=== PATIENT | male | born 1970 | race Caucasian/White ===

== ENCOUNTER 2023-06-03 06:41 | Outpatient (OUT) | payer OTHER, SELFPAY ==
[2023-06-03 07:11] LABS: Basophils Absolute Auto 0.1 10^3/uL (0.0-0.1); Basophils Percent Auto 0.7 % (0.2-2.0); Eosinophils Absolute Auto 0.1 10^3/uL (0.0-0.7); Eosinophils Percent Auto 1.5 % (0.9-7.0); Hematocrit 42.1 % (42.0-54.0); Immature Granulocytes Abs Auto 0.02 10^3/uL (0.00-0.03); Immature Granulocytes Pct Auto 0.3 % (0.0-0.5); Lymphocytes Absolute Auto 1.8 10^3/uL (1.2-3.8); Lymphocytes Percent Auto 26.9 % (20.5-60.0); Mean Corpuscular HGB Conc 35.6 g/dL (29.9-35.2); Mean Platelet Volume 9.1 fL (9.5-13.5); Monocytes Absolute Auto 0.3 10^3/uL (0.3-0.8); Monocytes Percent Auto 4.3 % (1.7-12.0); Neutrophils Absolute Auto 4.5 10^3/uL (1.4-6.5); Neutrophils Percent Auto 66.3 % (43.0-75.0); Platelet Count 225 10^3/uL (150-450); Red Blood Count 4.84 10^6/uL (4.70-6.10); Red Cell Distribution Width 12.4 % (11.0-15.0); White Blood Count 6.8 10^3/uL (4.0-11.0)
[2023-06-03 07:51] LABS: Alanine Aminotransferase 33 U/L (16-63); Albumin Globulin Ratio 0.9; Albumin Level 3.6 g/dL (3.4-5.0); Alkaline Phosphatase 105 U/L (46-116); Anion Gap 9.5; Aspartate Amino Transferase 13 U/L (15-37); BUN Creatinine Ratio 12.5; Bilirubin Total 0.4 mg/dL (0.2-1.0); Calcium 8.5 mg/dL (8.5-10.1); Carbon Dioxide 30.1 mmol/L (21.0-32.0); Chloride 102 mmol/L (98-107); Chol HDL Ratio 4.9; Cholesterol 153 mg/dL (<=200); Estimated GFR (African America >60 (>=60); Estimated GFR (Non-African Ame >60 (>=60); Globulin 3.8 g/dL; Glucose 118 mg/dL (74-106); HDL Cholesterol 31 mg/dL (40-60); Potassium 3.6 mmol/L (3.5-5.1); Sodium 138 mmol/L (136-145); Total Protein 7.4 g/dL (6.4-8.2); Triglycerides 532 mg/dL (<=150); VLDL CHOLESTEROL 106.4 mg/dL
[2023-06-03 07:56] LABS: LDL Cholesterol Direct 49 mg/dL; Prostate Specific Antigen Scrn 0.64 ng/mL (<=4.00)
== END 2023-06-03 06:42 | disposition home or self-care (01) ==
LOC: LAB 06:41
PROVIDERS: PCP Internal Medicine; Visit Provider Internal Medicine
DX: Z00.00 Encounter for general adult medical examination without abnormal findings (principal); Z12.5 Encounter for screening for malignant neoplasm of prostate
CPT/HCPCS: 36415; 80053; 80061; 83721; 85025; G0103

== ENCOUNTER 2023-10-04 06:43 | Outpatient (OUT) | payer OTHER, SELFPAY ==
[2023-10-04 07:07] LABS: Basophils Absolute Auto 0.1 10^3/uL (0.0-0.1); Basophils Percent Auto 0.8 % (0.2-2.0); Eosinophils Absolute Auto 0.1 10^3/uL (0.0-0.7); Eosinophils Percent Auto 1.3 % (0.9-7.0); Hematocrit 45.3 % (42.0-54.0); Hemoglobin 15.9 g/dL (14.0-18.0); Immature Granulocytes Abs Auto 0.03 10^3/uL (0.00-0.03); Immature Granulocytes Pct Auto 0.4 % (0.0-0.5); Lymphocytes Absolute Auto 2.1 10^3/uL (1.2-3.8); Lymphocytes Percent Auto 27.2 % (20.5-60.0); Mean Corpuscular HGB Conc 35.1 g/dL (29.9-35.2); Mean Corpuscular Hemoglobin 30.2 pg (25.9-34.0); Mean Platelet Volume 9.1 fL (9.5-13.5); Monocytes Absolute Auto 0.3 10^3/uL (0.3-0.8); Monocytes Percent Auto 4.2 % (1.7-12.0); Neutrophils Absolute Auto 5.1 10^3/uL (1.4-6.5); Neutrophils Percent Auto 66.1 % (43.0-75.0); Platelet Count 221 10^3/uL (150-450); Red Blood Count 5.27 10^6/uL (4.70-6.10); Red Cell Distribution Width 12.1 % (11.0-15.0); White Blood Count 7.7 10^3/uL (4.0-11.0)
[2023-10-04 07:49] LABS: Chol HDL Ratio 3.8; Cholesterol 180 mg/dL (<=200); Glucose 120 mg/dL (74-106); HDL Cholesterol 47 mg/dL (40-60); Thyroid Stimulating Hormone 1.961 uIU/mL (0.358-3.740); Triglycerides 349 mg/dL (<=150); VLDL CHOLESTEROL 69.8 mg/dL
[2023-10-05 04:07] LABS: DHEA-Sulfate 84.3 ug/dL (71.6-375.4); Estradiol 29.1 pg/mL (7.6-42.6); FSH 4.7 mIU/mL (1.5-12.4); Luteinizing Hormone(LH) 4.6 mIU/mL (1.7-8.6); Prolactin 18.3 ng/mL (3.6-25.2)
[2023-10-07 21:06] LABS: Free Testosterone(Direct) 3.6 pg/mL (7.2-24.0); Testosterone 118 ng/dL (264-916)
== END 2023-10-04 06:44 | disposition home or self-care (01) ==
LOC: LAB 06:43
PROVIDERS: PCP Internal Medicine
DX: E29.1 Testicular hypofunction (principal); E29.0 Testicular hyperfunction; R53.83 Other fatigue; E55.9 Vitamin D deficiency, unspecified; Z13.220 Encounter for screening for lipoid disorders
CPT/HCPCS: 36415; 80061; 82306; 82627; 82670; 82947; 83001; 83002; 84146; 84153; 84402; 84403; 84443; 85025

== ENCOUNTER 2024-06-02 06:53 | Outpatient (OUT) | payer OTHER, SELFPAY ==
--- OUTSIDE RECORDS SUMMARY | 2024-06-02 06:56 | XMS_ITS | CCD ---
Author Organization [facility] Care Team Providers Care Dry Wall Installations Mechanic Name Role Phone Lenny Devonte Zafar Unavailable Unavailable Unavailable Deidre, Dr. Mikey Weinberg Attending Kenisha vailable Devonte Galvez yeni Primary Care Unavailabl e Traboulvandana, Dr. Beyer Referring Unavaila ble Traboulssi, Dr. Beyer Attending Unavaila ble Devonte Galvez [facility] Care Unavailabl e Traboulsophiei, Dr. Beyer Referring Unavaila ble Traboulssi, Dr. Beyer Attending Unavaila ble Timothy, Dr. Jax Terry Attending Unava ilable Timothy, Dr. Jax Terry Attending Unava ilable Latanya Fulton Consulting Unavailable Semaskiene, Jane Attending Unavailable SemaskieneJane Admitting Unavailable Devonte Galvez Primary Care Unavailable Jaswinder Bo Referring Unavailable Consuelo Aguirre Consulting Unavailable JiangMikey chung Consulting Unavailable McGuinJax valdez Consulting Unavail able TraboulJaswinder ross Consulting Unavailable Harrison Campoverde Consulting Unavailab Lashawn Cook Consulting Unavailable Luiza Marsh Consulting Unavailable Hattie Mart Consulting Unavailab daya Narayanan, Tyrone Consulting Unavailable Devonte Galvez Unavailable LENNY, DR ROMO Attending Unavailable LENNY, DR ROMO Consulting Unavailable BALL, DR ROMO Primary Care Unavailable BALL, DR ROMO Admitting Unavailable REQUEST, DR MOMIN LISTED Consulting Unavaila ble BALL, DR ROMO Primary Care Unavailable REQUEST, DR MOMIN LISTED Admitting Unavaila ble REQUEST, DR MOMIN LISTED Attending Unavaila ble REQUEST, NONE LISTED Primary Care Unavaila ble MISC, DR ARTHUR Consulting Unavailable MISC, DR ARTHUR Admitting Unavailable MISC, DR ARTHUR Attending Unavailable REQUEST, NONE LISTED Primary Care Unavaila ble MISC, DR DOCTOR Consulting Unavailable [facility], DR DOCTOR Admitting Unavailable [facility], DOCTOR Attending Unavailable MIS, DOCTOR Attending Unavailable MISC, DOCTOR Primary Care Unavailable [facility], DOCTOR Admitting Unavailable JASWINDER BO Attending Unavailable DEVONTE GALVEZ Primary Care UnavailDevonte Liu DO Primary Care Provider Medications Current Medications Medication Drug Class(es) Dates Sig (Normalized) Sig (Original) atorvastatin 10 mg oral tablet (11 sources) HMG-CoA Reductase Inhibitor Start: 12-02-2023 End: 05-29-2024 take 10 mg by mouth once daily Atorvastatin Active 10 MG PO Daily 90 90 May 29, 2024 3:59pm hydrocortisone 25 mg/ml topical cream (1 source) Corticosteroid Start: 09-22-2020 Proctosol HC 2.5 % 1 application Externally Twice a day for 10 day(s) Sep, Active Mens Multivitamin - (5 sources) Mens Multivitami n - as directed Orally Active Yyahyoku-Jlg-Ndmlj-V it K-Lycop (Men's Daily Formula) 400-20-300 mcg tablet (2 sources) Start: 12-02-2023 take 1 tablet by mouth once Pyjhgpol-Dbd-Sahb c-Vit K-Lycop (Men's Daily Formula) 400-20-300 mcg tablet Active TAB PO December 02, 2023 1:00am Start: 12-02-2023 take 1 tablet by emil once Usdqfkzk-Znb-Zzybf-Vit K-Lycop (Men's Daily Formula) 400-20-300 mcg tablet Active TAB PO December 02, 2023 12:00am Vitamin D 50 MCG (1999) (4 sources) take 1 capsule by mo ut once daily Vitamin D 50 MCG (1999) 1 capsule Orally Once a day Active Completed/Discontinued Medications Medication Drug Class(es) Dates Sig (Normalized) Sig (Original) amLODIPine 10 mg oral tablet (9 sources) Dihydropyridine Calcium Channel Dariana Start: 12-02-2023 End: 12-06-2023 take 10 mg by mouth once daily Amlodipine Discontinued 10 MG PO Daily December 02, 2023 1:00am December 06, 2023 2:20pm Start: 08-13-2021 End: 02-18-2022 take 10 mg by mouth once daily Amlodipine Discontinued 10 MG PO Daily August 13, 2021 12:00am February 18, 2022 4:33pm cholecalciferol 0.05 mg oral capsule (3 sources) Vitamin D Start: 12-02-2023 End: 05-29-2024 take 50 ug by mouth once daily Cholecalciferol (Vitamin D3) Discontinued 50 MCG PO Daily December 02, 2023 1:00am May 29, 2024 4:04pm 24 hr dilTIAZem hydrochloride 240 mg extended release oral capsule (17 sources) Calcium Channel Dariana Start: 03-25-2022 End: 10-20-2024 take 360 mg by mouth once daily Diltiazem Hcl Discontinued 360 MG PO Daily December 06, 2023 2:19pm May 29, 2024 4:06pm Start: 02-18-2022 End: 12-06-2023 take 240 mg by mouth once daily Diltiazem Hcl Discontinued 240 MG PO Daily December 03, 2023 4:28pm December 06, 2023 2:35pm hydroCHLOROthiazide 25 mg oral tablet (18 sources) Thiazide Diuretic Start: 08-13-2021 End: 10-20-2024 take 25 mg by mouth once daily Hydrochlorothiazide Discontinued 25 MG PO Daily December 03, 2023 4:29pm January 27, 2024 6:10pm 24 hr metoprolol succinate 50 mg extended release oral tablet (2 sources) beta-Adrenergic Dariana Start: 08-13-2021 End: 02-15-2022 Metoprolol Succinate Discontinued 50 MG PO As Directed August 13, 2021 12:00am February 15, 2022 5:50pm rivaroxaban 20 mg oral tablet (16 sources) Factor Xa Inhibitor Start: 02-18-2022 End: 10-20-2024 take 1 tablet by mouth once daily Rivaroxaban (Xarelto) 20 mg tablet Discontinued 20 MG PO Daily December 03, 2023 4:29pm May 29, 2024 4:06pm valsartan 320 mg oral tablet (16 sources) Angiotensin 2 Receptor Dariana Start: 08-13-2021 End: 10-20-2024 take 320 mg by mouth once daily Valsartan Discontinued 320 MG PO Daily December 03, 2023 4:30pm May 29, 2024 4:06pm Problems Active Problems Problem Classification Problem Date Documented Date Episodic/Chronic Acute bronchitis (5 sources) Acute bronchitis; Translations: [Acute bronchitis due to other specified organisms] Episodic Anal and rectal conditions (9 sources) Perirectal abscess; Translations: [Rectal abscess] Episodic Aortic; peripheral; and visceral artery aneurysms (20 sources) Aortic root dilatation; Translations: [Thoracic aortic ectasia] Onset: 10-14-2023 Chronic Cardiac dysrhythmias (20 sources) Persistent atrial fibrillation; Translations: [Atrial fibrillation] Onset: 02-16-2022 Chronic Conduction disorders (2 sources) Right bundle branch block; Translations: [Unspecified right bundle-branch block] Onset: 10-21-2023 10-21-2023 Chronic Disorders of lipid metabolism (20 sources) Hypertriglyceridemia; Translations: [Pure hyperglyceridemia] Onset: 09-19-2022 Chronic Essential hypertension (20 sources) Benign essential hypertension; Translations: [Benign essential hypertension] Onset: 02-15-2022 Chronic Hemorrhoids (9 sources) Residual hemorrhoidal skin tags; Translations: [Residual hemorrhoidal skin tags] Episodic Inflammation; infection of eye (except that caused by tuberculosis or sexually transmitteddisease) (4 sources) Acute atopic conjunctivitis; Translations: [Acute atopic conjunctivitis, bilateral] Episodic Other aftercare (5 sources) Drug therapy finding; Translations: [Long-term (current) use of anticoagulants] Episodic Other aftercare (5 sources) Long-term current use of anticoagulant; Translations: [bed bug exterminator (current) use of anticoagulants] Episodic Other aftercare (1 source) bed bug exterminator (current) use of anticoagulants Episodic Other and ill-defined heart disease (5 sources) Left ventricular hypertrophy; Translations: [Cardiomegaly] Chronic Other and ill-defined heart disease (4 sources) Cardiomegaly; Translations: [Cardiomegaly] Chronic Other hematologic conditions (4 sources) Secondary polycythemia; Translations: [SECONDARY POLYCYTHEMIA] Onset: 12-24-2022 Episodic Other inflammatory condition of skin (5 sources) Seborrheic dermatitis of scalp; Translations: [Seborrheic dermatitis, unspecified] Episodic Other inflammatory condition of skin (4 sources) Seborrheic dermatitis; Translations: [Seborrheic dermatitis, unspecified] Episodic Other nutritional; endocrine; and metabolic disorders (12 sources) Body mass index 40+ - severely obese; Translations: [Morbid obesity] Onset: 10-21-2023 12-02-2023 Chronic Other nutritional; endocrine; and metabolic disorders (5 sources) Lipoprotein deficiency disorder; 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 Other nutritional; endocrine; and metabolic disorders (9 sources) Morbid obesity; Translations: [Morbid (severe) obesity due to excess calories] Onset: 05-19-2022 Chronic Other nutritional; endocrine; and metabolic disorders (2 sources) Morbid (severe) obesity due to excess calories Chronic Other nutritional; endocrine; and metabolic disorders (4 sources) Lipoprotein deficiency; Translations: [LIPOPROTEIN DEFICIENCY] Onset: 09-14-2022 Chronic Other nutritional; endocrine; and metabolic disorders (4 sources) Obesity; Translations: [Obesity, unspecified] Chronic Other nutritional; endocrine; and metabolic disorders (3 sources) Body mass index (BMI) 40.0-44.9, adult; Translations: [Body mass index (BMI) 40.0-44.9, adult ([facility])] Onset: 10-21-2023 Chronic Other nutritional; endocrine; and metabolic disorders (2 sources) Obesity caused by energy imbalance; Translations: [Morbid (severe) obesity due to excess calories] Onset: 05-19-2022 12-02-2023 Chronic Other screening for suspected conditions (not mental disorders or infectious disease) (2 sources) Encounter for screening for malignant neoplasm of prostate; Translations: [Screening for malignant neoplasms of prostate] Episodic Other upper respiratory disease (4 sources) Allergic rhinitis; Translations: [Allergic rhinitis, unspecified] Chronic Other upper respiratory infections (4 sources) Acute maxillary sinusitis; Translations: [Acute maxillary sinusitis, unspecified] Episodic Residual codes; unclassified (18 sources) Obstructive sleep apnea syndrome; Translations: [Obstructive sleep apnea (adult)(pediatric)] Onset: 10-14-2023 12-02-2023 Chronic Residual codes; unclassified (1 source) Sleep apnea, unspecified; Translations: [G47.30 - Sleep apnea, unspecified] Onset: 02-15-2022 Chronic Residual codes; unclassified (6 sources) Obstructive sleep apnea (adult) (pediatric); Translations: [Obstructive sleep apnea (adult)(pediatric)] Onset: 10-14-2023 Chronic Residual codes; unclassified (2 sources) Sleep apnea; Translations: [Sleep apnea, unspecified] 09-29-2023 Chronic Sprains and strains (8 sources) Neck sprain; Translations: [Strain of muscle, fascia and tendon at neck level, initial encounter] Onset: 11-11-2016 Episodic Unclassified (1 source) I48.91 - Unspecified atrial fibrillation; Translations: [I48.91 - Unspecified atrial fibrillation] Onset: 02-15-2022 Unclassified (2 sources) Other persistent atrial fibrillation; Translations: [Other persistent atrial fibrillation (CMS/HCC)] Onset: 10-14-2023 Viral infection (4 sources) Disease caused by 2019-nCoV; Translations: [COVID-19] Past or Other Problems Problem Classification Problem Date Documented Da te Episodic/Chronic Cardiac dysrhythmias (4 sources) Palpitations; Translations: [Palpitations] Onset: 05-02-2019 Episodic Immunizations and screening for infectious disease (5 sources) Patient encounter status; Translations: [Other specified vaccination] Resolved: 03-04-2023 Episodic Unclassified (5 sources) Never smoked tobacco; Translations: [Never a smoker] Results Test Name Value Interpretation Reference Range Facility ECG 12 Leadon 10-21-2023 Normal sinus rhythm with right bundle branch block [facility] Work Phone: CBC AUTO DIFFon 12-24-2022 BASO # 0.1 103/ul Normal 0.0-0.1 [facility] Comment on above: Performed By: #### C BC #### [facility] [address] [address] [address] Amish Chowdhury Basophils/100 WBC (Bld) 0.7 % Normal 0.2-2.0 [facility] Comment on above: Performed By: #### C BC #### [facility] [address] [address] [address] Amish Chowdhury EO # 0.1 103/ul Normal 0.0-0.7 [facility] Comment on above: Performed By: #### C BC #### [facility] [address] [address] [address] Amish Chowdhury Eosinophils/100 WBC (Bld) 1.2 % Normal 0.9-7.0 [facility] Comment on above: Performed By: #### C BC #### [facility] [address] [place] [address] Dr. Amish Chowdhury Erythrocyte distribution width (RBC) [Ratio] 12.8 % Normal 11.0-15.0 [facility] Comment on above: Performed By: #### C BC #### [facility] [address] [place] [address] Dr. Amish Chowdhury Hematocrit (Bld) [Volume fraction] 47.6 % Normal 42.0-54.0 [facility] Comment on above: Performed By: #### C BC #### [facility] [address] [place] [address] Dr. Amish Chowdhury Hemoglobin (Bld) [Mass/Vol] 16.8 g/dL Normal 14.0-18.0 [facility] Comment on above: Performed By: #### C BC #### [facility] [address] [place] [address] Dr. Amish Chowdhury IG # 0.02 10e3/ul Normal 0.00-0.03 [facility] Comment on above: Performed By: #### C BC #### [facility] [address] [place] [address] Dr. Amish Chowdhury IG % 0.3 % Normal 0.0-0.5 [facility] Comment on above: Performed By: #### C BC #### [facility] [address] [place] [address] Dr. Amish Chowdhury LYMPH # 1.9 103/ul Normal 1.2-3.8 [facility] Comment on above: Performed By: #### C BC #### [facility] [address] [place] [address] Dr. Amish Chowdhury Lymphocytes/100 WBC (Bld) 28.3 % Normal 20.5-60.0 [facility] Comment on above: Performed By: #### C BC #### [facility] [address] [place] [address] Dr. Amish Chowdhury MANUAL DIFF REQ NO Normal [facility] Comment on above: Performed By: #### C BC #### [facility] [address] [place] [address] Dr. Amish Chowdhury MCH (RBC) [Entitic mass] 29.9 pg Normal 25.9-34.0 [facility] Comment on above: Performed By: #### C BC #### [facility] [address] [place] [address] Dr. Amish Chowdhury MCHC (RBC) [Mass/Vol] 35.3 g/dL Critically high 29.9-35.2 [facility] Comment on above: Performed By: #### C BC #### [facility] [address] [place] [address] Dr. Amish Chowdhury MCV (RBC) [Entitic vol] 84.8 fL Normal 80.0-94.0 [facility] Comment on above: Performed By: #### C BC #### [facility] [address] [place] [address] Dr. Amish Chowdhury MONO # 0.2 103/ul Critically low 0.3-0.8 [facility] Comment on above: Performed By: #### C BC #### [facility] [address] [place] [address] Dr. Amish Chowdhury Monocytes/100 WBC (Bld) 3.6 % Normal 1.7-12.0 [facility] Comment on above: Performed By: #### C BC #### [facility] [address] [place] [address] Dr. Amish Chowdhury NEUT # 4.4 103/ul Normal 1.4-6.5 [facility] Comment on above: Performed By: #### C BC #### [facility] [address] [place] [address] Dr. Amish Chowdhury Neutrophils/100 WBC (Bld) 65.9 % Normal 43.0-75.0 [facility] Comment on above: Performed By: #### C BC #### [facility] [address] [place] [address] Dr. Amish Chowdhury Platelet mean volume (Bld) [Entitic vol] 8.9 fL Critically low 9.5-13.5 [facility] Comment on above: Performed By: #### C BC #### [facility] [address] [place] [address] Dr. Amish Chowdhury PLT 210 103/ul Normal 150-450 [facility] Comment on above: Performed By: #### C BC #### [facility] [address] [place] [address] Dr. Amish Chowdhury RBC 5.61 106/ul Normal 4.70-6.10 [facility] Comment on above: Performed By: #### C BC #### [facility] [address] [place] [address] Dr. Amish Chowdhury WBC 6.7 103/ul Normal 4.0-11.0 [facility] Comment on above: Performed By: #### C BC #### [facility] [address] [place] [address] Dr. Amish Chowdhury CBC AUTO DIFFon 10-08-2022 BASO # 0.0 103/ul Normal 0.0-0.1 [facility] Comment on above: Performed By: #### C BC #### [facility] [address] [place] [address] Dr. Amish Chowdhury Basophils/100 WBC (Bld) 0.3 % Normal 0.2-2.0 [facility] Comment on above: Performed By: #### C BC #### [facility] [address] [place] [address] Dr. Amish Chowdhury EO # 0.1 103/ul Normal 0.0-0.7 [facility] Comment on above: Performed By: #### C BC #### [facility] [address] [place] [address] Dr. Amish Chowdhury Eosinophils/100 WBC (Bld) 0.8 % Critically low 0.9-7.0 [facility] Comment on above: Performed By: #### C BC #### [facility] [address] [place] [address] Dr. Amish Chowdhury Erythrocyte distribution width (RBC) [Ratio] 13.1 % Normal 11.0-15.0 [facility] Comment on above: Performed By: #### C BC #### [facility] [address] [place] [address] Dr. Amish Chowdhury Hematocrit (Bld) [Volume fraction] 50.4 % Normal 42.0-54.0 [facility] Comment on above: Performed By: #### C BC #### [facility] [address] [place] [address] Dr. Amish Chowdhury Hemoglobin (Bld) [Mass/Vol] 17.4 g/dL Normal 14.0-18.0 [facility] Comment on above: Performed By: #### C BC #### [facility] [address] [place] [address] Dr. Amish Chowdhury IG # 0.03 10e3/ul Normal 0.00-0.03 [facility] Comment on above: Performed By: #### C BC #### [facility] [address] [place] [address] Dr. Amish Chowdhury IG % 0.3 % Normal 0.0-0.5 [facility] Comment on above: Performed By: #### C BC #### [facility] [address] [place] [address] Dr. Amish Chowdhury LYMPH # 2.5 103/ul Normal 1.2-3.8 [facility] Comment on above: Performed By: #### C BC #### [facility] [address] [place] [address] Dr. Amish Chowdhury Lymphocytes/100 WBC (Bld) 26.6 % Normal 20.5-60.0 [facility] Comment on above: Performed By: #### C BC #### [facility] [address] [place] [address] Dr. Amish Chowdhury MANUAL DIFF REQ NO Normal [facility] Comment on above: Performed By: #### C BC #### [facility] [address] [place] [address] Dr. Amish Chowdhury MCH (RBC) [Entitic mass] 29.8 pg Normal 25.9-34.0 [facility] Comment on above: Performed By: #### C BC #### [facility] [address] [place] [address] Dr. Amish Chowdhury MCHC (RBC) [Mass/Vol] 34.5 g/dL Normal 29.9-35.2 [facility] Comment on above: Performed By: #### C BC #### [facility] [address] [place] [address] Dr. Amish Chowdhury MCV (RBC) [Entitic vol] 86.3 fL Normal 80.0-94.0 [facility] Comment on above: Performed By: #### C BC #### [facility] [address] [place] [address] Dr. Amish Chowdhury MONO # 0.3 103/ul Normal 0.3-0.8 [facility] Comment on above: Performed By: #### C BC #### [facility] [address] [place] [address] Dr. Amish Chowdhury Monocytes/100 WBC (Bld) 3.6 % Normal 1.7-12.0 [facility] Comment on above: Performed By: #### C BC #### [facility] [address] [place] [address] Dr. Amish Chowdhury NEUT # 6.5 103/ul Normal 1.4-6.5 [facility] Comment on above: Performed By: #### C BC #### [facility] [address] [place] [address] Dr. Amish Chowdhury Neutrophils/100 WBC (Bld) 68.4 % Normal 43.0-75.0 [facility] Comment on above: Performed By: #### C BC #### [facility] [address] [place] [address] Dr. Amish Chowdhury Platelet mean volume (Bld) [Entitic vol] 9.5 fL Normal 9.5-13.5 [facility] Comment on above: Performed By: #### C BC #### [facility] [address] [place] [address] Dr. Amish Chowdhury PLT 226 103/ul Normal 150-450 [facility] Comment on above: Performed By: #### C BC #### [facility] [address] [place] [address] Dr. Amish Chowdhury RBC 5.84 106/ul Normal 4.70-6.10 [facility] Comment on above: Performed By: #### C BC #### [facility] [address] [place], [place] [address] Dr. Amish Chowdhury WBC 9.6 103/ul Normal 4.0-11.0 [facility] Comment on above: Performed By: #### C BC #### [facility] [address] [place], [place] [address] Dr. Amish Chowdhury DIRECT LDLon 09-14-2022 Cholesterol in LDL [Mass/Vol] 67 mg/dL Normal [facility] Comment on above: Performed By: #### A LT, DLDL #### [facility] [address] [place], [place] [address] Dr. Amish Chowdhury DLDL NORMAL SEE BELOW Normal [facility] Comment on above: Result Comment: <100 mg/dl OPTIMAL 100 - 129 mg/dl NEAR OR ABOVE OPTIMAL 130 - 159 mg/dl BORDERLINE HIGH 160 - 189 mg/dl HIGH >190 mg/dl VERY HIGH Performed By: #### A LT, DLDL #### [facility] [address] [place], [place] [address] Dr. Amish Chowdhury Office Visit (Cardiology)on 09-14-2022 Follow-up visit Diagnoses/Problems Assessed Persistent atrial fibrillation (427.31) (I48.19) Anticoagulated (V58.61) (Z79.01) Essential hypertension, benign (401.1) (I10) Never a smoker Obstructive sleep apnea syndrome (327.23) (G47.33) Dilated aortic root (447.71) (I77.810) Morbid obesity with BMI of 45.0-49.9, adult (278.01,V85.42) (E66.01,Z68.42) Orders Morbid obesity with BMI of 45.0-49.9, adult Healthy Weight Tips; Status:Complete - Retrospective Authorization; Done: 14Sep2022 Some eating tips that can help you lose weight.; Status:Complete - Retrospective Authorization; Done: 14Sep2022 SocHx: Never a smoker Tobacco Use Screening; Status:Complete; Done: 14Sep2022 Patient Instructions Please bring all medicines, vitamins, and herbal supplements with you when you come to the office. Prescriptions will not be filled unless you are compliant with your follow up appointments or have a follow up appointment scheduled as per instruction of your physician. Refills should be requested at the time of your visit. Follow up in 6 months with EKG Chief Complaint BJ ADAME is being seen for a 6 month follow-up of. History of Present Illness Patient is here for follow-up continue management for history of atrial fibrillation status post recent ELVA guided cardioversion, hypertension, long-term anticoagulation sleep apnea and obesity. Since last time I saw him he denies any cardiac complaint of chest pain, palpitation, lightheadedness, dizziness or syncope. He remains fairly active. He described functional class I. He had no chest pain or shortness of breath. He report compliance with his medication and CPAP. He report laboratory data done recently and we will try to retrieve those results. He had no recurrence of his atrial fibrillation based on his home heart rate monitoring device Assessment 1. Persistent atrial fibrillation status post ELVA guided cardioversion remain in normal sinus rhythm. Patient does have home heart rate monitoring device. He made the criteria for anticoagulation. Remained in normal sinus rhythm 2. Hypertension controlled on home reading 3. Long-term anticoagulation tolerating that well without any side effect 4. Sleep apnea compliant with his CPAP 5. Morbid obesity 6. Mildly dilated aortic root at 3.8 sonometer Plan 1. I recommend the patient to continue present medical therapy 2. I counseled him regarding losing weight, exercise and dietary modification. I advised him to consider bariatric surgery 3. I encouraged him to be compliant with his CPAP machine 4. The natural history of atrial fibrillation discussed with patient at length the possible recurrence and need for ablation and or antiarrhythmic discussed with the patient 5. Follow-up in 6 months or earlier if the need arise 6. We discussed ischemic evaluation but the patient elected to defer in view of excellent exercise tolerance and functional class I Surgical History Problems History of Cardioversion History of Cholecystectomy History of Complete colonoscopy Managed By: Teresita XIAO, Shady Devries (Unknown) Current Meds Medication NameInstruction dilTIAZem HCl ER Coated Beads 360 MG Oral Capsule Extended Release 24 HourTAKE 1 CAPSULE Daily hydroCHLOROthiazide 25 MG Oral TabletTAKE 1 TABLET DAILY. Valsartan 320 MG Oral TabletTAKE 1 TABLET ONCE DAILY. Xarelto 20 MG Oral TabletTAKE 1 TABLET BY MOUTH ONCE DAILY WITH SUPPER Patient did not bring medication list or bottles. Updated verbally with patient Allergies Medication No Known Drug Allergies Recorded By: Megan Blair; 03/25/2022 1:07:58 PM Social History Problems Never a smoker No alcohol use No illicit drug use Occasional caffeine consumption Review of Systems Constitutional: not feeling tired. Cardiovascular: no intermittent leg claudication and as noted in HPI. Respiratory: no cough and no shortness of breath. Gastrointestinal: no change in bowel habits and no blood in stools. Integumentary: no skin rashes. Neurological: no seizures and no frequent falls. All other systems have been reviewed and are negative for complaint. Vitals Vital Signs Recorded: 14Sep2022 09:22AMRecorded: 14Sep2022 09:05AM Pcugzskp415, RUE, Ukknctm324, LUE, Sitting Xcqkxuwlm94, RUE, Ijdvkqt50, LUE, Sitting Heart Rate72, L Radial Height6 ft 4 in Liwuda505 lb BMI Auxwwveclc69.04 kg/m2 BSA Calculated2.88 Tobacco Useb) No Falls Screening (Age 18+)c) Not medically indicated Physical Exam Constitutional: alert and in no acute distress. Neck: neck is supple, symmetric, trachea midline, no masses and no thyromegaly . Pulmonary: no increased work of breathing or signs of respiratory distress and lungs clear to auscultation. Cardiovascular: carotid pulses 2+ bilaterally with no bruit , JVP was normal, no thrills , regular rhythm, normal S1 and S2, no murmurs , pedal pulses 2+ bilaterally and no edema . Abdomen: abdomen non-tender, no masses and no hepatomega (more content not included)... Normal Touchworks SGPTon 09-14-2022 ALT [Catalytic activity/Vol] 27 U/L Normal 16-63 [facility] Comment on above: Performed By: #### A LT, DLDL #### [facility] [address] [place], [place] [address] Dr. Amish Chowdhury Tobacco Screening.on 022 Fall risk assessment c) Not medically indicated -[facility] 250 DO Work Phone: Tobacco use status CP b) No -[facility] 250 DO Work Phone: CBC AUTO DIFFon 06-24-2022 BASO # 0.0 103/ul Normal 0.0-0.1 [facility] Comment on above: Performed By: #### D ATCBC #### [facility] [address] [place] [address] Dr. Amish Chowdhury Basophils/100 WBC (Bld) 0.3 % Normal 0.2-2.0 [facility] Comment on above: Performed By: #### D ATCBC #### [facility] [address] [place] [address] Dr. Amish Chowdhury EO # 0.1 103/ul Normal 0.0-0.7 [facility] Comment on above: Performed By: #### D ATCBC #### [facility] [address] [place] [address] Dr. Amish Chowdhury Eosinophils/100 WBC (Bld) 0.7 % Critically low 0.9-7.0 [facility] Comment on above: Performed By: #### D ATCBC #### [facility] [address] [place] [address] Dr. Amish Chowdhury Erythrocyte distribution width (RBC) [Ratio] 13.9 % Normal 11.0-15.0 [facility] Comment on above: Performed By: #### D ATCBC #### [facility] [address] [place] [address] Dr. Amish Chowdhury Hematocrit (Bld) [Volume fraction] 54.4 % Critically high 42.0-54.0 [facility] Comment on above: Performed By: #### D ATCBC #### [facility] [address] [place] [address] Dr. Amish Chowdhury Hemoglobin (Bld) [Mass/Vol] 17.9 g/dL Normal 14.0-18.0 [facility] Comment on above: Performed By: #### D ATCBC #### [facility] [address] [place] [address] Dr. Amish Chowdhury IG # 0.03 10e3/ul Normal 0.00-0.03 [facility] Comment on above: Performed By: #### D ATCBC #### [facility] [address] [place] [address] Dr. Amish Chowdhury IG % 0.3 % Normal 0.0-0.5 [facility] Comment on above: Performed By: #### D ATCBC #### [facility] [address] [place] [address] Dr. Amish Chowdhury LYMPH # 1.5 103/ul Normal 1.2-3.8 [facility] Comment on above: Performed By: #### D ATCBC #### [facility] [address] [place] [address] Dr. Amish Chowdhury Lymphocytes/100 WBC (Bld) 16.5 % Critically low 20.5-60.0 [facility] Comment on above: Performed By: #### D ATCBC #### [facility] [address] [place] [address] Dr. Amish Chowdhury MCH (RBC) [Entitic mass] 29.1 pg Normal 25.9-34.0 [facility] Comment on above: Performed By: #### D ATCBC #### [facility] [address] [place] [address] Dr. Amish Chowdhury MCHC (RBC) [Mass/Vol] 32.9 g/dL Normal 29.9-35.2 [facility] Comment on above: Performed By: #### D ATCBC #### [facility] [address] [place] [address] Dr. Amish Chowdhury MCV (RBC) [Entitic vol] 88.5 fL Normal 80.0-94.0 [facility] Comment on above: Performed By: #### D ATCBC #### [facility] [address] [place] [address] Dr. Amish Chowdhury MONO # 0.4 103/ul Normal 0.3-0.8 [facility] Comment on above: Performed By: #### D ATCBC #### [facility] [address] [place] [address] Dr. Amish Chowdhury Monocytes/100 WBC (Bld) 4.5 % Normal 1.7-12.0 [facility] Comment on above: Performed By: #### D ATCBC #### [facility] [address] [place] [address] Dr. Amish Chowdhury NEUT # 7.0 103/ul Critically high 1.4-6.5 [facility] Comment on above: Performed By: #### D ATCBC #### [facility] [address] [place] [address] [address] Amish Chowdhury Neutrophils/100 WBC (Bld) 77.7 % Critically high 43.0-75.0 [facility] Comment on above: Performed By: #### D ATCBC #### [facility] [address] [place] [address] [address] Amish Chowdhury Platelet mean volume (Bld) [Entitic vol] 9.4 fL Critically low 9.5-13.5 [facility] Comment on above: Performed By: #### D ATCBC #### [facility] [address] [place] [address] Dr. Amish Chowdhury PLT 238 103/ul Normal 150-450 [facility] Comment on above: Performed By: #### D ATCBC #### [facility] [address] [place] [address] Dr. Amish Chowdhury RBC 6.15 106/ul Critically high 4.70-6.10 [facility] Comment on above: Performed By: #### D ATCBC #### [facility] [address] [place] [address] [address] Amish Chowdhury WBC 9.0 103/ul Normal 4.0-11.0 [facility] Comment on above: Performed By: #### D ATCBC #### [facility] [address] [place] [address] [address] Amish Chowdhury GAIL- BMP WITH LIPIDon 2021 Anion gap [Moles/Vol] 10.4 mmol/L Normal [facility] Comment on above: Performed By: #### D ATPSA, DATBMP #### [facility] [address] [place] [address] [address] Amish Chowdhury Calcium [Mass/Vol] 9.0 mg/dL Normal 8.5-10.1 [facility] Comment on above: Performed By: #### D ATPSA, DATBMP #### [facility] [address] [place] [address] [address] Amish Chowdhury Chloride [Moles/Vol] 101 mmol/L Normal 98-107 [facility] Comment on above: Performed By: #### D ATPSA, DATBMP #### [facility] [address] [place] [address] [address] Amish Chowdhury Cholesterol [Mass/Vol] 178 mg/dL Normal <=200 [facility] Comment on above: Performed By: #### D ATPSA, DATBMP #### [facility] [address] [place] [address] [address] Amish Chowdhury Cholesterol in HDL [Mass/Vol] 41 mg/dL Normal 40-60 [facility] Comment on above: Performed By: #### D ATPSA, DATBMP #### [facility] [address] [place] [address] [address] Amish Chowdhury Cholesterol in LDL [Mass/Vol] 90.0 mg/dL Normal [facility] Comment on above: Performed By: #### D ATPSA, DATBMP #### [facility] [address] [place] [address] [address] Amish Chowdhury CO2 [Moles/Vol] 29.4 mmol/L Normal 21.0-32.0 [facility] Comment on above: Performed By: #### D ATPSA, DATBMP #### [facility] [address] [place] [address] [address] Amish Chowdhury Creatinine [Mass/Vol] 1.21 mg/dL Normal 0.70-1.30 [facility] Comment on above: Performed By: #### D ATPSA, DATBMP #### [facility] [address] [place] [address] [address] Amish Chowdhury EGFR-AF MEXICAN >60 Normal >=60 [facility] Comment on above: Performed By: #### D ATPSA, DATBMP #### [facility] [address] [place] [address] [address] Amish Chowdhury EGFR-NON AF MEXICAN >60 Normal >=60 [facility] Comment on above: Performed By: #### D ATPSA, DATBMP #### [facility] [address] [place] [address] [address] Amish Chowdhury Glucose [Mass/Vol] 107 mg/dL Critically high 74-106 [facility] Comment on above: Performed By: #### D ATPSA, DATBMP #### [facility] [address] [place] [address] [address] Amish Chowdhury HDL NORMAL > or = 60 mg/dl - LO W CARDIOVASCULAR RISK <40 mg/dl - HIGH CARDIOVASCULAR RISK Normal [facility] Comment on above: Performed By: #### D ATPSA, DATBMP #### [facility] [address] [place] [address] [address] Amish Chowdhury LDL CALC NORMAL SEE BELOW Normal [facility] Comment on above: Result Comment: <100 mg/dl OPTIMAL 100 - 129 mg/dl NEAR OR ABOVE OPTIMAL 130 - 159 mg/dl BORDERLINE HIGH 160 - 189 mg/dl HIGH >190 mg/dl VERY HIGH Performed By: #### D ATPSA, DATBMP #### [facility] [address] [place] [address] [address] Amish Chowdhury Potassium [Moles/Vol] 3.8 mmol/L Normal 3.5-5.1 [facility] Comment on above: Performed By: #### D ATPSA, DATBMP #### [facility] [address] [place] [address] [address] Amish Chowdhury Sodium [Moles/Vol] 137 mmol/L Normal 136-145 [facility] Comment on above: Performed By: #### D ATPSA, DATBMP #### [facility] [address] [place] [address] [address] Amish Chowdhury Triglyceride [Mass/Vol] 235 mg/dL Critically high <=150 [facility] Comment on above: Performed By: #### D ATPSA, DATBMP #### [facility] [address] [place] [address] [address] Amish Chowdhury Urea nitrogen [Mass/Vol] 11.0 mg/dL Normal 7.0-18.0 [facility] Comment on above: Performed By: #### D ATPSA, DATBMP #### [facility] [address] [place] [address] [address] Amish Chowdhury Urea nitrogen/Creatinine [Mass ratio] 9.1 mg/mg Normal [facility] Comment on above: Performed By: #### D ATPSA, DATBMP #### [facility] [address] [place] [address] [address] Amish Chowdhury VLDL CALC 47.0 mg/dL Normal [facility] Comment on above: Performed By: #### D ATPSA, DATBMP #### [facility] [address] [place] [address] [address] Amish Chowdhury GLYCOHEMOGLOBIN A1Con 2021 ADA RECOMMENDATION SEE BELOW Normal [facility] Comment on above: Result Comment: ADA RECOMMENDED LIMIT 4.0 - 6.0 ADA THERAPEUTIC TARGET < 7.0 ACTION SUGGESTED > 7.0 Performed By: #### D ATA1C #### [facility] [address] [place] [address] [address] Amish Chowdhury Glucose [Mass/Vol] 111 mg/dL Normal [facility] Comment on above: Performed By: #### D ATA1C #### [facility] [address] [place] [address] [address] Amish Chowdhury HbA1c (Bld) [Mass fraction] 5.5 % Normal 4.5-6.2 [facility] Comment on above: Performed By: #### D ATA1C #### [facility] [address] [place] [address] [address] Amish Chowdhury Office Visit (Cardiology)on 03-25-2022 Follow-up visit Diagnoses/Problems Assessed Persistent atrial fibrillation (427.31) (I48.19) Anticoagulated (V58.61) (Z79.01) Essential hypertension, benign (401.1) (I10) Morbid obesity with BMI of 40.0-44.9, adult (278.01,V85.41) (E66.01,Z68.41) Never a smoker Obstructive sleep apnea syndrome (327.23) (G47.33) Orders Essential hypertension, benign Start: dilTIAZem HCl ER Coated Beads 360 MG Oral Capsule Extended Release 24 Hour; TAKE 1 CAPSULE Daily Morbid obesity with BMI of 40.0-44.9, adult Healthy Weight Tips; Status:Complete - Retrospective Authorization; Done: 25Mar2022 Some eating tips that can help you lose weight.; Status:Complete - Retrospective Authorization; Done: 25Mar2022 Persistent atrial fibrillation IO EKG Electrocardiogram- 12 Lead; Status:Complete; Done: 25Mar2022 SocHx: Never a smoker Tobacco Use Screening; Status:Complete; Done: 25Mar2022 Tobacco Use Screening; Status:Complete; Done: 25Mar2022 Unlinked Stop: dilTIAZem HCl ER Coated Beads 240 MG Oral Capsule Extended Release 24 Hour Patient Instructions By signing my name below, I, Lamar Kearney LPN. ,Scribe, attest that this documentation has been prepared under the direction and in the presence of Dr. Jaswinder Bo MD. Please bring all medicines, vitamins, and herbal supplements with you when you come to the office. Prescriptions will not be filled unless you are compliant with your follow up appointments or have a follow up appointment scheduled as per instruction of your physician. Refills should be requested at the time of your visit Follow up in 6 months Chief Complaint [facility] POST ELVA/DCC. BJ ADAME is being seen for follow-up of a hospitalization for. History of Present Illness Patient is here for follow-up continue management he was recently in the hospital for persistent atrial fibrillation which was very difficult to controlled. Ultimately he underwent ELVA guided cardioversion which was successful. Since his discharge patient reported that he is feeling well. He denies complaint chest pain, palpitation, lightheadedness, dizziness or syncope. He described functional class I. He remained in normal sinus rhythm. He does have a home heart rate monitoring device that he use and his heart rate has been controlled. He report his blood pressure has been running slightly on the higher range. He does have a history of sleep apnea which has been treated and he is on CPAP. Assessment 1. Persistent atrial fibrillation status post ELVA guided cardioversion remain in normal sinus rhythm. Patient does have home heart rate monitoring device. He made the criteria for anticoagulation 2. Hypertension controlled but according to to him running slightly on the higher range 3. Long-term anticoagulation tolerating that well without any side effect 4. Sleep apnea compliant with his CPAP 5. Morbid obesity Plan 1. I recommend the patient to increase his diltiazem to 360 to optimize blood pressure control 2. I counseled him regarding losing weight, exercise and dietary modification and I told him his goal should be less than 350 by the time I see him next time 3. I encouraged him to be compliant with his CPAP machine 4. The natural history of atrial fibrillation discussed with patient at length the possible recurrence and need for ablation and or antiarrhythmic discussed with the patient 5. Follow-up in 6 months or earlier if the need arise Current Meds Medication NameInstruction dilTIAZem HCl ER Coated Beads 240 MG Oral Capsule Extended Release 24 HourTAKE 1 CAPSULE BY MOUTH ONCE DAILY hydroCHLOROthiazide 25 MG Oral TabletTAKE 1 TABLET DAILY. Valsartan 320 MG Oral TabletTAKE 1 TABLET ONCE DAILY. Xarelto 20 MG Oral TabletTAKE 1 TABLET BY MOUTH ONCE DAILY WITH SUPPER Allergies Medication No Known Drug Allergies Recorded By: Megan Blair; 03/25/2022 1:07:58 PM Social History Problems Denied: History of Caffeine use Never a smoker No alcohol use No illicit drug use Review of Systems Constitutional: not feeling tired. Cardiovascular: no intermittent leg claudication and as noted in HPI. Respiratory: no cough and no shortness of breath. Gastrointestinal: no change in bowel habits and no blood in stools. Integumentary: no skin rashes. Neurological: no seizures and no frequent falls. All other systems have been reviewed and are negative for complaint. Vitals Vital Signs Recorded: 25Mar2022 01:48PMRecorded: 25Mar2022 01:15PM [id number], LUE, Sitting Ssolbpifh1593, LUE, Sitting Heart Rate79, Apical Height6 ft 4 in Uglckf197 lb BMI Cgcekckcyl87.31 kg/m2 BSA Calculated2.86 Tobacco Useb) No PHQ-2 #1. Over the last 2 weeks have you felt down, depressed or hopeless? (If yes, answer PHQ-9 below)No PHQ-2 #2. Over the last 2 weeks have you felt little interest or pleasure in doing things? (If yes, answer PHQ-9 below)No EKG done in office today. Physical Exam Constitutional: alert and in no (more content not included)... Normal [employer] Tobacco Screening.on 022 Adult depression screening assessment No [facility] 250 DO Work Phone: Tobacco use status [facility] b) No [facility] 250 DO Work Phone: Basic Metabolic Panelon 05-0 Calcium [Mass/Vol] 8.9 mg/dL Normal 8.2-10.2 [facility] Comment on above: Performed By: #### H S TROP, PT, PTT, CBC, CMP, MG, CK, CKMB #### [address] Chloride [Moles/Vol] 101 mmol/L Normal 95-114 [facility] [place] Comment on above: Performed By: #### H S TROP, PT, PTT, CBC, CMP, MG, CK, CKMB #### [address] CO2 [Moles/Vol] 29.1 mmol/L Normal 22.0-30.0 [facility] Comment on above: Performed By: #### H S TROP, PT, PTT, CBC, CMP, MG, CK, CKMB #### [address] Creatinine [Mass/Vol] 1.25 mg/dL Normal 0.64-1.27 [facility] Comment on above: Performed By: #### H S TROP, PT, PTT, CBC, CMP, MG, CK, CKMB #### [address] Creatinine Clr Calc Pharmacy 115.57 [facility] Comment on above: Result Comment: PERF ORMED BY: [place] [address] PATHOLOGIST [employer]PERATIONS PLANNER TATYANA LUCIO M.D. Performed By: #### H S TROP, PT, PTT, CBC, CMP, MG, CK, CKMB #### [address] Estimated GFR ( [place] > 60 Normal [facility] Comment on above: Result Comment: GFR estimated reference range: According to KDOQI guidelines, <60 ml/min/1.73m2 is sufficient to diagnose a patient with chronic kidney disease. Performed By: #### H S TROP, PT, PTT, CBC, CMP, MG, CK, CKMB #### [facility] [address] Estimated GFR (Non- Am > 60 Normal [facility] Comment on above: Performed By: #### H S TROP, PT, PTT, CBC, CMP, MG, CK, CKMB #### [facility] [address] Glucose [Mass/Vol] 104 mg/dL High 70-100 [facility] Comment on above: Result Comment: [facility] Glucose Reference Range is dependent on time and content of last meal. Glucose of more than 200 mg/dL in a nonstressed, ambulatory subject supports the diagnosis of Diabetes Mellitus. ADA recommended reference range Performed By: #### H S TROP, PT, PTT, CBC, CMP, MG, CK, CKMB #### [address] Potassium [Moles/Vol] 4.0 mmol/L Normal 3.5-5.1 [facility] Comment on above: Performed By: #### H S TROP, PT, PTT, CBC, CMP, MG, CK, CKMB #### [facility] [address] Sodium [Moles/Vol] 139 mmol/L Normal 136-146 [facility] Comment on above: Performed By: #### H S TROP, PT, PTT, CBC, CMP, MG, CK, CKMB #### [address] Urea nitrogen [Mass/Vol] 13 mg/dL Normal 9-23 [facility] Comment on above: Performed By: #### H S TROP, PT, PTT, CBC, CMP, MG, CK, CKMB #### [address] ECG 12 lead ECGon 02-18-2022 ECG 12 lead ECG [facility] [place] [address] [place] [address] Electrocardiograph Report Signed Patient: Bj Adame MR#: [id number] 4 : 1970 Acct:[id number] Age/Sex: 51 / M ADM Date: 02/15/22 Loc: 4P Room: [address] [place] [address] Type: DIS IN Attending Dr: Jane Sosa MD Ordering Provider: Consuelo Aguirre DO Date of Service: 02/18/2202/06/700 ECG/ECG 12 lead ECG: Pre-cardioversion rhythm assessment Copies to: Test Reason : Blood Pressure : / mmHG Vent. Rate : 077 BPM Atrial Rate : 312 BPM P-R Int : 000 ms QRS Dur : 108 ms QT Int : 352 ms P-R-T Axes : 260 031 016 degrees QTc Int : 398 ms Atrial flutter with variable AV block Abnormal ECG When compared with ECG of 18-FEB-2022 07:27, (Unconfirmed) No significant change was found Confirmed by DEIDRE XIAO FACC, MIKEY ([id number]) on 02/18/2022 8:45:00 AM Referred By: Jaswinder Bo Electronically Signed By:MIKEY JIANG MD FACC Transcribed By: MUS Signed By Mikey Jiang MD, FACC 02/18/22 0845 Normal [facility] ECG post procedureon 022 ECG post procedure [facility] [place] [address] Electrocardiograph Report Signed Patient: Bj Adame MR#: [id number] 4 : 1970 Acct:[id number] Age/Sex: 51 / M ADM Date: 02/15/22 Loc: 4 Room: [address] [place] [address] Type: DIS IN Attending Dr: Jane Sosa MD Ordering Provider: Consuelo Aguirre DO Date of Service: 02/18/22/ ECG/ECG post procedure: post cardioversion Copies to: Test Reason : Blood Pressure : 151/084 mmHG Vent. Rate : 071 BPM Atrial Rate : 071 BPM P-R Int : 200 ms QRS Dur : 110 ms QT Int : 354 ms P-R-T Axes : 056 040 037 degrees QTc Int : 384 ms Normal sinus rhythm Incomplete right bundle branch block Borderline ECG When compared with ECG of 18-FEB-2022 07:27, Sinus rhythm has replaced Atrial flutter Confirmed by DEIDRE XIAO [facility], MIKEY ([id number]) on 02/19/2022 9:26:28 AM Referred By: Jaswinder Bo Electronically Signed By:MIKEY JIANG MD [facility] Transcribed By: MUS Signed By Mikey Jiang MD, [facility] 02/19/22 0926 [facility] echo transesophageal ELVA on 02-18-2022 [facility] echo transesophageal ELVA [facility] [place] [address] Echocardiogram Signed Patient: Bj Adame MR#: [id number] 4 : 1970 Acct:[id number] Age/Sex: 51 / M ADM Date: 02/15/22 Loc: Room: [address] [place] [address] Type: DIS IN Attending Dr: Jane Sosa MD Ordering Provider: Jane Sosa MD Date of Service: 02/18/22/ [facility] echo transesophageal ELVA: PRECARDIOVERSION Copies to: MD Jane Caicedo MD HR: 116 Reason For Study: PRECARDIOVERSION History: HTN, ZORAN, Obesity Interpretation Summary The left ventricular size, thickness and function are normal Ejection Fraction = 55-60%. The left atrium appears mildly dilated. There is mild mitral regurgitation. There is trace tricuspid regurgitation. The aortic root is 4.8 cm Mild aortic root dilatation. No evidence of intracardiac thrombus. cardioversion can be performed safely Procdure: A two-dimensional transesophageal echocardiogram with color flow and Doppler was performed. A two-dimensional transesophageal echocardiogram with color flow and Doppler was performed. Informed consent for Transesophageal Echocardiogram was obtained prior to the procedure. The patient was brought to the procedure room in a fasting state. An intravenous line was placed. A topical anesthetic agent was used for oropharangeal anesthesia. A bite block was inserted. A total of 100 mg of Propafol was given. A total of 2 mg of Versed was given. A multifrequency, multiplane transesopheageal echocardiographic endoscope was inserted and manipulated in the standard fashion to achieve multiplane views. The probe was passed without difficulty. The usual views were obtained; basal, mid-esophageal, transgastric and aortic views. The patient's vital signs including blood pressure, heart rate, pulse oximetry and cardiac rhythm were monitored throughout the procedure and remained stable. Resting heart rate is 112 bpm. Resting blood pressure is 145/78 mmHg. A multifrequency, multiplane transesopheageal echocardiographic endoscope was inserted and manipulated in the standard fashion to achieve multiplane views. The transesophageal probe was passed without difficulty. The usual views were obtained; basal, mid-esophageal, transgastric and aortic views. The patient's vital signs, including blood pressure, heart rate, pulse oximetry and cardiac rhythm were monitored throughout the procedure and remained stable. Contrast injection with agitated saline was performed. The patient tolerates the procedure well. No complication. Patient was given total of 7.5 mg of metoprolol to control his atrial flutter with rapid ventricular rate. Left Ventricle: The left ventricular size, thickness and function are normal. Ejection Fraction = 55-60%. Left Atrium: The left atrium appears mildly dilated. Left atrial appendage velocities are normal. No thrombus or spontaneous echo contrast seen. Atrial septum appears to be intact and there is no evidence of flow across the atrial septum either by colorflow Doppler or by agitated saline. Right Atrium: The right atrium appears normal in size. Right Ventricle: The right ventricular size, thickness and function are normal. Aortic Valve: The aortic valve is normal in structure and function. Mitral Valve: The mitral valve is normal. There is mild mitral regurgitation. Tricuspid Valve: The tricuspid valve is normal. There is trace tricuspid regurgitation. Pulmonic Valve: The pulmonic valve is not well seen, but is grossly normal. Arteries: The aortic root is 4.8 cm. Mild aortic root dilatation. Venous: The inferior vena cava is normal in size, with a normal collapsibility index. Effusions: No pericardial effusion seen. There is no pleural effusion. No evidence of intracardiac thrombus. cardioversion can be performed safely. MMode/2D Measurements Calculations Ao root diam: 4.6 cm Ao root area: 16.9 cm2 Transcribed By: TAHMINA Performed At: 02/18/22 1423 Signed By: Jaswinder Bo MD 02/18/22 1510 [facility] Basic Metabolic Panelon 050 Calcium [Mass/Vol] 8.7 mg/dL Normal 8.2-10.2 [facility] Comment on above: Performed By: #### H S TROP, PT, PTT, CBC, CMP, MG, CK, CKMB #### [facility] [address] [place] [address] Chloride [Moles/Vol] 103 mmol/L Normal 95-114 [facility] Comment on above: Performed By: #### H S TROP, PT, PTT, CBC, CMP, MG, CK, CKMB #### [facility] [address] [place] [address] CO2 [Moles/Vol] 27.7 mmol/L Normal 22.0-30.0 [facility] Comment on above: Performed By: #### H S TROP, PT, PTT, CBC, CMP, MG, CK, CKMB #### [facility] [address] [place] [address] Creatinine [Mass/Vol] 1.30 mg/dL High 0.64-1.27 [facility] Comment on above: Performed By: #### H S TROP, PT, PTT, CBC, CMP, MG, CK, CKMB #### [facility] [address] [place] [address] [place] Creatinine Clr Calc Pharmacy 112.03 [facility] Comment on above: Performed By: #### H S TROP, PT, PTT, CBC, CMP, MG, CK, CKMB #### [facility] [address] [place] [address] Estimated GFR ( Polina > 60 [facility] Comment on above: Result Comment: GFR estimated reference range: According to KDOQI guidelines, <60 ml/min/1.73m2 is sufficient to diagnose a patient with chronic kidney disease. Performed By: #### H S TROP, PT, PTT, CBC, CMP, MG, CK, CKMB #### [facility] [address] Estimated GFR (Non- Am 58 Normal [facility] Comment on above: Performed By: #### H S TROP, PT, PTT, CBC, CMP, MG, CK, CKMB #### [facility] [address] Glucose [Mass/Vol] 109 mg/dL High 70-100 [facility] Comment on above: Result Comment: [facility] Glucose Reference Range is dependent on time and content of last meal. Glucose of more than 200 mg/dL in a nonstressed, ambulatory subject supports the diagnosis of Diabetes Mellitus. ADA recommended reference range Performed By: #### H S TROP, PT, PTT, CBC, CMP, MG, CK, CKMB #### [address] Potassium [Moles/Vol] 4.3 mmol/L Normal 3.5-5.1 [facility] Comment on above: Performed By: #### H S TROP, PT, PTT, CBC, CMP, MG, CK, CKMB #### [address] Sodium [Moles/Vol] 138 mmol/L Normal 136-146 [facility] Comment on above: Performed By: #### H S TROP, PT, PTT, CBC, CMP, MG, CK, CKMB #### [address] Urea nitrogen [Mass/Vol] 13 mg/dL Normal 9-23 [facility] Comment on above: Performed By: #### H S TROP, PT, PTT, CBC, CMP, MG, CK, CKMB #### [address] Complete Blood Count Auto Di ffon 02-16-2022 Basophils (Bld) [#/Vol] 0.1 10*3/uL Normal 0.0-0.2 [facility] Comment on above: Result Comment: PERF ORMED BY: [place] [address] PATHOLOGIST OPERATIONS PLANNER TATYANA LUCIO M.D. Performed By: #### C BC #### [address] Basophils/100 WBC (Bld) 1.1 % Normal . [facility] Comment on above: Performed By: #### C BC #### [address] Eosinophils (Bld) [#/Vol] 0.1 10*3/uL Normal 0.0-0.45 [facility] Comment on above: Performed By: #### C BC #### [address] Eosinophils/100 WBC (Bld) 1.2 % Normal . [facility] Comment on above: Performed By: #### C BC #### [address] Erythrocyte distribution width (RBC) [Ratio] 14.0 % Normal 12.0-14.8 [facility] Comment on above: Performed By: #### C BC #### [address] Hematocrit (Bld) [Volume fraction] 47.7 % Normal 38.8-50.0 [facility] Comment on above: Performed By: #### C BC #### [address] Hemoglobin (Bld) [Mass/Vol] 16.5 g/dL Normal 13.0-17.0 [facility] Comment on above: Performed By: #### C BC #### [address] Lymphocytes (Bld) [#/Vol] 2.0 10*3/uL Normal 1.00-4.8 [facility] Comment on above: Performed By: #### C BC #### [address] Lymphocytes/100 WBC (Bld) 24.5 % Normal . [facility] Comment on above: Performed By: #### C BC #### [facility] [address] MCH (RBC) [Entitic mass] 29.7 pg Normal 27.5-35.2 [facility] Comment on above: Performed By: #### C BC #### [facility] [address] MCV (RBC) [Entitic vol] 86.1 fL Normal 83.5-101 [facility] Comment on above: Performed By: #### C BC #### [facility] [address] Mean Corpuscular HGB Conc 34.5 g/dL Normal 32.5-35.6 [facility] Comment on above: Performed By: #### C BC #### [address] Monocytes (Bld) [#/Vol] 0.5 10*3/uL Normal 0.0-0.8 [facility] Comment on above: Performed By: #### C BC #### [address] Monocytes/100 WBC (Bld) 5.5 % Normal . [facility] Comment on above: Performed By: #### C BC #### [address] Neutrophils (Bld) [#/Vol] 5.6 10*3/uL Normal 1.8-7.7 [facility] Comment on above: Performed By: #### C BC #### [facility] [address] Neutrophils/100 WBC (Bld) 67.7 % Normal . [facility] Comment on above: Performed By: #### C BC #### [address] Nucleated RBC/100 WBC (Bld) [Ratio] 0.0 % Normal 0-0.5 [facility] Comment on above: Performed By: #### C BC #### [facility] [address] Platelet mean volume (Bld) [Entitic vol] 7.3 fL Normal 6.6-10.1 [facility] Comment on above: Performed By: #### C BC #### [facility] [address] Platelets (Bld) [#/Vol] 225 10*3/uL Normal 150-450 [facility] Comment on above: Performed By: #### C BC #### [facility] [address] RBC (Bld) [#/Vol] 5.54 10*6/uL Normal 3.90-5.60 [facility] Comment on above: Performed By: #### C BC #### [facility] [address] WBC (Bld) [#/Vol] 8.2 10*3/uL Normal 4.5-11.0 [facility] Comment on above: Performed By: #### C BC #### [facility] [address] ECG 12 lead ECGon 02-16-2022 ECG 12 lead ECG [facility] [place] [address] [place] [address] Electrocardiograph Report Signed Patient: Bj Adame MR#: [id number] 4 : 1970 Acct:[id number] Age/Sex: 51 / M ADM Date: 02/15/22 Loc: Room: [address] [place] [address] Type: DIS IN Attending Dr: Jane Sosa MD Ordering Provider: Jane Sosa MD Date of Service: 02/16/2212/09/499 ECG/ECG 12 lead ECG: Arrhythmia/Palpitation s Copies to: Test Reason : Blood Pressure : / mmHG Vent. Rate : 080 BPM Atrial Rate : 312 BPM P-R Int : 000 ms QRS Dur : 110 ms QT Int : 356 ms P-R-T Axes : -85 052 067 degrees QTc Int : 410 ms Atrial flutter with variable AV block Abnormal ECG When compared with ECG of 15-FEB-2022 19:32, (Unconfirmed) No significant change was found Confirmed by [facility]ID[facility] ([id number][facility] on 02/16/2022 10:31:33 AM Referred By: Electronically Signed By:MIKEY JIANG MD [facility] Transcribed By: MUS Signed By Mikey Jiang MD, [facility] 02/16/22 1031 [facility] echo transthoracicon [facility] echo transthoracic [facility] [place] [address] [place] [address] Echocardiogram Signed Patient: Bj Adame MR#: [id number] 4 : 1970 Acct:[id number] Age/Sex: 51 / M ADM Date: 02/15/22 Loc: Room: [address] [place] [address] Type: DIS IN Attending Dr: Jane Sosa MD Ordering Provider: Jane Sosa MD Date of Service: 02/15/2211/08/1999 [facility] echo transthoracic: Arrhythmia/Palpitation s Copies to: Mikey Jiang MD, [facility] Jane Sosa MD BSA: 2.9 m2 BP: 143/86 mmHg HR: 79 Reason For Study: Arrhythmia/Palpitation s History: HTN, ZORAN, Obesity Interpretation Summary The left ventricular size, thickness and function are normal Ejection Fraction = 55-60%. The left atrium appears mildly dilated. The aortic root is 4.9 cm Moderate aortic root dilatation. The patient was in atrial fibrillation through out the study. Procedure/Quality: A two-dimensional transthoracic echocardiogram with color flow, Doppler and injection of contrast agent Definity was performed. The study was technically suboptimal in quality due to poor acoustic windows . Left Ventricle: The left ventricular size, thickness and function are normal. Ejection Fraction = 55-60%. Left Atrium: The left atrium appears mildly dilated. The atrial septum appears normal. Right Atrium: The right atrium appears normal in size. Right Ventricle: The right ventricular size, thickness and function are normal. Aortic Valve: The aortic valve is not well visualized. Mitral Valve: The mitral valve is not well visualized. Tricuspid Valve: The tricuspid valve is normal. Pulmonic Valve: The pulmonic valve is not well visualized. Arteries: Moderate aortic root dilatation. The aortic root is 4.9 cm. Pericardium/Pleura: No pericardial effusion seen. There is no pleural effusion. IVC/Hepatic Viens: Mildly dilated inferior vena cava. Miscellaneous: No thrombus, vegetation or mass is seen. The patient was in atrial fibrillation through out the study. Measurements with Normals IVSd: 1.1 cm (0.7-1.1 cm)LVIDd: 5.0 cm (3.7-5.4 cm) LVPWd: 1.1 cm (0.7-1.1 cm)LVIDs: 3.3 cm (2.3-3.6 cm) LA dimension: 4.0 cm (2.3-4.0 cm)Ao root diam: 4.6 cm(2.0-3.6 cm) asc Aorta Diam: 4.9 cm(2.1-3.4cm) Doppler with Normals LV V1 max: 103.7 cm/sec(0.7-1.7m/s)MV E max clive: 84.8 cm/sec(0.8-1.3m/s) MMode/2D Measurements Calculations TAPSE: 2.3 cm FS: 35.0 % Ao root area: LVOT diam: 2.9 cm RV S Clive: EDV(Teich): 16.7 cm2 LVOT area: 6.5 cm2 14.9 cm/sec 120.1 ml ESV(Teich): 43.2 ml EF(Teich): 64.1 % __ LVLd ap4: 9.8 cm SV(MOD-sp4): LAV(MOD-sp4): LA A2 area: 19.0 cm2 EDV(MOD-sp4): 129.0 ml 44.6 ml 251.0 ml LAV(MOD-sp2): LA A4 area: 17.9 cm2 LVLs ap4: 9.6 cm 53.4 ml LA length (vol): ESV(MOD-sp4): 5.6 cm 122.0 ml LA vol: 52.0 ml EF(MOD-sp4): 51.4 % LA vol index: 18.1 ml/m2 Doppler Measurements Calculations MV dec time: MV max PG: MV dec slope: Ao V2 max: 0.11 sec 27.0 mmHg 109.9 cm/sec 777.2 cm/sec2 Ao max P.8 mmHg Ao mean P.8 mmHg Ao V2 mean: 81.3 cm/sec Ao V2 VTI: 16.3 cm DONIS(I,D): 6.4 cm2 DONIS(V,D): 6.1 cm2 __ LV V1 max PG: MR max clive: RAP systole: 4.3 mmHg 259.3 cm/sec 15.0 mmHg LV V1 mean PG: MR max P.9 mmHg 26.9 mmHg LV V1 mean: 80.6 cm/sec LV V1 VTI: 16.2 cm Transcribed By: SCV Performed At: 02/16/22 1014 Signed By: Mikey Jiang MD, [facility] 02/16/22 1506 Normal [facility] Lipid Panelon 02-16-2022 Cholesterol [Mass/Vol] 167 mg/dL Normal 140-200 [facility] Comment on above: Result Comment: Chol less than 200 mg/dl low risk Chol 201-239 mg/dl borderline risk Chol 240 mg/dl and greater high risk Performed By: #### H S TROP, PT, PTT, CBC, CMP, MG, CK, CKMB #### [facility] [address] [place] [address] [place] Cholesterol in HDL [Mass/Vol] 28 mg/dL Low 29-71 [facility] Comment on above: Result Comment: HDL CHOL ATP-III CLASSIFICATION Cardiovascular Risk HDL > or equal to 60 mg/dL LOW HDL < 40 mg/dL HIGH Performed By: #### H S TROP, PT, PTT, CBC, CMP, MG, CK, CKMB #### [facility] [address] [place] [address] [place] Cholesterol.total/Ch olesterol in HDL [Mass ratio] 6.0 {ratio} Normal <5.0 [facility] Comment on above: Result Comment: PERF ORMED BY: [place] [address] PATHOLOGIST OPERATIONS PLANNER TATYANA LUCIO M.D. Performed By: #### H S TROP, PT, PTT, CBC, CMP, MG, CK, CKMB #### [facility] [address] LDL Cholesterol,Calculat ed 93 mg/dL Normal 0-100 [facility] Comment on above: Result Comment: LDL ATP III CLASSIFICATION LDL less than 100 mg/dL Optimal LDL 100-129 mg/dL Near or above optimal LDL 130-159 mg/dL Borderline high LDL 160-189 mg/dL High LDL greater than 189 mg/dL Very high Performed By: #### H S TROP, PT, PTT, CBC, CMP, MG, CK, CKMB #### [facility] [address] [place] [address] Triglyceride w/Reflex 228 mg/dL High 35-149 [facility] Comment on above: Result Comment: TRIG ATP III CLASSIFICATION TRIG less than 150 mg/dL Normal TRIG 150-199 mg/dL Borderline high TRIG 200-500 mg/dL High TRIG greater than 500 mg/dL Very high Standard traceable to the Center for Disease Conrtrol and Prevention (CDC) test method. Performed By: #### H S TROP, PT, PTT, CBC, CMP, MG, CK, CKMB #### [facility] [address] [place] [address] VLDL CHOLESTEROL 45 mg/dL Normal [facility] Comment on above: Performed By: #### H S TROP, PT, PTT, CBC, CMP, MG, CK, CKMB #### [facility] [address] B-Type Natriuretic Peptideon 02-15-2022 Natriuretic peptide B (Bld) [Mass/Vol] 64.0 pg/mL Normal 5-100 [facility] Comment on above: Order Comment: Comme nt add Result Comment: PERF ORMED BY: [place] [id number] PATHOLOGIST OPERATIONS PLANNER TATYANA LUCIO M.D. Performed By: #### B PULLEY MAN #### [address] COVID-19 Antigenon 2 COVID-19 Antigen Healthcare Worker?: N Reference Range: Negative Negative results, from patients with symptom onset beyond five days, should be treated as presumptive and confirmation with a molecular assay, if necessary, for patient management, may be performed. Negative results do not rule out COVID-19 and should not be used as the sole basis for treatment or patient management decisions, including infection control decisions. Negative results should be considered in the context of a patient's recent exposures, history and the presence of clinical signs and symptoms consistent with COVID-19. The Xiao SARS Antigen KIMBERLYN does not differentiate between SARS-CoV and SARS-CoV-2. This test was developed and its performance characteristic determined by [employer] and validated at [facility]. This test has not been FDA cleared or approved. This test has been authorized by FDA under an Emergency Use Authorization (EUA). This test has been validated in accordance with the FDA's Guidance Document (Policy for Diagnostics Testing in Laboratories Certified to Perform High Complexity Testing under CLIA prior to Emergency Use Authorization for Coronavirus Disease-2019 during the Public Health Emergency) issued on January 18, 2020. This test is only authorized for the duration of time the declaration that circumstances exist justifying the authorization of the emergency use of in vitro diagnostic tests for detection of SARS-CoV-2 virus and/or diagnosis of COVID-19 infection under section 564(b)(1) of the Act, 21 U.S.C. 360bbb-3(b)(1), unless the authorization is terminated or revoked sooner. SARS-CoV+SARS-CoV-2 (COVID-19) Ag [Presence] in Respiratory specimen by Rapid immunoassay Negative for SARS Antigen by KIMBERLYN PERFORMED BY: [place] [id number] PATHOLOGIST OPERATIONS PLANNER TATYANA LUCIO M.D. [facility] Comment on above: Performed By: #### H S TROP, PT, PTT, CBC, CMP, MG, CK, CKMB #### [facility] [address] [place] [id number] [facility] COVID-19 FRon 02-15-2022 SARS-CoV-2 (COVID-19) RNA CLARY+probe Ql (Unsp spec) Negative Normal Negative [facility] Comment on above: Order Comment: Healt hcare Worker?: N Result Comment: Testing for SARS-CoV-2 by RT-PCR This test was developed and its performance characteristics determined by [employer] and validated at the [facility]. This test has not been FDA cleared or approved. This test has been authorized by FDA under an Emergency Use Authorization (EUA). This test has been validated in accordance with the FDA's Guidance Document (Policy for Diagnostics Testing in Laboratories Certified to Perform High Complexity Testing under CLIA prior to Emergency Use Authorization for Coronavirus Disease-2019 during the Public Health Emergency) issued on January 18, 2020. This test is only authorized for the duration of time the declaration that circumstances exist justifying the authorization of the emergency use of in vitro diagnostic tests for detection of SARS-CoV-2 virus and/or diagnosis of COVID-19 infection under section 564(b)(1) of the Act, 21 U.S.C. 360bbb-3(b)(1), unless the authorization is terminated or revoked sooner. PERFORMED BY: [place] [address] PATHOLOGIST OPERATIONS PLANNER TATYANA LUCIO M.D. Performed By: #### H S TROP, PT, PTT, CBC, CMP, MG, CK, CKMB #### [place] [id number] [facility] Complete Blood Count Auto Di ffon 02-15-2022 Basophils (Bld) [#/Vol] 0.1 10*3/uL Normal 0.0-0.2 [facility] Comment on above: Result Comment: PERF ORMED BY: [place] [address] PATHOLOGIST OPERATIONS PLANNER TATYANA LUCIO M.D. Performed By: #### H S TROP, PT, PTT, CBC, CMP, MG, CK, CKMB #### [address] Basophils/100 WBC (Bld) 0.8 % Normal . [facility] Comment on above: Performed By: #### H S TROP, PT, PTT, CBC, CMP, MG, CK, CKMB #### [address] Eosinophils (Bld) [#/Vol] 0.1 10*3/uL Normal 0.0-0.45 [facility] Comment on above: Performed By: #### H S TROP, PT, PTT, CBC, CMP, MG, CK, CKMB #### [address] Eosinophils/100 WBC (Bld) 0.7 % Normal . [facility] Comment on above: Performed By: #### H S TROP, PT, PTT, CBC, CMP, MG, CK, CKMB #### [address] Erythrocyte distribution width (RBC) [Ratio] 13.7 % Normal 12.0-14.8 [facility] Comment on above: Performed By: #### H S TROP, PT, PTT, CBC, CMP, MG, CK, CKMB #### [address] Hematocrit (Bld) [Volume fraction] 51.8 % High 38.8-50.0 [facility] Comment on above: Performed By: #### H S TROP, PT, PTT, CBC, CMP, MG, CK, CKMB #### [address] Hemoglobin (Bld) [Mass/Vol] 17.9 g/dL High 13.0-17.0 [facility] Comment on above: Performed By: #### H S TROP, PT, PTT, CBC, CMP, MG, CK, CKMB #### [address] Lymphocytes (Bld) [#/Vol] 3.2 10*3/uL Normal 1.00-4.8 [facility] Comment on above: Performed By: #### H S TROP, PT, PTT, CBC, CMP, MG, CK, CKMB #### [address] Lymphocytes/100 WBC (Bld) 34.3 % Normal . [facility] Comment on above: Performed By: #### H S TROP, PT, PTT, CBC, CMP, MG, CK, CKMB #### [address] MCH (RBC) [Entitic mass] 29.9 pg Normal 27.5-35.2 [facility] Comment on above: Performed By: #### H S TROP, PT, PTT, CBC, CMP, MG, CK, CKMB #### [address] MCV (RBC) [Entitic vol] 86.7 fL Normal 83.5-101 [facility] Comment on above: Performed By: #### H S TROP, PT, PTT, CBC, CMP, MG, CK, CKMB #### [address] Mean Corpuscular HGB Conc 34.5 g/dL Normal 32.5-35.6 [facility] Comment on above: Performed By: #### H S TROP, PT, PTT, CBC, CMP, MG, CK, CKMB #### [address] Monocytes (Bld) [#/Vol] 0.4 10*3/uL Normal 0.0-0.8 [facility] Comment on above: Performed By: #### H S TROP, PT, PTT, CBC, CMP, MG, CK, CKMB #### [address] Monocytes/100 WBC (Bld) 4.7 % Normal . [facility] Comment on above: Performed By: #### H S TROP, PT, PTT, CBC, CMP, MG, CK, CKMB #### [place] [id number] [place] Neutrophils (Bld) [#/Vol] 5.6 10*3/uL Normal 1.8-7.7 [facility] Comment on above: Performed By: #### H S TROP, PT, PTT, CBC, CMP, MG, CK, CKMB #### [facility] [address] Neutrophils/100 WBC (Bld) 59.5 % Normal . [facility] Comment on above: Performed By: #### H S TROP, PT, PTT, CBC, CMP, MG, CK, CKMB #### [facility] [address] Nucleated RBC/100 WBC (Bld) [Ratio] 0.5 % Normal 0-0.5 [facility] Comment on above: Performed By: #### H S TROP, PT, PTT, CBC, CMP, MG, CK, CKMB #### [address] Platelet mean volume (Bld) [Entitic vol] 7.6 fL Normal 6.6-10.1 [facility] Comment on above: Performed By: #### H S TROP, PT, PTT, CBC, CMP, MG, CK, CKMB #### [address] Platelets (Bld) [#/Vol] 278 10*3/uL Normal 150-450 [facility] Comment on above: Performed By: #### H S TROP, PT, PTT, CBC, CMP, MG, CK, CKMB #### [address] RBC (Bld) [#/Vol] 5.97 10*6/uL High 3.90-5.60 [facility] Comment on above: Performed By: #### H S TROP, PT, PTT, CBC, CMP, MG, CK, CKMB #### [address] WBC (Bld) [#/Vol] 9.4 10*3/uL Normal 4.5-11.0 [facility] Comment on above: Performed By: #### H S TROP, PT, PTT, CBC, CMP, MG, CK, CKMB #### [facility] [address] [place] [address] Comprehensive Metabolic Pane erin 02-15-2022 Albumin [Mass/Vol] 3.7 g/dL Normal 3.2-5.5 [facility] Comment on above: Performed By: #### H S TROP, PT, PTT, CBC, CMP, MG, CK, CKMB #### [address] Albumin/Globulin [Mass ratio] 1.1 {ratio} Normal [facility] Comment on above: Performed By: #### H S TROP, PT, PTT, CBC, CMP, MG, CK, CKMB #### [address] ALP [Catalytic activity/Vol] 65 U/L Normal 32-92 [facility] Comment on above: Performed By: #### H S TROP, PT, PTT, CBC, CMP, MG, CK, CKMB #### [address] ALT [Catalytic activity/Vol] 22 U/L Normal 10-60 [facility] Comment on above: Performed By: #### H S TROP, PT, PTT, CBC, CMP, MG, CK, CKMB #### [address] AST [Catalytic activity/Vol] 20 U/L Normal 10-42 [facility] Comment on above: Performed By: #### H S TROP, PT, PTT, CBC, CMP, MG, CK, CKMB #### [address] Bilirubin [Mass/Vol] 0.6 mg/dL Normal 0.3-1.2 [facility] [place] Comment on above: Performed By: #### H S TROP, PT, PTT, CBC, CMP, MG, CK, CKMB #### [address] Calcium [Mass/Vol] 9.1 mg/dL Normal 8.2-10.2 [facility] Comment on above: Performed By: #### H S TROP, PT, PTT, CBC, CMP, MG, CK, CKMB #### [address] Chloride [Moles/Vol] 100 mmol/L Normal 95-114 [facility] [place] Comment on above: Performed By: #### H S TROP, PT, PTT, CBC, CMP, MG, CK, CKMB #### [address] CO2 [Moles/Vol] 27.4 mmol/L Normal 22.0-30.0 [facility] Comment on above: Performed By: #### H S TROP, PT, PTT, CBC, CMP, MG, CK, CKMB #### [address] Creatinine [Mass/Vol] 1.31 mg/dL High 0.64-1.27 [facility] Comment on above: Performed By: #### H S TROP, PT, PTT, CBC, CMP, MG, CK, CKMB #### [place] [address] [place] Creatinine Clr Calc Pharmacy 107.84 [facility] Comment on above: Performed By: #### H S TROP, PT, PTT, CBC, CMP, MG, CK, CKMB #### [address] Estimated GFR ( Polina > 60 [facility] Comment on above: Result Comment: GFR estimated reference range: According to KDOQI guidelines, <60 ml/min/1.73m2 is sufficient to diagnose a patient with chronic kidney disease. Performed By: #### H S TROP, PT, PTT, CBC, CMP, MG, CK, CKMB #### [address] Estimated GFR (Non- Am 57 [facility] Comment on above: Performed By: #### H S TROP, PT, PTT, CBC, CMP, MG, CK, CKMB #### [facility] [address] Globulin (S) [Mass/Vol] 3.3 g/dL Normal [facility] Comment on above: Performed By: #### H S TROP, PT, PTT, CBC, CMP, MG, CK, CKMB #### [facility] [address] Glucose [Mass/Vol] 97 mg/dL Normal 70-100 [facility] Comment on above: Result Comment: [facility] Glucose Reference Range is dependent on time and content of last meal. Glucose of more than 200 mg/dL in a nonstressed, ambulatory subject supports the diagnosis of Diabetes Mellitus. ADA recommended reference range Performed By: #### H S TROP, PT, PTT, CBC, CMP, MG, CK, CKMB #### [address] Potassium [Moles/Vol] 3.7 mmol/L Normal 3.5-5.1 [facility] Comment on above: Performed By: #### H S TROP, PT, PTT, CBC, CMP, MG, CK, CKMB #### [address] Protein [Mass/Vol] 7.0 g/dL Normal 6.1-7.9 [facility] Comment on above: Performed By: #### H S TROP, PT, PTT, CBC, CMP, MG, CK, CKMB #### [address] Sodium [Moles/Vol] 138 mmol/L Normal 136-146 [facility] Comment on above: Performed By: #### H S TROP, PT, PTT, CBC, CMP, MG, CK, CKMB #### [address] Urea nitrogen [Mass/Vol] 15 mg/dL Normal 9-23 [facility] Comment on above: Performed By: #### H S TROP, PT, PTT, CBC, CMP, MG, CK, CKMB #### [address] Creatine Kinaseon 02-15-2022 CK [Catalytic activity/Vol] 98 U/L Normal 22-269 [facility] Comment on above: Performed By: #### H S TROP, PT, PTT, CBC, CMP, MG, CK, CKMB #### [facility] [address] Creatinine Kinase MBon 02-15 CK.MB [Mass/Vol] 2.9 ng/mL Normal 0.6-6.3 [facility] Comment on above: Performed By: #### H S TROP, PT, PTT, CBC, CMP, MG, CK, CKMB #### [facility] [address] CKMB Relative Index 2.9 % High 0.00-2.50 [facility] Comment on above: Performed By: #### H S TROP, PT, PTT, CBC, CMP, MG, CK, CKMB #### [facility] [address] ECG 12 lead ECGon 02-15-2022 ECG 12 lead ECG [facility] [place] [address] [place] [address] Electrocardiograph Report Signed Patient: Bj Adame MR#: [id number] [birth year] : 1970 Acct:[id number] Age/Sex: 51 / M ADM Date: 02/15/22 Loc: Room: [address] [place] [address] Type: DIS IN Attending Dr: Jane Sosa MD Ordering Provider: Iraj Reilly MD Date of Service: 02/15/2211/08/1956 ECG/ECG 12 lead ECG: Arrhythmia/Palpitation s Copies to: Test Reason : Blood Pressure : 114/068 mmHG Vent. Rate : 083 BPM Atrial Rate : 326 BPM P-R Int : 000 ms QRS Dur : 110 ms QT Int : 348 ms P-R-T Axes : -89 012 050 degrees QTc Int : 408 ms Atrial flutter with variable AV block Abnormal ECG When compared with ECG of 15-FEB-2022 17:37, Vent. rate has decreased BY 59 BPM Confirmed by DEIDRE XIAO FACMIKEY ([id number]) on 02/17/2022 9:03:02 AM Referred By: Electronically Signed By:MIKEY JIANG MD [facility] Transcribed By: MUS Signed By Mikey Jiang MD, [facility] 02/17/22 0903 [facility] ECG 12 lead ECG [facility] [place] [address] [place] [address] Electrocardiograph Report Signed Patient: Bj Adame MR#: [id number] 4 : 1970 Acct:[id number] Age/Sex: 51 / M ADM Date: 02/15/22 Loc: Room: [address] [place] [address] Type: DIS IN Attending Dr: Jane Sosa MD Ordering Provider: Iraj Reilly MD Date of Service: 02/15/2211/08/1738 ECG/ECG 12 lead ECG: Arrhythmia/Palpitation s Copies to: Test Reason : Blood Pressure : 144/084 mmHG Vent. Rate : 142 BPM Atrial Rate : 156 BPM P-R Int : 192 ms QRS Dur : 106 ms QT Int : 254 ms P-R-T Axes : 263 011 041 degrees QTc Int : 390 ms Unusual P axis, possible ectopic atrial tachycardia with fusion complexes Inferior infarct , age undetermined Abnormal ECG No previous ECGs available Confirmed by IRAJ REILLY MD ([id number]) on 02/15/2022 7:06:51 PM Referred By: Electronically Signed By:IRAJ REILLY MD Transcribed By: MUS Signed By Iraj Reilly MD 02/15/22 190 [facility] Magnesiumon 02-15-2022 Magnesium [Mass/Vol] 1.9 mg/dL Normal 1.6-2.6 [facility] [place] Comment on above: Result Comment: PERF ORMED BY: [place] [address] PATHOLOGIST OPERATIONS PLANNER TATYANA LUCIO M.D. Performed By: #### H S TROP, PT, PTT, CBC, CMP, MG, CK, CKMB #### [place] [address] [place] Partial Thromboplastin Timeo n 02-15-2022 aPTT Coag (Bld) [Time] 32.6 s Normal 25.1-36.5 [facility] Comment on above: Result Comment: PERF ORMED BY: [place] [address] PATHOLOGIST OPERATIONS PLANNER TATYANA LUCIO M.D. Performed By: #### H S TROP, PT, PTT, CBC, CMP, MG, CK, CKMB #### [address] Prothrombin Time INRon 02-15 INR Coag (PPP) [Relative time] 1.1 {INR} Normal [facility] Comment on above: Result Comment: INR Therapeutic Range A) Pre- and Peroperative OAT started two weeks before surgery. NOT HIP SURGERY: 1.5 - 2.5 HIP SURGERY: 2 - 3 B) Primary and secondary prevention of venous THROMBOSIS: 2 - 3 C) Active venous thrombosis, pulmonary embolism and prevention of recurrent venous thrombosis: 2 - 3 D) Prevention of arterial thromboembolism including patients with mechanical heart valves: 3 - 4.5 Performed By: #### H S TROP, PT, PTT, CBC, CMP, MG, CK, CKMB #### [address] PT Coag (PPP) [Time] 12.2 s Normal 9.0-12.9 [facility] [place] Comment on above: Performed By: #### H S TROP, PT, PTT, CBC, CMP, MG, CK, CKMB #### [address] Xiao Ag Negativeon 02-16-20 Xiao Ag Negative Negative Normal Negative [facility] Comment on above: Result Comment: This is a duplicate Xiao SARS Antigen (KIMBERLYN) result to be used for statistical tracking purpose only. PERFORMED BY: [place] [address] PATHOLOGIST OPERATIONS PLANNER TATYANA LUCIO M.D. Performed By: #### H S TROP, PT, PTT, CBC, CMP, MG, CK, CKMB #### [address] Thyroid Stimulating Hormoneo n 02-15-2022 TSH Qn 1.94 m[IU]/L Normal 0.45-5.33 [facility] Comment on above: Result Comment: PERF ORMED BY: [place] [address] PATHOLOGIST OPERATIONS PLANNER TATYANA LUCIO M.D. Performed By: #### H S TROP, PT, PTT, CBC, CMP, MG, CK, CKMB #### [address] Troponin I High Sensitivityo n 02-15-2022 Troponin I High Sensitivity 13 pg/mL Normal 0-20 [facility] Comment on above: Result Comment: PERF ORMED BY: [place] [address] PATHOLOGIST OPERATIONS PLANNER TATYANA LUCIO M.D. Performed By: #### H S TROP, PT, PTT, CBC, CMP, MG, CK, CKMB #### [address] Troponin I High Sensitivity 10 pg/mL Normal 0-20 [facility] Comment on above: Result Comment: PERF ORMED BY: [place] [address] PATHOLOGIST OPERATIONS PLANNER TATYANA LUCIO M.D. Performed By: #### H S TROP, PT, PTT, CBC, CMP, MG, CK, CKMB #### [address] XR chest 1V portableon 02-15 XR chest 1V portable [facility] [place] [address] XRay Report Signed Patient: Bj Adame MR#: [id number] 4 : 1970 Acct:[id number] Age/Sex: 51 / M ADM Date: 02/15/22 Loc: ER Room: Type: PRE ER Attending Dr: Ordering Provider: Iraj Reilly MD Date of Service: 02/15/22 XR/XR chest 1V portable: Arrhythmia/Palpitation s Copies to: Iraj Reilly MD Plain film chestsingle view HISTORY:Fatigue. Heart racing. COMPARISON:None FINDINGS: The cardiac, mediastinal and hilar silhouettes are within normal limits. No acute lung process, pleural effusion or pneumothorax identified. Bony structures are intact. XR/XR chest 1V portable IMPRESSION: No acute process. Impression dictated by: Yong Bangura M.D.02/15/2022 6:24 PM Dictation Location: [place] [address] Transcribed By: [facility] 02/15/221823 Dictated By: Yong Bangura DO 02/15/221817 Signed By: 02/15/221823 Normal [facility] Vital Signs Date Time Vital Sign Value Performing Clinician Facility 05-29-2024 15:43-0400 Body height 193.04 cm [facility] 05-29-2024 15:43-0400 Body mass index (BMI) [Ratio] 45.1 kg/m2 [facility] 05-29-2024 15:43-0400 Body weight 167.94 kg [facility] 05-29-2024 15:43-0400 Diastolic blood pressure 93 mm[Hg] [facility] 05-29-2024 15:43-0400 Heart rate 80 /min [facility] 05-29-2024 15:43-0400 Respiratory rate 12 /min [facility] 05-29-2024 15:43-0400 Systolic blood pressure 146 mm[Hg] [facility] 12-03-2023 14:35-0500 Body height 193.04 cm [facility] 12-03-2023 14:35-0500 Body mass index (BMI) [Ratio] 45.5 kg/m2 [facility] 12-03-2023 14:35-0500 Body weight 169.7 kg [facility] 12-03-2023 14:35-0500 Diastolic blood pressure 92 mm[Hg] [facility] 12-03-2023 14:35-0500 Heart rate 115 /min [facility] 12-03-2023 14:35-0500 Respiratory rate 12 /min [facility] 12-03-2023 14:35-0500 Systolic blood pressure 132 mm[Hg] [facility] 10-21-2023 13:59-0500 Diastolic blood pressure 81 mm[Hg] Jaswinder Bo MD Work Phone: [facility] 10-21-2023 13:59-0500 Systolic blood pressure 132 mm[Hg] Jaswinder Bo MD Work Phone: [facility] 10-21-2023 13:29-0500 Body height 193 cm Jaswinder Bo MD Work Phone: [facility] 10-21-2023 13:29-0500 Body mass index (BMI) [Ratio] 44.92 kg/m2 Jaswinder Bo MD Work Phone: [facility] 10-21-2023 13:29-0500 Body weight 167.38 kg Jaswinder Bo MD Work Phone: [facility] 10-21-2023 13:29-0500 Heart rate 86 /min Jaswinder Bo MD Work Phone: [facility] 05-28-2023 14:30-0400 Body height 193.04 cm Devonte Ball Other [employer] Other 05-28-2023 14:30-0400 Body mass index (BMI) [Ratio] 43.45 kg/m2 Devonte Ball Other [employer] Other 05-28-2023 14:30-0400 Body weight 161.94 kg Devonte Ball Other [employer] Other 05-28-2023 14:30-0400 Diastolic blood pressure 87 mm[Hg] Devonte Ball Other [employer] Other 05-28-2023 14:30-0400 Respiratory rate 12 /min Devonte Ball Other [employer] Other 05-28-2023 14:30-0400 Systolic blood pressure 131 mm[Hg] Devonte Ball Other [employer] Other 11-26-2022 11:00-0500 Body height 193.04 cm Devonte Ball Other [employer] Other 11-26-2022 11:00-0500 Body mass index (BMI) [Ratio] 44.64 kg/m2 Devonte Ball Other [employer] Other 11-26-2022 11:00-0500 Body weight 166.38 kg Devonte Ball Other [employer] Other 11-26-2022 11:00-0500 Diastolic blood pressure 82 mm[Hg] Devonte Ball Other [employer] Other 11-26-2022 11:00-0500 Respiratory rate 12 /min Devonte Ball Other [employer] Other 11-26-2022 11:00-0500 Systolic blood pressure 126 mm[Hg] Devonte Ball Other [employer] Other 09-14-2022 09:22-0500 Diastolic blood pressure 89 mm[Hg] Devonte E Ball Work Phone: [employer] 250 DO Work Phone: 09-14-2022 09:22-0500 Systolic blood pressure 139 mm[Hg] Devonte E Ball Work Phone: [employer] [employer] 250 DO Work Phone: 09-14-2022 09:05-0500 Body height 193.04 cm Devonte E Ball [facility]: [facility] [employer] 250 DO Work Phone: 09-14-2022 09:05-0500 Body mass index (BMI) [Ratio] 45.04 kg/m2 Devonte E Ball Work Phone: [facility] 250 DO Work Phone: 09-14-2022 09:05-0500 Body surface area Derived from formula 2.88 m2 Devonte E Ball Work Phone: [facility] 250 DO Work Phone: 09-14-2022 09:05-0500 Body weight 167.83 kg Devonte E Ball Work Phone: [facility] 250 DO Work Phone: 09-14-2022 09:05-0500 Diastolic blood pressure 94 mm[Hg] Devonte E Ball Work Phone: [facility] 250 DO Work Phone: 09-14-2022 09:05-0500 Heart rate 72 /min Devonte E Ball Work Phone: [facility] 250 DO Work Phone: 09-14-2022 09:05-0500 Systolic blood pressure 162 mm[Hg] Devonte E Ball Work Phone: [facility] 250 DO Work Phone: 03-25-2022 13:48-0400 Diastolic blood pressure 88 mm[Hg] Devonte E Ball Work Phone: [facility] 250 DO Work Phone: 03-25-2022 13:48-0400 Systolic blood pressure 138 mm[Hg] Devonte E Ball Work Phone: [facility] 250 DO Work Phone: 03-25-2022 13:15-0400 Body height 193.04 cm Devonte E Ball Work Phone: [facility] 250 DO Work Phone: 03-25-2022 13:15-0400 Body mass index (BMI) [Ratio] 44.31 kg/m2 Devonte Zafar Ball Work Phone: [facility] 250 DO Work Phone: 03-25-2022 13:15-0400 Body surface area Derived from formula 2.86 m2 Devonte Zafar Ball Work Phone: [facility] 250 DO Work Phone: 03-25-2022 13:15-0400 Body weight 165.11 kg Devonte Zafar Ball Work Phone: [facility] 250 DO Work Phone: 03-25-2022 13:15-0400 Diastolic blood pressure 88 mm[Hg] Devonte Zafar Ball Work Phone: [facility] 250 DO Work Phone: 03-25-2022 13:15-0400 Heart rate 79 /min Devonte Zafar Ball Work Phone: [facility] 250 DO Work Phone: 03-25-2022 13:15-0400 Systolic blood pressure 142 mm[Hg] Devonte Galvez Work Phone: [facility] 250 DO Work Phone: Encounters Encounter Date Encounter Type Care Provider Facility Start: 05-29-2024 End: 05-29-2024 ambulatory [facility] Work Phone: Start: 05-29-2024 End: 05-29-2024 Encounter for general adult medical examination without abnormal findings [facility] Start: 05-29-2024 End: 05-29-2024 Patient encounter procedure [facility] Work Phone: Start: 12-03-2023 End: 12-03-2023 Patient encounter procedure [facility] Work Phone: Start: 12-03-2023 End: 12-03-2023 ambulatory [facility] Work Phone: Start: 12-03-2023 Telephone encounter Devonte Galvez [facility] Start: 10-21-2023 End: 10-21-[address] [facility] Start: 10-21-2023 End: 10-21-2023 Office outpatient visit 25 minutes Jaswinder Bo MD Work Phone: [facility] Comment on above: Persistent atrial fi brillation (CMS/HCC) (Primary Dx); Dilated aortic root (CMS/HCC); Essential hypertension, benign; Obstructive sleep apnea syndrome; BMI 40.0-44.9, adult (CMS/HCC); RBBB Start: 06-13-2023 End: 06-13-2023 ambulatory Devonte Galvez Other [employer] Other Start: 06-13-2023 Telephone encounter Devonte Galvez [facility] Start: 06-04-2023 End: 06-04-2023 ambulatory Devonte Galvez Other [employer] Other Start: 06-04-2023 Telephone encounter Devonte Galvez [facility] Start: 05-28-2023 End: 05-28-2023 ambulatory Devonte Galvez Other [employer] Other Start: 05-28-2023 Encounter for genera l adult medical examination without abnormal findings Devonte Galvez [facility] Start: 05-28-2023 Periodic preventive med est patient 40-64yrs Devonte Galvez [facility] Start: 04-05-2023 Rx Change Devonte bill Work Phone: [facility] 600 DO Work Phone: Start: 03-19-[address] DOCTOR SHEA Facility :H1 Start: 12-24-2022 End: 12-24-2022 ambulatory NONE LISTED REQUEST Facility:[facility]1 Start: 12-14-2022 Rx Renewal Devonte bill Work Phone: [facility] 250 DO Work Phone: Start: 11-26-2022 End: 11-26-2022 ambulatory Devonte Galvez Other [employer] Other Start: 11-26-2022 Office outpatient vi sit 25 minutes Devonte L[facility] Start: 10-08-2022 End: 10-08-2022 ambulatory NONE LISTED REQUEST Facility:[facility]1 Start: 09-14-2022 End: 09-15-[address] DEVONTE GALVEZ Facility:[facility]1 Start: 09-14-2022 Office outpatient vi sit 25 minutes Devonte E Ball Work Phone: [facility] 250 DO Work Phone: Start: 09-14-2022 ambulatory Devonte aGlvez Fa cility: Start: 06-26-2022 Adult health examination Devonte Galvez Other [facility] [employer] Other Start: 06-24-2022 End: 06-25-2022 ambulatory NONE LISTED REQUEST Facility:[facility]1 Start: 03-25-2022 Office outpatient vi sit 25 minutes Devonte E Lenny Work Phone: [facility] 250 DO Work Phone: Start: 03-25-2022 ambulatory Devonte Galvez Fa cility: Start: 02-18-[address] Mikey Jiang Facility:[id number] Start: 02-17-[address] Jax Aguirre Facility:[id number] Start: 02-16-[address] Jax Aguirre Facility:[id number] Start: 02-15-2022 End: 02-18-2022 [facility] and management [facility] Start: 02-15-[address] Mikey Jiang Faci lity:[id number] Procedures Date Procedure Procedure Detail Performing Clinician Start: 10-21-2023 ECG 12-LEAD JASWINDER CHAVEZ Start: 10-21-2023 Ecg routine ecg w/le ast 12 lds w/i&r Jaswinder Bo MD Work Phone: Start: 06-24-[address] NOLAND [place] [employer] Comment on above: Performed By: #### D ATPSA, DATBMP #### [facility] [address] [place] [address] [address] Amish Chowdhury Start: 05-19-2022 End: 09-04-2022 Depression screening Devonte Galvez Other Start: 10-18-2020 Total colonoscopy Urban Galvez Work Phone: Cardioversion Devonte bill Work Phone: Cholecystectomy Devonte power Work Phone: Plan of Treatment Date Care Activity Detail Author Start: 07-06-2029 DTaP/Tdap/Td Vaccine s (2 - Td or Tdap) DTaP/Tdap/Td Vaccines (2 - Td or Tdap) [facility] Start: 05-24-2024 End: 05-24-2024 Patient encounter procedure 05/24/2024 1:50 PM EDT Office Visit [facility] [address] [address] Jaswinder Bo MD 7[address] [facility] 2, [address] [address] [facility] Start: 10-21-2023 FUV, Provider: Jaswinder Bo, Status: Pen, Time: 1:20 PM FUV, Provider: Jaswinder Bo, Status: Pen, Time: 1:[address] [facility] 600 DO Work Phone: Start: 06-18-2023 Influenza vaccination Influenz a Vaccine (#1) [facility] Start: 03-04-2023 FUV, Provider: Jaswinder Bo, Status: Pen, Time: 3:00 PM FUV, Provider: Jaswinder Bo, Status: Pen, Time: 3:00 PM [facility] 250 DO Work Phone: Start: 09-22-2022 FUV, Provider: Jaswinder Bo, Status: Pen, Time: 3:20 PM FUV, Provider: Jaswinder Bo, Status: Pen, Time: 3:20 PM [facility] 250 DO Work Phone: Start: 11-08-2021 COVID-19 Vaccine (2 - Booster for Lonny series) COVID-19 Vaccine (2 - Booster for Lonny series) [facility] Start: 2019 Zoster Vaccines (1 of 2) Zoste r Vaccines (1 of 2) [facility] Start: 1987 Diabetes mellitus screening Diabetes Screening [facility] Start: 1987 Hepatitis C screening Hepatitis C Sc reening [facility] Start: 1970 MMR Vaccines (1 of 1 - Standard series) MMR Vaccines (1 of 1 - Standard series) [facility] Start: 1969 HIV screening HIV Screening [facility] Start: 1969 Lipid panel Lipid Panel [facility] Start: 1969 Screening for malign ant neoplasm of colon [facility] Start: 1969 Yearly Adult Physical Yearly Adult P hysical [facility] Comprehensive metabo lic 2000 panel - Serum or Plasma [facility] Immunizations Immunization Date Immunization Notes Care Provider Fa rowena 09-13-2021 Lonny COVID-19 Vaccine 0.5 ML Intramuscular Suspension Devonte Galvez Work Phone: [facility] 08-18-2021 influenza, seasonal, injectable Devonte Galvez Work Phone: [facility] 250 DO Work Phone: Comment on above: Series: 08-18-2021 influenza virus vaccine, unspecified formulation Jaswinder Bo MD Work Phone: [facility] Work Phone: 07-23-2020 influenza, injectabl e, quadrivalent, preservative free Devonte Galvez Work Phone: [facility] 250 DO Work Phone: 01-04-2020 hepatitis A and hepatitis B vaccine Devonte Galvez Work Phone: [facility] 08-24-2019 hepatitis A and hepatitis B vaccine [facility]vez [facility] Work Phone: 07-06-2019 hepatitis A and hepatitis B vaccine [facility] Galvez Work Phone: [facility] Work Phone: 07-06-2019 tetanus toxoid, redu navjot diphtheria toxoid, and acellular pertussis vaccine, adsorbed Devonte Galvez Work Phone: [facility] Payers Date Payer Category Payer Unknown 1970 Unknown [id number] 1970 Unknown [id number] . [id number] 1970 Unknown [id number] 1969 Unknown [id number] . [id number] 1969 Unknown [id number] 1970 Unknown [id number] . [id number] 1969 Unknown [id number] 2.16.84 [id number] 1970 Unknown [id number] 2.16.84 [id number] 1969 Unknown [id number] 2.16.84 [id number] 1969 Unknown [id number] 2.16.84 [id number] 1969 Unknown [id number] 2.16.8 [id number] 1959 Self-pay 1960 Unknown [id number] 1959 Unknown [id number] 2. [id number] Unknown [id number] 2.16.8 [id number] Unknown [id number] 2.16.84 [id number] Social History Date Type Detail Facility Start: 10-14-2023 No alcohol use No alcohol use [facility] [employer] 250 DO Work Phone: Start: 10-14-2023 Sex Assigned At [employer] Other Start: 02-16-2022 End: 02-16-2022 Tobacco smoking status NHIS Never smoked tobacco (finding) [facility] Start: 1970 Sex Assigned At Male [facility] Start: 10-14-2023 Tobacco use and exposure Smokeless tobacco non-user [facility] Work Phone: Start: 10-21-2023 Alcohol intake Lifetime non-d ana maría (finding) [facility] Work Phone: Start: 1970 Sex Assigned At Not on file [facility] Work Phone: Start: 10-11-2023 End: 10-21-2023 Exposure to SARS-CoV-2 (event) Not sure [facility] NEGATED: Highlighted row Denies Caffeine use Denies Caffeine use [facility] 250 DO Work Phone: Clinical Notes 11-26-2022 to 10-21-2023 Jaswinder Bo MD - 10/21/2023 1:20 PM ESTPatient Instructions Note Date & Type Note Facility 10-21-2023 History of Present illness Narrative Subjective Bj Adame is a 53 y.o. male Chief Complaint Follow-up HPI Patient is here for follow-up continue management for persistent atrial fibrillation status post prior cardioversion, hypertension, sleep apnea and obesity. Since last time I saw him he denies any cardiac complaint. Described functional class I. He denies chest pain, palpitation, lightheadedness, dizziness or syncope. He remains active and described functional class I. Assessment 1. Persistent atrial fibrillation status post ELVA guided cardioversion remain in normal sinus rhythm. Patient does have home heart rate monitoring device. He meet the criteria for anticoagulation. Remained in normal sinus rhythm 2. Hypertension controlled on home reading 3. Long-term anticoagulation tolerating that well without any side effect 4. Sleep apnea compliant with his CPAP 5. Morbid obesity with no significant weight gain 6. Mildly dilated aortic root at 3.8 centimeter 7. Newly observed right bundle branch block. Does not appear to be of clinical significance Plan 1. I recommend the patient to continue present medical therapy 2. I counseled him regarding losing weight, exercise and dietary modification. I advised him to consider bariatric surgery 3. I encouraged him to be compliant with his CPAP machine 4. The natural history of atrial fibrillation discussed with patient at length the possible recurrence and need for ablation and or antiarrhythmic discussed with the patient 5. Follow-up in 6 months or earlier if the need arise 6. We discussed ischemic evaluation but the patient elected to defer in view of excellent exercise tolerance and functional class I Review of Systems Cardiovascular: Positive for palpitations. All other systems reviewed and are negative. Visit Vitals BP 132/81 (BP Location: Right arm, Patient Position: Sitting) Pulse 86 Ht 1.93 m (6' 4 ) Wt (!) 167 kg (369 lb) BMI 44.92 kg/m Smoking Status Never BSA 2.99 m EKG done in office today Objective Physical Exam Constitutional: Appearance: Normal appearance. He is normal weight. HENT: Nose: Nose normal. Neck: Vascular: No carotid bruit. Cardiovascular: Rate and Rhythm: Normal rate. Pulses: Normal pulses. Heart sounds: Normal heart sounds. Pulmonary: Effort: Pulmonary effort is normal. Abdominal: General: Bowel sounds are normal. Palpations: Abdomen is soft. Genitourinary: Rectum: Normal. Musculoskeletal: General: Normal range of motion. Cervical back: Normal range of motion. Right lower leg: No edema. Left lower leg: No edema. Skin: General: Skin is warm and dry. Neurological: General: No focal deficit present. Mental Status: He is alert. Psychiatric: Mood and Affect: Mood normal. Behavior: Behavior normal. Thought Content: Thought content normal. Judgment: Judgment normal. Current Medications Current Outpatient Medications: dilTIAZem ER (Tiazac) 360 mg 24 hr capsule, Take 1 capsule (360 mg) by mouth once daily., Disp: 90 capsule, Rfl: 3 hydroCHLOROthiazide (HYDRODiuril) 25 mg tablet, Take 1 tablet (25 mg) by mouth once daily., Disp: 90 tablet, Rfl: 3 rivaroxaban (Xarelto) 20 mg tablet, Take 1 tablet (20 mg) by mouth once daily in the evening. Take with meals., Disp: 90 tablet, Rfl: 3 valsartan (Diovan) 320 mg tablet, Take 1 tablet (320 mg) by mouth once daily., Disp: 90 tablet, Rfl: 3 Assessment/Plan 1. Persistent atrial fibrillation (CMS/HCC) ECG 12 Lead Follow Up In Cardiology dilTIAZem ER (Tiazac) 360 mg 24 hr capsule hydroCHLOROthiazide (HYDRODiuril) 25 mg tablet rivaroxaban (Xarelto) 20 mg tablet 2. Dilated aortic root (CMS/HCC) 3. Essential hypertension, benign dilTIAZem ER (Tiazac) 360 mg 24 hr capsule hydroCHLOROthiazide (HYDRODiuril) 25 mg tablet valsartan (Diovan) 320 mg tablet 4. Obstructive sleep apnea syndrome 5. BMI 40.0-44.9, adult (CMS/HCC) 6. RBBB Scribe Attestation By signing my name below, Jazz Melvin LPN , Scribe attest that this documentation has been prepared under the direction and in the presence of Jaswinder Bo MD. documented in this encounter [facility] Work Phone: 10-21-2023 Instructions Jerome Powell MA - 10/21/2023 1:20 PM EST Please bring all medicines, vitamins, and herbal supplements with you when you come to the office. Prescriptions will not be filled unless you are compliant with your follow up appointments or have a follow up appointment scheduled as per instruction of your physician. Refills should be requested at the time of your visit. documented in this encounter [facility] Work Phone: 05-28-2023 Evaluation note Encounter Date Diagnosis Assessment Notes May, Wellness examination (ICD-10 - Z00.00) Healthy diet and exercise. Reviewed age-appropriate preventive testing recommended. May, Primary hypertension (ICD-10 - I10) This patient is instructed to consume a healthy, low-fat, low-salt diet. They are also encouraged to continue exercise to achieve/maintain a normal BMI. May, PAF (paroxysmal atrial fibrillation) (ICD-10 - I48.0) This patient is in NSR or rate controlled. This patient is anticoagulated to prevent thromboembolic events. They are maintaining regular scheduled appts with their top collar baster. No bleeding complications May, Aortic dilatation (ICD-10 - I77.819) Control BP, continue to follow w/ serial echocardiograms. May, Obstructive sleep apnea (ICD-10 - G47.33) This patient has been instructed on a low-fat, high-fiber diet. They are instructed to reduce calories, portion sizes and snacks. It is recommended that they exercise for 30 minutes, 3-5 times weekly. May, Elevated cholesterol (ICD-10 - E78.00) Instructed on diet and exercise with continued statin therapy.Discussed the beneficial effects of lowering cholesterol in reducing the risk for cerebrovascular and cardiovascular disease. May, Morbid (severe) obesity due to excess calories (ICD-10 - E66.01) This patient has been instructed on a low-fat, high-fiber diet. They are instructed to reduce calories, portion sizes and snacks. It is recommended that they exercise for 30 minutes, 3-5 times weekly. May, Body mass index [BMI] 40.0-44.9, adult (ICD-10 - Z68.41) May, Screening PSA (prostate specific antigen) (ICD-10 - Z12.5) [employer] Other 02-09-2023 Evaluation note* Encounter Date Diagnosis Assessment Notes Treatment Notes Treatment Clinical Notes Nov, Essential hypertension (ICD-10 - I10) This patient is instructed to consume a healthy, low-fat, low-salt diet. They are also encouraged to continue exercise to achieve/maintain a normal BMI. Nov, PAF (paroxysmal atrial fibrillation) (ICD-10 - I48.0) This patient is in NSR. This patient is anticoagulated to prevent thromboembolic events. They are maintaining regular scheduled appts with their top collar baster. Nov, Obstructive sleep apnea (ICD-10 - G47.33) This patient is aware of the benefits associated with ZORAN: With continued use, the patient reduces the risk for DC, CVA, HTN, cardiac dysrhythmias and sudden cardiac deaths.The patient is also aware of the association between ZORAN and morning headaches, daytime somnolence, fatigue and obesity, which also has been improved with continued use.The patient is compliant with treatment, wearing the equipment every night for greater than 4 hours.The patient is instructed to continue use of the CPAP for ZORAN treatment. Nov, Morbid exogenous obesity (ICD-10 - E66.01) This patient has been instructed on a low-fat, high-fiber diet. They are instructed to reduce calories, portion sizes and snacks. It is recommended that they exercise for 30 minutes, 3-5 times weekly. Nov, Elevated cholesterol (ICD-10 - E78.00) Diet and exercise with continued statin therapy. Nov, Aortic dilatation (ICD-10 - I77.819) Control BP, yearly Echocardiogram Nov, FDC (current) use of anticoagulants (ICD-10 - Z79.01) No bleeding complications, avoid stimulants [employer] Other Evaluation noteNo InformationNort [employer] Other Evaluation note* Diagnosis Onset Date Resolution Status Ascending aortic aneurysm ac [place] Elevated cholesterol acute Essential (primary) hypertension acute Obstructive sleep apnea acut e PAF (paroxysmal atrial fibrillation) acute [facility] [place] Work Phone: Evaluation note* Diagnosis Persistent atrial fibrillation (CMS/HCC)- Primary Atrial fibrillation Dilated aortic root (CMS/HCC) Thoracic aneurysm without mention of rupture Essential hypertension, benign Obstructive sleep apnea syndrome Obstructive sleep apnea (adult) (pediatric) BMI 40.0-44.9, adult (CMS/HCC) RBBB documented in this encounter [facility] Work Phone: Evaluation note* Diagnosis Onset Date Resolution Status Ascending aortic aneurysm ac [place] Elevated cholesterol acute Essential (primary) hypertension acute Obstructive sleep apnea acut e PAF (paroxysmal atrial fibrillation) acute Screening PSA (prostate specific antigen) noneactive Wellness examination noneact shirley [facility] [place] Work Phone: History general Narrative - Reported* Type Description Date Medical History Essential hypertension Medical History Acute bronchitis due to other sp ecified organisms Medical History Hypertriglyceridemia Medical History Hemorrhoids, external Medical History Perirectal abscess Medical History Obstructive sleep apnea Medical History Left ventricular hypertrophy Medical History Ascending aorta dilatation Medical History Elevated ratio of ch olesterol to high density lipoprotein (HDL) Medical History Seborrheic dermatitis of scalp Medical History PAF (paroxysmal atrial fibrillat ion) Surgical History LAB ABUNDIO 2009 Surgical History COLONOSCOPY 2020 Hospitalization History SEE SURGICAL HX [employer] Other History of Present illness Narrative* Patient is here for follow-up continue management he was recently in the hospital for persistent atrial fibrillation which was very difficult to controlled. Ultimately he underwent ELVA guided cardioversion which was successful. Since his discharge patient reported that he is feeling well. He deniescomplaint chest pain, palpitation, lightheadedness, dizziness or syncope. He described functional class I. He remained in normal sinus rhythm. He does have a home heart rate monitoring device that heuse and his heart rate has been controlled. He report his blood pressure has been running slightly on the higher range. He does have a history of sleep apnea which has been treated and he is on CPAP. * Assessment * 1. Persistent atrial fibrillation status post ELVA guided cardioversion remain in normal sinus rhythm. Patient does have home heart rate monitoring device. He made the criteria for anticoagulation * 2. Hypertension controlled but according to to him running slightly on the higher range * 3. Long-term anticoagulation tolerating that well without any side effect * 4. Sleep apnea compliant with his CPAP * 5. Morbid obesity * Plan * 1. I recommend the patient to increase his diltiazem to 360 to optimize blood pressure control * 2. I counseled him regarding losing weight, exercise and dietary modification and I told him his goal should be less than 350 by the time I see him next time * 3. I encouraged him to be compliant with his CPAP machine * 4. The natural history of atrial fibrillation discussed with patient at length the possible recurrence and need for ablation and or antiarrhythmic discussed with the patient * 5. Follow-up in 6 months or earlier if the need arise [facility] 250 DO Work Phone: History of Present illness Narrative* Patient is here for follow-up continue management for history of atrial fibrillation status post recent ELVA guided cardioversion, hypertension, long-term anticoagulation sleep apnea and obesity. Since last time I saw him he denies any cardiac complaint of chest pain, palpitation, lightheadedness, dizziness or syncope. He remains fairly active. He described functional class I. He had no chest painor shortness of breath. He report compliance with his medication and CPAP. He report laboratory data done recently and we will try to retrieve those results. He had no recurrence of his atrial fibrillation based on his home heart rate monitoring device * Assessment * 1. Persistent atrial fibrillation status post ELVA guided cardioversion remain in normal sinus rhythm. Patient does have home heart rate monitoring device. He made the criteria for anticoagulation. Remained in normal sinus rhythm * 2. Hypertension controlled on home reading * 3. Long-term anticoagulation tolerating that well without any side effect * 4. Sleep apnea compliant with his CPAP * 5. Morbid obesity * 6. Mildly dilated aortic root at 3.8 sonometer * Plan * 1. I recommend the patient to continue present medical therapy * 2. I counseled him regarding losing weight, exercise and dietary modification. I advised him to consider bariatric surgery * 3. I encouraged him to be compliant with his CPAP machine * 4. The natural history of atrial fibrillation discussed with patient at length the possible recurrence and need for ablation and or antiarrhythmic discussed with the patient * 5. Follow-up in 6 months or earlier if the need arise * 6. We discussed ischemic evaluation but the patient elected to defer in view of excellent exercise tolerance and functional class I [facility] 250 DO Work Phone: Chief Complaint * [facility] ELVA/DCC. * BJ ADAME is being seen for follow-up of a hospitalization for. BJ ADAME is being seen for a 6 month follow-up of. Family History Unknown Family Member Name Dates Details H/O aortic valve replacement : Father(V43.3, Z95.2) Status:Active Family history of hypertensi on: Mother(V17.49, Z82.49) Status:Active Unknown Family Member Name Dates Details H/O aortic valve replacement : Father(V43.3, Z95.2) Status:Active Family history of hypertensi on: Mother(V17.49, Z82.49) Status:Active Unknown Family Member Name Dates Details H/O aortic valve replacement : Father(V43.3, Z95.2) Status:Active Family history of hypertensi on: Mother(V17.49, Z82.49) Status:Active Unknown Family Member Name Dates Details H/O aortic valve replacement : Father(V43.3, Z95.2) Status:Active Family history of hypertensi on: Mother(V17.49, Z82.49) Status:Active Relationship Condition Age at Onset Recorded Date/T rashel Not Specified No pertinent family history Unknown Not Specified Hypertension Unknown father Heart disease Unknown Relationship Condition Age at Onset Recorded Date/T rashel Not Specified No pertinent family history Unknown mother Hypertension Unknown father Heart disease Unknown Summary Purpose Advance Directives Advance Directive Response Recorded Date/ Time Advance Directives No August 07, 2021 3:15pm Advance Directive Response Recorded Date/ Time Advance Directives No August 07, 2021 4:15pm Chief Complaint and Reason for Visit Chief Complaint 6 month Reason for Visit Ascending aortic ane urysm Elevated cholesterol Essential (primary) hypertension Obstructive sleep apnea PAF (paroxysmal atrial fibrillation) Chief Complaint wellness Reason for Visit Ascending aortic ane urysm Elevated cholesterol Essential (primary) hypertension Obstructive sleep apnea PAF (paroxysmal atrial fibrillation) Screening PSA (prostate specific antigen) Wellness examination Reason for Referral Specialty Diagnoses / Procedures Referred By Quintin arias Referred To Contact Diagnoses Persistent atrial fibrillation (CMS/HCC) Jaswinder Bo MD [address] [address] Referral ID Status Reason Start Date Expiration Date Visits Re quested Visits Authorized [id number] Closed 1 1 Specialty Diagnoses / Procedures Referred By Quintin arias Referred To Contact Cardiology Diagnoses Persistent atrial fibrillation (CMS/HCC) Procedures Follow Up In Cardiology Jaswinder Bo MD [address] [facility] 2, [place] [address] [place] [id number] Jaswinder Bo MD [address] [facility] [address], [address] [address] Referral ID Status Reason Start Date Expiration Date V isits Requested Visits Authorized [id number] Authorized 10/21/2023 10/20/2024 1 1 Specialty Diagnoses / Procedures Referred By Quintin arias Referred To Contact Diagnoses Persistent atrial fibrillation (CMS/HCC) Procedures ECG 12 Lead Jaswinder Bo MD [address] [facility] [address], [address] [address] Referral ID Status Reason Start Date Expiration Date V isits Requested Visits Authorized [id number] Pending Review 10/21/2023 10/20/2024 1 1 Additional Source Comments (unrecognized sect ion and content) No Status Records FoundNo Status Records FoundNo Status Records FoundNo Status Records FoundNo Status Records Found INFORMATION SOURCE (unrecogn ized section and content) DATE CREATED AUTHOR 09/14/2022 [facility] [place] DATE CREATED AUTHOR AUTHOR'S ORGANIZ ATION 09/14/2022 [employer] DATE CREATED AUTHOR AUTHOR'S ORGANIZ ATION 11/21/2022 [facility] DATE CREATED AUTHOR AUTHOR'S ORGANIZ ATION 03/26/2023 [facility] DATE CREATED AUTHOR AUTHOR'S ORGANIZ ATION 10/24/2023 [facility] REASON FOR VISIT (unrecogniz ed section and content) Reason Comments Follow-up 7-8m w ekg Specialty Diagnoses / Procedures Referred By Quintin arias Referred To Contact Diagnoses Persistent atrial fibrillation (CMS/HCC) Procedures ECG 12 Lead Jaswinder Bo MD [address] [facility] [address], [address] [address] Referral ID Status Reason Start Date Expiration Date V isits Requested Visits Authorized [id number] Pending Review 10/21/2023 10/20/2024 1 1 Care Teams (unrecognized sec tion and content) Team Status: Active Member Role Status Dates Devonte Galvez DO Primary Care Provider Active Team Status: Inactive Member Role Status Dates Devonte Galvez DO Primary Care Provide r, Attending Provider Active Start: December 03, 2023 End: December 03, 2023 [employer] Relationship Specialty Start Date End Date Devonte Galvez DO [address] [place] [id number] PCP - General Internal Medicine 10/21/23 Team Status: Inactive Member Role Status Dates Devonte Galvez DO Primary Care Provide r, Attending Provider Active Start: May 29, 2024 End: May 29, 2024 Goals (unrecognized section and content) Goals may be documented in a n alternate section FOR RECORDS PERTAINING TO PATIENTS WHO ARE OR HAVE BEEN ENROLLED IN A CHEMICAL DEPENDENCY/SUBSTANCEABUSE PROGRAM, SOME INFORMATION MAY BE OMITTED. This clinical summary was aggregated from multiple sources. Caution should be exercised in using it in the provision of clinical care. This summary normalizes information from multiple sources, and as a consequence, information in this document may materially change the coding, format and clinical context of patient data. In addition, data may be omitted in some cases. CLINICAL DECISIONS SHOULD BE BASED ON THE PRIMARY CLINICAL RECORDS. [facility] [employer] [facility]. provides no warranty or guarantee of the accuracy or completeness of information in this document.
[2024-06-02 07:23] LABS: Basophils Absolute Auto 0.1 10^3/uL (0.0-0.1); Basophils Percent Auto 0.7 % (0.2-2.0); Eosinophils Absolute Auto 0.1 10^3/uL (0.0-0.7); Eosinophils Percent Auto 1.2 % (0.9-7.0); Hematocrit 52.4 % (42.0-54.0); Hemoglobin 17.4 g/dL (14.0-18.0); Immature Granulocytes Abs Auto 0.02 10^3/uL (0.00-0.03); Immature Granulocytes Pct Auto 0.3 % (0.0-0.5); Lymphocytes Absolute Auto 1.8 10^3/uL (1.2-3.8); Mean Corpuscular HGB Conc 33.2 g/dL (29.9-35.2); Mean Corpuscular Volume 87.3 fL (80.0-94.0); Mean Platelet Volume 9.1 fL (9.5-13.5); Monocytes Absolute Auto 0.4 10^3/uL (0.3-0.8); Monocytes Percent Auto 4.7 % (1.7-12.0); Neutrophils Absolute Auto 5.2 10^3/uL (1.4-6.5); Neutrophils Percent Auto 69.1 % (43.0-75.0); Platelet Count 227 10^3/uL (150-450); Red Cell Distribution Width 13.1 % (11.0-15.0); White Blood Count 7.5 10^3/uL (4.0-11.0)
[2024-06-02 08:33] LABS: Alanine Aminotransferase 26 U/L (16-63); Albumin Level 3.5 g/dL (3.4-5.0); Alkaline Phosphatase 97 U/L (46-116); Anion Gap 12.3; Aspartate Amino Transferase 17 U/L (15-37); BUN Creatinine Ratio 15.1; Bilirubin Total 0.9 mg/dL (0.2-1.0); Calcium 9.2 mg/dL (8.5-10.1); Carbon Dioxide 29.3 mmol/L (21.0-32.0); Chloride 102 mmol/L (98-107); Chol HDL Ratio 3.5; Cholesterol 123 mg/dL (<=200); Estimated GFR (African America >60 (>=60); Estimated GFR (Non-African Ame >60 (>=60); Globulin 3.6 g/dL; Glucose 103 mg/dL (74-106); HDL Cholesterol 35 mg/dL (40-60); Potassium 3.6 mmol/L (3.5-5.1); Sodium 140 mmol/L (136-145); Total Protein 7.1 g/dL (6.4-8.2); Triglycerides 318 mg/dL (<=150); VLDL CHOLESTEROL 63.6 mg/dL
[2024-06-02 08:52] LABS: Prostate Specific Antigen Scrn 1.02 ng/mL (<=4.00)
== END 2024-06-02 06:54 | disposition home or self-care (01) ==
LOC: LAB 06:54
PROVIDERS: PCP Internal Medicine; Visit Provider Internal Medicine
DX: Z00.00 Encounter for general adult medical examination without abnormal findings (principal)
CPT/HCPCS: 36415; 80053; 80061; 85025; G0103

== ENCOUNTER 2025-01-12 08:53 | Outpatient (OUT) | payer OTHER, SELFPAY ==
--- OUTSIDE RECORDS SUMMARY | 2025-01-12 09:24 | XMS_ITS | CCD ---
Author Organization [facility] Care Team Providers Care [place] Operator Name Role Phone Lenny Devonte Zafar Unavailable Unavailable Unavailable Deidre, Dr. Mikey Weinberg Attending Kenisha vailable Devonte Galvez yeni Primary Care Unavailabl e Traboulvandana, Dr. Beyer Referring Unavaila ble Traboulssi, Dr. Beyer Attending Unavaila ble Devonte Galvez [facility] Care Unavailabl e Traboulsophiei, Dr. Beyer [...] Consulting Unavailable Devonte Galvez Unavailable LENNY, DR WHITNEY Attending Unavailable LENNY, DR WHITNEY Consulting Unavailable BALL, DR WHITNEY Primary Care Unavailable BALL, DR WHITNEY Admitting Unavailable REQUEST, DR MOMIN LISTED Consulting Unavaila ble BALL, DR WHITNEY Primary Care Unavailable REQUEST, DR MOMIN LISTED Admitting Unavaila ble REQUEST, DR MOMIN LISTED Attending Unavaila ble REQUEST, NONE LISTED Primary Care Unavaila ble MISC, DR ARTHUR Consulting Unavailable MISC, DR ARTHUR Admitting Unavailable MISC, DR ARTHUR Attending Unavailable REQUEST, NONE LISTED Primary Care Unavaila ble MISC, DR DOCTOR Consulting Unavailable MISC, DR DOCTOR Admitting Unavailable MISC, DOCTOR Attending Unavailable MISC, DOCTOR Attending Unavailable MISC, DOCTOR Primary Care Unavailable MISC, DOCTOR Admitting Unavailable Devonte Galvez DO Primary Care Provider Devonte Galvez DO Primary Care Provider JASWINDER BO Attending Unavailable JASWINDER BO Referring Unavailable DEVONTE GALVEZ Primary Care Unavailable Medications Current Medications Medication Drug Class(es) Dates Sig (Normalized) Sig (Original) Fish Oils (1 source) Start: 06-28-2024 End: 06-28-2025 take 2 capsules by mouth twice daily fish oil ([place]-3) 60-90-500 mg capsule Indications: Hypertriglyceridemia Take 2 capsules (1,000 mg) by mouth 2 times a day. 360 capsule 3 06/28/2024 06/28/2025 Active hydrocortisone 25 mg/ml topical cream (1 source) Corticosteroid Start: 09-22-2020 Proctosol HC 2.5 % 1 application Externally Twice a day for 10 day(s) Sep, Active Mens Multivitamin - (5 sources) Mens Multivitami n - as directed Orally Active Tswnfiwc-Izs-Tyqby- Vit K-Lycop (Men's Daily Formula) 400-20-300 mcg tablet (3 sources) Start: 12-02-2023 take 1 tablet by mouth once Nurasypf-Pof-Ekepe-Vit K-Lycop (Men's Daily Formula) 400-20-300 mcg tablet Active TAB PO December 02, 2023 1:00am Start: 12-02-2023 take 1 tablet by emil once Blmwpetl-Wzd-Baeag-Vit K-Lycop (Men's Daily Formula) 400-20-300 mcg tablet Active TAB PO December 02, 2023 12:00am Vitamin D 50 MCG (1999 UT) (4 sources) take 1 capsule by mo ut once daily Vitamin D 50 MCG (1999 UT) 1 capsule Orally Once a day Active Completed/Discontinued Medications Medication Drug Class(es) Dates Sig (Normalized) Sig (Original) amLODIPine 10 mg oral tablet (11 sources) Dihydropyridine Calcium Channel Dariana Start: 12-02-2023 End: 12-06-2023 take 1 tablet by mouth once daily Amlodipine 10 mg tablet Discontinued 10 MG PO Daily December 02, 2023 12:00am December 06, 2023 1:20pm Start: 08-13-2021 End: 02-18-2022 take 1 tablet by mouth once daily Amlodipine 10 mg tablet Discontinued 10 MG PO Daily August 12, 2021 11:00pm February 18, 2022 3:33pm atorvastatin 10 mg oral tablet (17 sources) HMG-CoA Reductase Inhibitor Start: 12-02-2023 End: 11-09-2024 take 1 tablet by mouth once daily Atorvastatin 10 mg tablet Discontinued 10 MG PO Daily December 03, 2023 3:27pm January 27, 2024 5:10pm cholecalciferol 0.05 mg oral capsule (4 sources) Vitamin D Start: 12-02-2023 End: 05-29-2024 take 1 capsule by mouth once daily Cholecalciferol (Vitamin D3) 50 mcg (2,000 unit) capsule Discontinued 50 MCG PO Daily December 02, 2023 12:00am May 29, 2024 3:04pm 24 hr dilTIAZem hydrochloride 240 mg extended release oral capsule (20 sources) Calcium Channel Dariana Start: 03-25-2022 End: 06-28-2025 take 1 capsule by mouth once daily Diltiazem Hcl 360 mg capsule,extended release 24hr Discontinued 360 MG PO Daily 90 90 May 29, 2024 3:04pm November 09, 2024 5:18pm Start: 02-18-2022 End: 12-06-2023 take 1 capsule by mouth once daily Diltiazem Hcl 240 mg capsule,extended release 24hr Discontinued 240 MG PO Daily December 03, 2023 3:28pm December 06, 2023 1:35pm hydroCHLOROthiazide 25 mg oral tablet (20 sources) Thiazide Diuretic Start: 08-13-2021 End: 06-28-2025 take 1 tablet by mouth once daily Hydrochlorothiazide 25 mg tablet Discontinued 25 MG PO Daily December 03, 2023 3:29pm January 27, 2024 5:10pm 24 hr metoprolol succinate 50 mg extended release oral tablet (3 sources) beta-Adrenergic Dariana Start: 08-13-2021 End: 02-15-2022 take 1 tablet by mouth every twenty-fou r hours Metoprolol Succinate 50 mg tablet extended release 24 hr Discontinued 50 MG PO As Directed August 12, 2021 11:00pm February 15, 2022 4:50pm rivaroxaban 20 mg oral tablet (20 sources) Factor Xa Inhibitor Start: 02-18-2022 End: 06-28-2025 take 1 tablet by mouth once daily Rivaroxaban (Xarelto) 20 mg tablet Discontinued 20 MG PO Daily December 03, 2023 3:29pm May 29, 2024 3:06pm valsartan 320 mg oral tablet (20 sources) Angiotensin 2 Receptor Dariana Start: 08-13-2021 End: 06-28-2025 take 1 tablet by mouth once daily Valsartan 320 mg tablet Discontinued 320 MG PO Daily December 03, 2023 3:30pm May 29, 2024 3:06pm Problems Active Problems Problem Classification Problem Date Documented Da te Episodic/Chronic Acute bronchitis (5 sources) Acute bronchitis; Translations: [Acute bronchitis due to other specified organisms] Episodic Anal and rectal conditions (9 sources) Perirectal abscess; Translations: [Rectal abscess] Episodic Aortic; peripheral; and visceral artery aneurysms (20 sources) Aortic root dilatation; Translations: [Thoracic aortic ectasia] Onset: 10-14-2023 Chronic Cardiac dysrhythmias (20 sources) Persistent atrial fibrillation; Translations: [Atrial fibrillation] Onset: 02-16-2022 Chronic Comment on above: Problem List clean-u p per request of Phys. EHR Cmte Conduction disorders (6 sources) Right bundle branch block; Translations: [Unspecified right bundle-branch block] Onset: 10-21-2023 10-21-2023 Chronic Disorders of lipid metabolism (20 sources) Hypertriglyceridemi a; Translations: [Pure hyperglyceridemia] Onset: 09-19-2022 Chronic Essential hypertension (20 sources) Benign essential hypertension; Translations: [Benign essential hypertension] Onset: 02-15-2022 Chronic Comment on above: Problem List clean-u p per request of Phys. EHR Cmte Hemorrhoids (9 sources) Residual hemorrhoidal skin tags; Translations: [Residual hemorrhoidal skin tags] Episodic Inflammation; infection of eye (except that caused by tuberculosis or sexually transmitteddisease) (4 sources) Acute atopic conjunctivitis; Translations: [Acute atopic conjunctivitis, bilateral] Episodic Other aftercare (5 sources) Long-term current use of anticoagulant; Translations: [intermediate accountant (current) use of anticoagulants] Episodic Other and ill-defined heart disease (5 [...] Episodic Other nutritional; endocrine; and metabolic disorders (14 sources) Body mass index 40+ - severely [...] Translations: [Body mass index (BMI) 40.0-44.9, adult (Multi)] Onset: 10-21-2023 Chronic Other nutritional; endocrine; and metabolic disorders (3 sources) Obesity caused by energy imbalance; Translations: [...] maxillary sinusitis, unspecified] Episodic Residual codes; unclassified (20 sources) Obstructive sleep apnea syndrome; Translations: [Obstructive sleep apnea (adult)(pediatric)] Onset: 10-14-2023 12-02-2023 Chronic Residual codes; unclassified (1 source) Sleep apnea, unspecified; Translations: [G47.30 - Sleep apnea, unspecified] Onset: 02-15-2022 Chronic Residual codes; unclassified (7 sources) Obstructive sleep apnea (adult) (pediatric); Translations: [Obstructive sleep apnea (adult)(pediatric)] Onset: 10-14-2023 Chronic Residual codes; unclassified (3 sources) Sleep apnea; Translations: [Sleep apnea, unspecified] 09-29-2023 Chronic Comment on above: Problem List clean-u p per request of Phys. EHR Cmte Sprains and strains (8 sources) Neck sprain; Translations: [Strain of muscle, fascia and tendon at neck level, initial encounter] Onset: 11-11-2016 Episodic Unclassified (1 source) I48.91 - Unspecified atrial fibrillation; Translations: [I48.91 - Unspecified atrial fibrillation] Onset: 02-15-2022 Unclassified (2 sources) Other persistent atrial fibrillation; Translations: [Other persistent atrial fibrillation (Multi)] Onset: 10-14-2023 Viral infection (4 sources) Disease caused by 2019-nCoV; Translations: [COVID-19] Past or Other Problems Problem Classification Problem Date Documented Da te Episodic/Chronic Cardiac dysrhythmias (4 sources) Palpitations; Translations: [Palpitations] Onset: 05-02-2019 Episodic Immunizations and screening for infectious disease (5 sources) Patient encounter status; Translations: [Other specified vaccination] Resolved: 03-04-2023 Episodic Other aftercare (7 sources) Drug therapy finding; Translations: [Long-term (current) use of anticoagulants] Onset: 06-28-2024 06-28-2024 Episodic Other aftercare (3 sources) intermediate accountant (current) use of anticoagulants; Translations: [intermediate accountant (current) use of anticoagulants] Onset: 06-28-2024 Episodic Unclassified (5 sources) Never smoked tobacco; Translations: [Never a smoker] Results Test Name Value Interpretation Reference Range Facility ECG 12 Leadon 10-21-2023 Normal sinus rhythm with right bundle branch block [facility] Work Phone: CBC AUTO DIFFon 12-24-2022 BASO # 0.1 103/ul Normal 0.0-0.1 [facility] Comment on above: Performed By: #### C BC #### [facility] [address] [address] [address] Amish Chowdhury Basophils/100 WBC (Bld) 0.7 % Normal 0.2-2.0 [facility] Comment on above: Performed By: #### C BC #### [facility] [address] [address] [address] Amish Chowdhury EO # 0.1 103/ul Normal 0.0-0.7 [facility] Comment on above: Performed By: #### C BC #### [facility] [address] [address] [address] Amish Chowdhury Eosinophils/100 WBC (Bld) 1.2 % Normal 0.9-7.0 [facility] Comment on above: Performed By: #### C BC #### [facility] [address] [address] [address] Amsih Chowdhury Erythrocyte distribution width (RBC) [Ratio] 12.8 % Normal 11.0-15.0 [facility] Comment on above: Performed By: #### C BC #### [facility] [address] [address] [address] Amish Chowdhury Hematocrit (Bld) [Volume fraction] 47.6 % Normal 42.0-54.0 [facility] Comment on above: Performed By: #### C BC #### [facility] [address] [address] [address] Amish Chowdhury Hemoglobin (Bld) [Mass/Vol] 16.8 g/dL Normal 14.0-18.0 [facility] Comment on above: Performed By: #### C BC #### [facility] [address] [address] [address] Amish Chowdhury IG # 0.02 10e3/ul Normal 0.00-0.03 [facility] Comment on above: Performed By: #### C BC #### [facility] [address] [place] [address] Dr. Amish Chowdhury IG % 0.3 % Normal 0.0-0.5 [facility] Comment on above: Performed By: #### C BC #### [facility] [address] [place] [address] Dr. Amish Chowdhury LYMPH # 1.9 103/ul Normal 1.2-3.8 [facility] Comment on above: Performed By: #### C BC #### [facility] [address] [place] [address] Dr. Amish Chowdhury Lymphocytes/100 WBC (Bld) 28.3 % Normal 20.5-60.0 [facility] Comment on above: Performed By: #### C BC #### [facility] [address] [place] [address] Dr. Amish Chowdhury MANUAL DIFF REQ NO Normal [facility] Comment on above: Performed By: #### C BC #### [facility] [address] [place] [address] Dr. Amish Chowdhury MCH (RBC) [Entitic mass] 29.9 pg Normal 25.9-34.0 [facility] Comment on above: Performed By: #### C BC #### [facility] [address] [place] [address] Dr. Amish Chowdhury MCHC (RBC) [Mass/Vol] 35.3 g/dL Critically high 29.9-35.2 [facility] Comment on above: Performed By: #### C BC #### [facility] [address] [place] [address] Dr. Amish Chowdhury MCV (RBC) [Entitic vol] 84.8 fL Normal 80.0-94.0 [facility] Comment on above: Performed By: #### C BC #### [facility] [address] [place] [address] Dr. Amish Chowdhury MONO # 0.2 103/ul Critically low 0.3-0.8 [facility] Comment on above: Performed By: #### C BC #### [facility] [address] [place] [address] Dr. Amish Chowdhury Monocytes/100 WBC (Bld) 3.6 % Normal 1.7-12.0 [facility] Comment on above: Performed By: #### C BC #### [facility] [address] [place] [address] Dr. Amish Chowdhury NEUT # 4.4 103/ul Normal 1.4-6.5 [facility] Comment on above: Performed By: #### C BC #### [facility] [address] [place] [address] Dr. Amish Chowdhury Neutrophils/100 WBC (Bld) 65.9 % Normal 43.0-75.0 [facility] Comment on above: Performed By: #### C BC #### [facility] [address] [place] [address] Dr. Amish Chowdhury Platelet mean volume (Bld) [Entitic vol] 8.9 fL Critically low 9.5-13.5 [facility] Comment on above: Performed By: #### C BC #### [facility] [address] [place] [address] Dr. Amish Chowdhury PLT 210 103/ul Normal 150-450 [facility] Comment on above: Performed By: #### C BC #### [facility] [address] [place] [address] Dr. Amish Chowdhury RBC 5.61 106/ul Normal 4.70-6.10 [facility] Comment on above: Performed By: #### C BC #### [facility] [address] [place] [address] Dr. Amish Chowdhury WBC 6.7 103/ul Normal 4.0-11.0 [facility] Comment on above: Performed By: #### C BC #### [facility] [address] [place] [address] Dr. Amish Chowdhury CBC AUTO DIFFon 10-08-2022 BASO # 0.0 103/ul Normal 0.0-0.1 [facility] Comment on above: Performed By: #### C BC #### [facility] [address] [place] [address] Dr. Amish Chowdhury Basophils/100 WBC (Bld) 0.3 % Normal 0.2-2.0 [facility] Comment on above: Performed By: #### C BC #### [facility] [address] [place] [address] Dr. Amish Chowdhury EO # 0.1 103/ul Normal 0.0-0.7 [facility] Comment on above: Performed By: #### C BC #### [facility] [address] [place] [address] Dr. Amish Chowdhury Eosinophils/100 WBC (Bld) 0.8 % Critically low 0.9-7.0 [facility] Comment on above: Performed By: #### C BC #### [facility] [address] [place] [address] Dr. Amish Chowdhury Erythrocyte distribution width (RBC) [Ratio] 13.1 % Normal 11.0-15.0 [facility] Comment on above: Performed By: #### C BC #### [facility] [address] [place] [address] Dr. Amish Chowdhury Hematocrit (Bld) [Volume fraction] 50.4 % Normal 42.0-54.0 [facility] Comment on above: Performed By: #### C BC #### [facility] [address] [place] [address] Dr. Amish Chowdhury Hemoglobin (Bld) [Mass/Vol] 17.4 g/dL Normal 14.0-18.0 [facility] Comment on above: Performed By: #### C BC #### [facility] [address] [place] [address] Dr. Amish Chowdhury IG # 0.03 10e3/ul Normal 0.00-0.03 [facility] Comment on above: Performed By: #### C BC #### [facility] [address] [place] [address] Dr. Amish Chowdhury IG % 0.3 % Normal 0.0-0.5 [facility] Comment on above: Performed By: #### C BC #### [facility] [address] [address] [address] Amish Chowdhury LYMPH # 2.5 103/ul Normal 1.2-3.8 [facility] Comment on above: Performed By: #### C BC #### [facility] [address] [place] [address] Dr. Amish Chowdhury Lymphocytes/100 WBC (Bld) 26.6 % Normal 20.5-60.0 [facility] Comment on above: Performed By: #### C BC #### [facility] [address] [place] [address] Dr. Amish Chowdhury MANUAL DIFF REQ NO Normal [facility] Comment on above: Performed By: #### C BC #### [facility] [address] [place] [address] Dr. Amish Chowdhury MCH (RBC) [Entitic mass] 29.8 pg Normal 25.9-34.0 [facility] Comment on above: Performed By: #### C BC #### [facility] [address] [place] [address] Dr. Amish Chowdhury MCHC (RBC) [Mass/Vol] 34.5 g/dL Normal 29.9-35.2 [facility] Comment on above: Performed By: #### C BC #### [facility] [address] [place] [address] Dr. Amish Chowdhury MCV (RBC) [Entitic vol] 86.3 fL Normal 80.0-94.0 [facility] Comment on above: Performed By: #### C BC #### [facility] [address] [place] [address] Dr. Amish Chowdhury MONO # 0.3 103/ul Normal 0.3-0.8 [facility] Comment on above: Performed By: #### C BC #### [facility] [address] [place] [address] Dr. Amish Chowdhury Monocytes/100 WBC (Bld) 3.6 % Normal 1.7-12.0 [facility] Comment on above: Performed By: #### C BC #### [facility] [address] [place] [address] Dr. Amish Chowdhury NEUT # 6.5 103/ul Normal 1.4-6.5 [facility] Comment on above: Performed By: #### C BC #### [facility] [address] [address] [address] Amish Chowdhury Neutrophils/100 WBC (Bld) 68.4 % Normal 43.0-75.0 [facility] Comment on above: Performed By: #### C BC #### [facility] [address] [address] [address] Amish Chowdhury Platelet mean volume (Bld) [Entitic vol] 9.5 fL Normal 9.5-13.5 [facility] Comment on above: Performed By: #### C BC #### [facility] [address] [place] [address] Dr. Amish Chowdhury PLT 226 103/ul Normal 150-450 [facility] Comment on above: Performed By: #### C BC #### [facility] [address] [place] [address] Dr. Amish Chowdhury RBC 5.84 106/ul Normal 4.70-6.10 [facility] Comment on above: Performed By: #### C BC #### [facility] [address] [place] [address] Dr. Amish Chowdhury WBC 9.6 103/ul Normal 4.0-11.0 [facility] Comment on above: Performed By: #### C BC #### [facility] [address] [place] [address] Dr. Amish Chowdhury DIRECT LDLon 09-14-2022 Cholesterol in LDL [Mass/Vol] 67 mg/dL Normal [facility] Comment on above: Performed By: #### A LT, DLDL #### [facility] [address] [place] [address] Dr. Amish Chowdhury DLDL NORMAL SEE BELOW Normal [facility] Comment on above: Result Comment: <100 mg/dl OPTIMAL 100 - 129 mg/dl NEAR OR ABOVE OPTIMAL 130 - 159 mg/dl BORDERLINE HIGH 160 - 189 mg/dl HIGH >190 mg/dl VERY HIGH Performed By: #### A LT, DLDL #### [facility] [address] [address] [address] Amish Chowdhury Office Visit (Cardiology)on 09-14-2022 [...] Vital Signs Recorded: 14Sep2022 09:22AMRecorded: 14Sep2022 09:05AM Qafortoa885, RUE, [id number], LUE, Sitting Kuhoquzag06, RUE, Djqtyje02, LUE, Sitting Heart Rate72, L Radial Height6 ft 4 in Atiasp837 lb BMI Ivjfrpkolz67.04 kg/m2 BSA Calculated2.88 Tobacco Useb) No Falls [...] no hepatomega (more content not included)... Normal [facility] SGPTon 09-14-2022 ALT [Catalytic activity/Vol] 27 U/L Normal 16-63 [facility] Comment on above: Performed By: #### A LT, DLDL #### [facility] [address] [place] [address] Dr. Amish Chowdhury Tobacco Screening.on 022 Fall risk assessment c) Not medically indicated [facility] [address] DO Work Phone: Tobacco use status [facility] b) No [facility] [address] DO Work Phone: CBC AUTO DIFFon 06-24-2022 BASO # 0.0 103/ul Normal 0.0-0.1 [facility] Comment on above: Performed By: #### D ATCBC #### [facility] [address] [place] [address] Dr. Amish Chowdhury Basophils/100 WBC (Bld) 0.3 % Normal 0.2-2.0 [facility] Comment on above: Performed By: #### D ATCBC #### [facility] [address] [place] [address] Dr. Amish Chowdhury EO # 0.1 103/ul Normal 0.0-0.7 [facility] Comment on above: Performed By: #### D ATCBC #### [facility] [address] [place] [address] Dr. Amish Chowdhury Eosinophils/100 WBC (Bld) 0.7 % Critically low 0.9-7.0 [facility] Comment on above: Performed By: #### D ATCBC #### [facility] [address] [place] [address] Dr. Amish Chowdhury Erythrocyte distribution width (RBC) [Ratio] 13.9 % Normal 11.0-15.0 [facility] Comment on above: Performed By: #### D ATCBC #### [facility] [address] [place] [address] Dr. Amish Chowdhury Hematocrit (Bld) [Volume fraction] 54.4 % Critically high 42.0-54.0 [facility] Comment on above: Performed By: #### D ATCBC #### [facility] [address] [place] [address] Dr. Amish Chowdhury Hemoglobin (Bld) [Mass/Vol] 17.9 g/dL Normal 14.0-18.0 [facility] Comment on above: Performed By: #### D ATCBC #### [facility] [facility] [address] [place] [address] Dr. Amish Chowdhury IG # 0.03 10e3/ul Normal 0.00-0.03 [facility] Comment on above: Performed By: #### D ATCBC #### [facility] [address] [place] [address] Dr. Amish Chowdhury IG % 0.3 % Normal 0.0-0.5 [facility] Comment on above: Performed By: #### D ATCBC #### [facility] [address] [place] [address] Dr. Amish Chowdhury LYMPH # 1.5 103/ul Normal 1.2-3.8 [facility] Comment on above: Performed By: #### D ATCBC #### [facility] [address] [place] [address] Dr. Amish Chowdhury Lymphocytes/100 WBC (Bld) 16.5 % Critically low 20.5-60.0 [facility] Comment on above: Performed By: #### D ATCBC #### [facility] [address] [place] [address] Dr. Amish Chowdhury MCH (RBC) [Entitic mass] 29.1 pg Normal 25.9-34.0 [facility] Comment on above: Performed By: #### D ATCBC #### [facility] [address] [place], [place] [id number] Dr. Amish Chowdhury MCHC (RBC) [Mass/Vol] 32.9 g/dL Normal 29.9-35.2 [facility] Comment on above: Performed By: #### D ATCBC #### [facility] [address] [address] [address] Amish Chowdhury MCV (RBC) [Entitic vol] 88.5 fL Normal 80.0-94.0 [facility] Comment on above: Performed By: #### D ATCBC #### [facility] [address] [address] [address] Amish Chowdhury MONO # 0.4 103/ul Normal 0.3-0.8 [facility] Comment on above: Performed By: #### D ATCBC #### [facility] [address] [place] [address] Dr. Amish Chowdhury Monocytes/100 WBC (Bld) 4.5 % Normal 1.7-12.0 [facility] Comment on above: Performed By: #### D ATCBC #### [facility] [address] [address] [address] Amish Chowdhury NEUT # 7.0 103/ul Critically high 1.4-6.5 [facility] Comment on above: Performed By: #### D ATCBC #### [facility] [address] [place] [address] Dr. Amish Chowdhury Neutrophils/100 WBC (Bld) 77.7 % Critically high 43.0-75.0 [facility] Comment on above: Performed By: #### D ATCBC #### [facility] [address] [address] [address] Amish Chowdhury Platelet mean volume (Bld) [Entitic vol] 9.4 fL Critically low 9.5-13.5 [facility] Comment on above: Performed By: #### D ATCBC #### [facility] [address] [address] [address] Amish Chowdhury PLT 238 103/ul Normal 150-450 [facility] Comment on above: Performed By: #### D ATCBC #### [facility] [address] [address] [address] Amish Chowdhury RBC 6.15 106/ul Critically high 4.70-6.10 [facility] Comment on above: Performed By: #### D ATCBC #### [facility] [address] [place] [address] Dr. Amish Chowdhury WBC 9.0 103/ul Normal 4.0-11.0 [facility] Comment on above: Performed By: #### D ATCBC #### [facility] [address] [address] [address] Amish Chowdhury GAIL- BMP WITH LIPIDon 2021 Anion gap [Moles/Vol] 10.4 mmol/L Normal [facility] Comment on above: Performed By: #### D ATPSA, DATBMP #### [facility] [address] [place] [address] Dr. Amish Chowdhury Calcium [Mass/Vol] 9.0 mg/dL Normal 8.5-10.1 [facility] Comment on above: Performed By: #### D ATPSA, DATBMP #### [facility] [address] [place] [address] Dr. Amish Chowdhury Chloride [Moles/Vol] 101 mmol/L Normal 98-107 [facility] Comment on above: Performed By: #### D ATPSA, DATBMP #### [facility] [address] [place] [address] Dr. Amish Chowdhury Cholesterol [Mass/Vol] 178 mg/dL Normal <=200 [facility] Comment on above: Performed By: #### D ATPSA, DATBMP #### [facility] [address] [place] [address] Dr. Amish Chowdhury Cholesterol in HDL [Mass/Vol] 41 mg/dL Normal 40-60 [facility] Comment on above: Performed By: #### D ATPSA, DATBMP #### [facility] [address] [place] [address] Dr. Amish Chowdhury Cholesterol in LDL [Mass/Vol] 90.0 mg/dL Normal [facility] Comment on above: Performed By: #### D ATPSA, DATBMP #### [facility] [address] [address] [address] Amish Chowdhury CO2 [Moles/Vol] 29.4 mmol/L Normal 21.0-32.0 [facility] Comment on above: Performed By: #### D ATPSA, DATBMP #### [facility] [address] [address] [address] Amish Chowdhury Creatinine [Mass/Vol] 1.21 mg/dL Normal 0.70-1.30 [facility] Comment on above: Performed By: #### D ATPSA, DATBMP #### [facility] [address] [address] [address] Amish Chowdhury EGFR-AF BURUNDIAN >60 Normal >=60 [facility] Comment on above: Performed By: #### D ATPSA, DATBMP #### [facility] [address] [address] [address] Amish Chowdhury EGFR-NON AF BURUNDIAN >60 Normal >=60 [facility] Comment on above: Performed By: #### D ATPSA, DATBMP #### [facility] [address] [address] [address] Amish Chowdhury Glucose [Mass/Vol] 107 mg/dL Critically high 74-106 [facility] Comment on above: Performed By: #### D ATPSA, DATBMP #### [facility] [address] [address] [address] Amish Chowdhury HDL NORMAL > or = 60 mg/dl - LO W CARDIOVASCULAR RISK <40 mg/dl - HIGH CARDIOVASCULAR RISK Normal [facility] Comment on above: Performed By: #### D ATPSA, DATBMP #### [facility] [address] [address] [address] Amish Chowdhury LDL CALC NORMAL SEE BELOW Normal [facility] Comment on above: Result Comment: <100 mg/dl OPTIMAL 100 - 129 mg/dl NEAR OR ABOVE OPTIMAL 130 - 159 mg/dl BORDERLINE HIGH 160 - 189 mg/dl HIGH >190 mg/dl VERY HIGH Performed By: #### D ATPSA, DATBMP #### [facility] [address] [address] [address] Amish Chowdhury Potassium [Moles/Vol] 3.8 mmol/L Normal 3.5-5.1 [facility] Comment on above: Performed By: #### D ATPSA, DATBMP #### [facility] [address] [address] [address] Amish Chowdhury Sodium [Moles/Vol] 137 mmol/L Normal 136-145 [facility] Comment on above: Performed By: #### D ATPSA, DATBMP #### [facility] [address] [address] [address] Amish Chowdhury Triglyceride [Mass/Vol] 235 mg/dL Critically high <=150 [facility] Comment on above: Performed By: #### D ATPSA, DATBMP #### [facility] [address] [address] [address] Amish Chowdhury Urea nitrogen [Mass/Vol] 11.0 mg/dL Normal 7.0-18.0 [facility] Comment on above: Performed By: #### D ATPSA, DATBMP #### [facility] [address] [address] [address] Amish Chowdhury Urea nitrogen/Creatinine [Mass ratio] 9.1 mg/mg Normal [facility] Comment on above: Performed By: #### D ATPSA, DATBMP #### [facility] [address] [address] [address] Amish Chowdhury VLDL CALC 47.0 mg/dL Normal [facility] Comment on above: Performed By: #### D ATPSA, DATBMP #### [facility] [address] [address] [address] Amish Chowdhury GLYCOHEMOGLOBIN A1Con 2021 ADA RECOMMENDATION SEE BELOW Normal [facility] Comment on above: Result Comment: ADA RECOMMENDED LIMIT 4.0 - 6.0 ADA THERAPEUTIC TARGET < 7.0 ACTION SUGGESTED > 7.0 Performed By: #### D ATA1C #### [facility] [address] [address] [address] Amish Chowdhury Glucose [Mass/Vol] 111 mg/dL Normal [facility] Comment on above: Performed By: #### D ATA1C #### [facility] [address] [place], [place] [address] Dr. Amish Chowdhury HbA1c (Bld) [Mass fraction] 5.5 % Normal 4.5-6.2 [facility] Comment on above: Performed By: #### D ATA1C #### [facility] [address] [place], [place] [address] Dr. Amish Chowdhury Office Visit (Cardiology)on 03-25-2022 [...] my name below, I, Lamar Kearney LPN. ,[employer], attest that this documentation has been prepared [...] Follow up in 6 months Chief Complaint [facility]/DCC. BJ ADAME is being seen [...] Vital Signs Recorded: 25Mar2022 01:48PMRecorded: 25Mar2022 01:15PM [id number], LUE, Sitting [id number], LUE, Sitting Heart Rate79, Apical Height6 ft 4 in Qhkavx716 lb BMI Jzylgvfync27.31 kg/m2 BSA Calculated2.86 Tobacco Useb) No PHQ-2 [...] in no (more content not included)... Normal [facility] Tobacco Screening.on 022 Adult depression screening assessment No [facility] 250 DO Work Phone: Tobacco use status [facility] b) No [facility] 250 DO Work Phone: Basic Metabolic Panelon 05-0 Calcium [Mass/Vol] 8.9 mg/dL Normal 8.2-10.2 [facility] Comment on above: Performed By: #### H S TROP, PT, PTT, CBC, CMP, MG, CK, CKMB #### [facility] [address] [place] [address] [place] Chloride [Moles/Vol] 101 mmol/L Normal 95-114 [facility] Comment on above: Performed By: #### H S TROP, PT, PTT, CBC, CMP, MG, CK, CKMB #### [facility] [address] [id number] [place] CO2 [Moles/Vol] 29.1 mmol/L Normal 22.0-30.0 [facility] Comment on above: Performed By: #### H S TROP, PT, PTT, CBC, CMP, MG, CK, CKMB #### [facility] [address] Creatinine [Mass/Vol] 1.25 mg/dL Normal 0.64-1.27 [facility] Comment on above: Performed By: #### H S TROP, PT, PTT, CBC, CMP, MG, CK, CKMB #### [address] Creatinine Clr Calc Pharmacy 115.57 [facility] Comment on above: Result Comment: PERF ORMED BY: [place] [address] PATHOLOGIST MARBLE MASON TATYANA LUCIO M.D. Performed By: #### H S TROP, PT, PTT, CBC, CMP, MG, CK, CKMB #### [address] Estimated GFR ( Polina > 60 [facility] Comment on above: Result Comment: GFR estimated reference range: According to KDOQI guidelines, <60 ml/min/1.73m2 is sufficient to diagnose a patient with chronic kidney disease. Performed By: #### H S TROP, PT, PTT, CBC, CMP, MG, CK, CKMB #### [address] Estimated GFR (Non- Am > 60 [facility] Comment on above: Performed By: #### H S TROP, PT, PTT, CBC, CMP, MG, CK, CKMB #### [address] Glucose [Mass/Vol] 104 mg/dL High 70-100 [facility] Comment on above: Result Comment: [place] Glucose Reference Range is dependent on time and content of last meal. Glucose of more than 200 mg/dL in a nonstressed, ambulatory subject supports the diagnosis of Diabetes Mellitus. ADA recommended reference range Performed By: #### H S TROP, PT, PTT, CBC, CMP, MG, CK, CKMB #### [address] Potassium [Moles/Vol] 4.0 mmol/L Normal 3.5-5.1 [facility] Comment on above: Performed By: #### H S TROP, PT, PTT, CBC, CMP, MG, CK, CKMB #### [facility] [address] Sodium [Moles/Vol] 139 mmol/L Normal 136-146 [facility] Comment on above: Performed By: #### H S TROP, PT, PTT, CBC, CMP, MG, CK, CKMB #### [facility] [address] Urea nitrogen [Mass/Vol] 13 mg/dL Normal 9-23 [facility] Comment on above: Performed By: #### H S TROP, PT, PTT, CBC, CMP, MG, CK, CKMB #### [facility] [address] ECG 12 lead ECGon 02-18-2022 ECG 12 lead ECG [facility] [place] [address] [place] [address] Electrocardiograph Report Signed Patient: Bj Adame MR#: [id number] 4 : 1970 Acct:[id number] Age/Sex: 51 / M ADM Date: 02/15/22 Loc: Room: [address] [place] [address] Type: DIS IN Attending Dr: Jane Sosa [...] significant change was found Confirmed by DEIDRE WALTERC, MIKEY ([id number]) on 02/18/2022 8:45:00 AM Referred By: Jaswinder Bo Electronically Signed By:MIKEY JIANG MD FACC Transcribed By: MUS Signed By Mikey Jiang MD, FAC 02/18/22 0845 [facility] ECG post procedureon 022 [place] [address] Electrocardiograph Report Signed Patient: Bj Adame MR#: [id number] 4 : 1970 Acct:[id number] Age/Sex: 51 / M ADM Date: 02/15/22 Loc: 4P Room: [address] [place] [address] Type: DIS IN Attending Dr: Jane Sosa [...] replaced Atrial flutter Confirmed by DEIDRE XIAO [facility], MIKEY ([id number]) on 02/19/2022 9:26:28 AM Referred By: Jaswinder Bo Electronically Signed By:MIKEY JIANG MD [facility] Transcribed By: MUS Signed By Mikey Jiang MD, [facility] 02/19/22 0926 [facility] ECH echo transesophageal ELVA on 02-18-2022 ECH echo transesophageal ELVA [facility] Main [place] [id number] Echocardiogram Signed Patient: Bj Adame MR#: [id number] 4 : 1970 Acct:[id number] Age/Sex: 51 / M ADM Date: 02/15/22 Loc: 4 Room: [address] [place] [address] Type: DIS IN Attending Dr: Jane Sosa MD Ordering Provider: Jane Sosa MD Date of Service: 02/18/22/ ECH/ECH echo transesophageal ELVA: PRECARDIOVERSION Copies to: MD [...] Ao root area: 16.9 cm2 Transcribed By: SCJaden Performed At: 02/18/22 1423 Signed By: Jaswinder Bo MD 02/18/22 1510 Normal [facility] Basic Metabolic Panelon 05 Calcium [Mass/Vol] 8.7 mg/dL Normal 8.2-10.2 [facility] Comment on above: Performed By: #### H S TROP, PT, PTT, CBC, CMP, MG, CK, CKMB #### [facility] [address] [place] [address] [facility] Chloride [Moles/Vol] 103 mmol/L Normal 95-114 [facility] Comment on above: Performed By: #### H S TROP, PT, PTT, CBC, CMP, MG, CK, CKMB #### [address] CO2 [Moles/Vol] 27.7 mmol/L Normal 22.0-30.0 [facility] Comment on above: Performed By: #### H S TROP, PT, PTT, CBC, CMP, MG, CK, CKMB #### [address] Creatinine [Mass/Vol] 1.30 mg/dL High 0.64-1.27 [facility] Comment on above: Performed By: #### H S TROP, PT, PTT, CBC, CMP, MG, CK, CKMB #### [address] Creatinine Clr Calc Pharmacy 112.03 [facility] Comment on above: Performed By: #### H S TROP, PT, PTT, CBC, CMP, MG, CK, CKMB #### [address] Estimated GFR ( Polina > 60 [facility] Comment on above: Result Comment: GFR estimated reference range: According to KDOQI guidelines, <60 ml/min/1.73m2 is sufficient to diagnose a patient with chronic kidney disease. Performed By: #### H S TROP, PT, PTT, CBC, CMP, MG, CK, CKMB #### [address] Estimated GFR (Non- Am 58 [facility] Comment on above: Performed By: #### H S TROP, PT, PTT, CBC, CMP, MG, CK, CKMB #### [address] Glucose [Mass/Vol] 109 mg/dL High 70-100 [facility] Comment on above: Result Comment: [place] om Glucose Reference Range is dependent on time and content of last meal. Glucose of more than 200 mg/dL in a nonstressed, ambulatory subject supports the diagnosis of Diabetes Mellitus. ADA recommended reference range Performed By: #### H S TROP, PT, PTT, CBC, CMP, MG, CK, CKMB #### [place] [address] [place] Potassium [Moles/Vol] 4.3 mmol/L Normal 3.5-5.1 [facility] Comment on above: Performed By: #### H S TROP, PT, PTT, CBC, CMP, MG, CK, CKMB #### [facility] [address] Sodium [Moles/Vol] 138 mmol/L Normal 136-146 [facility] Comment on above: Performed By: #### H S TROP, PT, PTT, CBC, CMP, MG, CK, CKMB #### [facility] [address] Urea nitrogen [Mass/Vol] 13 mg/dL Normal 9-23 [facility] Comment on above: Performed By: #### H S TROP, PT, PTT, CBC, CMP, MG, CK, CKMB #### [facility] [address] Complete Blood Count Auto Di ffon 02-16-2022 Basophils (Bld) [#/Vol] 0.1 10*3/uL Normal 0.0-0.2 [facility] Comment on above: Result Comment: PERF ORMED BY: [place] [address] PATHOLOGIST MARBLE MASON TATYANA LUCIO M.D. Performed By: #### C BC #### [place] [address] [place] Basophils/100 WBC (Bld) 1.1 % Normal . [facility] Comment on above: Performed By: #### C BC #### [place] [address] [place] Eosinophils (Bld) [#/Vol] 0.1 10*3/uL Normal 0.0-0.45 [facility] Comment on above: Performed By: #### C BC #### [address] Eosinophils/100 WBC (Bld) 1.2 % Normal . [facility] Comment on above: Performed By: #### C BC #### [facility] [address] Erythrocyte distribution width (RBC) [Ratio] 14.0 % Normal 12.0-14.8 [facility] Comment on above: Performed By: #### C BC #### [facility] [address] Hematocrit (Bld) [Volume fraction] 47.7 % Normal 38.8-50.0 [facility] Comment on above: Performed By: #### C BC #### [address] Hemoglobin (Bld) [Mass/Vol] 16.5 g/dL Normal 13.0-17.0 [facility] Comment on above: Performed By: #### C BC #### [address] Lymphocytes (Bld) [#/Vol] 2.0 10*3/uL Normal 1.00-4.8 [facility] Comment on above: Performed By: #### C BC #### [address] Lymphocytes/100 WBC (Bld) 24.5 % Normal . [facility] Comment on above: Performed By: #### C BC #### [address] MCH (RBC) [Entitic mass] 29.7 pg Normal 27.5-35.2 [facility] Comment on above: Performed By: #### C BC #### [address] MCV (RBC) [Entitic vol] 86.1 fL Normal 83.5-101 [facility] Comment on above: Performed By: #### C BC #### [address] Mean Corpuscular HGB Conc 34.5 g/dL Normal 32.5-35.6 [facility] Comment on above: Performed By: #### C BC #### [address] Monocytes (Bld) [#/Vol] 0.5 10*3/uL Normal 0.0-0.8 [facility] Comment on above: Performed By: #### C BC #### [facility] [address] [place] [address] [place] Monocytes/100 WBC (Bld) 5.5 % Normal . [facility] Comment on above: Performed By: #### C BC #### [facility] [address] [place] [address] [place] Neutrophils (Bld) [#/Vol] 5.6 10*3/uL Normal 1.8-7.7 [facility] Comment on above: Performed By: #### C BC #### [facility] [address] Neutrophils/100 WBC (Bld) 67.7 % Normal . [facility] Comment on above: Performed By: #### C BC #### [facility] [address] [place] [address] [place] Nucleated RBC/100 WBC (Bld) [Ratio] 0.0 % Normal 0-0.5 [facility] Comment on above: Performed By: #### C BC #### [facility] [address] [place] [address] [place] Platelet mean volume (Bld) [Entitic vol] 7.3 fL Normal 6.6-10.1 [facility] Comment on above: Performed By: #### C BC #### [facility] [address] [place] [address] [place] Platelets (Bld) [#/Vol] 225 10*3/uL Normal 150-450 [facility] Comment on above: Performed By: #### C BC #### [facility] [address] [place] [address] [place] RBC (Bld) [#/Vol] 5.54 10*6/uL Normal 3.90-5.60 [facility] Comment on above: Performed By: #### C BC #### [facility] [address] [place] [address] [place] WBC (Bld) [#/Vol] 8.2 10*3/uL Normal 4.5-11.0 [facility] Comment on above: Performed By: #### C #### [address] ECG 12 lead ECGon 02-16-2022 ECG 12 lead ECG [facility] [place] [address] Electrocardiograph Report Signed Patient: Bj Adame MR#: [id number] 4 : 1970 Acct:[id number] Age/Sex: 51 / M ADM Date: 02/15/22 Loc: 4P Room: [address] [place] [address] Type: DIS IN Attending Dr: Jane Sosa [...] change was found Confirmed by DEIDRE XIAO [facility], MIKEY ([id number]) on 02/16/2022 10:31:33 AM Referred By: Electronically Signed By:MIKEY JIANG MD [facility] Transcribed By: MUS Signed By Mikey Jiang MD, FACC 02/16/22 1031 Normal [facility] ECH echo transthoracicon ECH echo transthoracic [facility] [place] [address] Echocardiogram Signed Patient: Bj Adame MR#: [id number] 4 : 1970 Acct:[id number] Age/Sex: 51 / M ADM Date: 02/15/22 Loc: 4 Room: [address] [place] [address] Type: DIS IN Attending Dr: Jane Sosa MD Ordering Provider: Jane Sosa MD Date of Service: 02/15/2211/08/1999 E[facility] echo transthoracic: Arrhythmia/Palpitation s Copies to: Mikey Jiang MD, [facility] Jane Sosa MD BSA: 2.9 [...] 02/16/22 1014 Signed By: Mikey Jiang MD, [facility] 02/16/22 1506 Normal [facility] Lipid Panelon 02-16-2022 Cholesterol [Mass/Vol] 167 mg/dL Normal 140-200 [facility] Comment on above: Result Comment: Chol less than 200 mg/dl low risk Chol 201-239 mg/dl borderline risk Chol 240 mg/dl and greater high risk Performed By: #### H S TROP, PT, PTT, CBC, CMP, MG, CK, CKMB #### [facility] [address] Cholesterol in HDL [Mass/Vol] 28 mg/dL Low 29-71 [facility] Comment on above: Result Comment: HDL CHOL ATP-III CLASSIFICATION Cardiovascular Risk HDL > or equal to 60 mg/dL LOW HDL < 40 mg/dL HIGH Performed By: #### H S TROP, PT, PTT, CBC, CMP, MG, CK, CKMB #### [facility] [address] Cholesterol.total/Ch olesterol in HDL [Mass ratio] 6.0 {ratio} Normal <5.0 [facility] Comment on above: Result Comment: PERF ORMED BY: [place] [address] PATHOLOGIST MARBLE MASON TATYANA LUCIO M.D. Performed By: #### H S TROP, PT, PTT, CBC, CMP, MG, CK, CKMB #### [facility] [address] LDL Cholesterol,Calculat ed 93 mg/dL Normal 0-100 [facility] Comment on above: Result Comment: LDL ATP III CLASSIFICATION LDL less than 100 mg/dL Optimal LDL 100-129 mg/dL Near or above optimal LDL 130-159 mg/dL Borderline high LDL 160-189 mg/dL High LDL greater than 189 mg/dL Very high Performed By: #### H S TROP, PT, PTT, CBC, CMP, MG, CK, CKMB #### [place] [address] Triglyceride w/Reflex 228 mg/dL High 35-149 [facility] Comment on above: Result Comment: TRIG ATP III CLASSIFICATION TRIG less than 150 mg/dL Normal TRIG 150-199 mg/dL Borderline high TRIG 200-500 mg/dL High TRIG greater than 500 mg/dL Very high Standard traceable to the Center for Disease Conrtrol and Prevention (CDC) test method. Performed By: #### H S TROP, PT, PTT, CBC, CMP, MG, CK, CKMB #### [address] VLDL CHOLESTEROL 45 mg/dL Normal [facility] Comment on above: Performed By: #### H S TROP, PT, PTT, CBC, CMP, MG, CK, CKMB #### [address] B-Type Natriuretic Peptideon 02-15-2022 Natriuretic peptide B (Bld) [Mass/Vol] 64.0 pg/mL Normal 5-100 [facility] Comment on above: Order Comment: Comme nt add Result Comment: PERF ORMED BY: [place] [address] PATHOLOGIST MARBLE MASON TATYANA LUCIO M.D. Performed By: #### B MUD TEMPERER #### [address] COVID-19 Antigenon 2 COVID-19 Antigen Healthcare [...] developed and its performance characteristic determined by [employer] and validated at [facility]. This test has not been FDA cleared [...] for SARS Antigen by [employer] PERFORMED BY: [place] [address] PATHOLOGIST MARBLE MASON TATYANA LUCIO M.D. Normal [facility] Comment on above: Performed By: #### H S TROP, PT, PTT, CBC, CMP, MG, CK, CKMB #### [address] COVID-19 [facility] 02-15-2022 SARS-CoV-2 (COVID-19) RNA CLARY+probe Ql (Unsp spec) Negative Normal Negative [facility] Comment on above: Order Comment: Healt hcare Worker?: N Result Comment: Testing for SARS-CoV-2 by RT-PCR This test was developed and its performance characteristics determined by [place] and validated at the [facility]. This test has not been FDA cleared [...] is terminated or revoked sooner. PERFORMED BY: [place] [address] PATHOLOGIST MARBLE MASON TATYANA LUCIO M.D. Performed By: #### H S TROP, PT, PTT, CBC, CMP, MG, CK, CKMB #### [address] Complete Blood Count Auto Di ffon 02-15-2022 Basophils (Bld) [#/Vol] 0.1 10*3/uL Normal 0.0-0.2 [facility] Comment on above: Result Comment: PERF ORMED BY: [place] [address] PATHOLOGIST MARBLE MASON TATYANA LUCIO M.D. Performed By: #### H S TROP, PT, PTT, CBC, CMP, MG, CK, CKMB #### [address] Basophils/100 WBC (Bld) 0.8 % Normal . [facility] Comment on above: Performed By: #### H S TROP, PT, PTT, CBC, CMP, MG, CK, CKMB #### [address] Eosinophils (Bld) [#/Vol] 0.1 10*3/uL Normal 0.0-0.45 [facility] Comment on above: Performed By: #### H S TROP, PT, PTT, CBC, CMP, MG, CK, CKMB #### [address] Eosinophils/100 WBC (Bld) 0.7 % Normal . [facility] Comment on above: Performed By: #### H S TROP, PT, PTT, CBC, CMP, MG, CK, CKMB #### [place] [address] Erythrocyte distribution width (RBC) [Ratio] 13.7 % Normal 12.0-14.8 [facility] Comment on above: Performed By: #### H S TROP, PT, PTT, CBC, CMP, MG, CK, CKMB #### [address] Hematocrit (Bld) [Volume fraction] 51.8 % High 38.8-50.0 [facility] Comment on above: Performed By: #### H S TROP, PT, PTT, CBC, CMP, MG, CK, CKMB #### [address] Hemoglobin (Bld) [Mass/Vol] 17.9 g/dL High 13.0-17.0 [facility] Comment on above: Performed By: #### H S TROP, PT, PTT, CBC, CMP, MG, CK, CKMB #### [address] Lymphocytes (Bld) [#/Vol] 3.2 10*3/uL Normal 1.00-4.8 [facility] Comment on above: Performed By: #### H S TROP, PT, PTT, CBC, CMP, MG, CK, CKMB #### [address] Lymphocytes/100 WBC (Bld) 34.3 % Normal . [facility] Comment on above: Performed By: #### H S TROP, PT, PTT, CBC, CMP, MG, CK, CKMB #### [address] MCH (RBC) [Entitic mass] 29.9 pg Normal 27.5-35.2 [facility] Comment on above: Performed By: #### H S TROP, PT, PTT, CBC, CMP, MG, CK, CKMB #### [address] MCV (RBC) [Entitic vol] 86.7 fL Normal 83.5-101 [facility] Comment on above: Performed By: #### H S TROP, PT, PTT, CBC, CMP, MG, CK, CKMB #### [address] Mean Corpuscular HGB Conc 34.5 g/dL Normal 32.5-35.6 [facility] Comment on above: Performed By: #### H S TROP, PT, PTT, CBC, CMP, MG, CK, CKMB #### [address] Monocytes (Bld) [#/Vol] 0.4 10*3/uL Normal 0.0-0.8 [facility] Comment on above: Performed By: #### H S TROP, PT, PTT, CBC, CMP, MG, CK, CKMB #### [address] Monocytes/100 WBC (Bld) 4.7 % Normal . [facility] Comment on above: Performed By: #### H S TROP, PT, PTT, CBC, CMP, MG, CK, CKMB #### [address] Neutrophils (Bld) [#/Vol] 5.6 10*3/uL Normal 1.8-7.7 [facility] Comment on above: Performed By: #### H S TROP, PT, PTT, CBC, CMP, MG, CK, CKMB #### [address] Neutrophils/100 WBC (Bld) 59.5 % Normal . [facility] Comment on above: Performed By: #### H S TROP, PT, PTT, CBC, CMP, MG, CK, CKMB #### [place] [address] [place] Nucleated RBC/100 WBC (Bld) [Ratio] 0.5 % Normal 0-0.5 [facility] Comment on above: Performed By: #### H S TROP, PT, PTT, CBC, CMP, MG, CK, CKMB #### [place] [address] [place] Platelet mean volume (Bld) [Entitic vol] 7.6 fL Normal 6.6-10.1 [facility] Comment on above: Performed By: #### H S TROP, PT, PTT, CBC, CMP, MG, CK, CKMB #### [facility] [address] Platelets (Bld) [#/Vol] 278 10*3/uL Normal 150-450 [facility] Comment on above: Performed By: #### H S TROP, PT, PTT, CBC, CMP, MG, CK, CKMB #### [address] RBC (Bld) [#/Vol] 5.97 10*6/uL High 3.90-5.60 [facility] Comment on above: Performed By: #### H S TROP, PT, PTT, CBC, CMP, MG, CK, CKMB #### [address] WBC (Bld) [#/Vol] 9.4 10*3/uL Normal 4.5-11.0 [facility] Comment on above: Performed By: #### H S TROP, PT, PTT, CBC, CMP, MG, CK, CKMB #### [address] Comprehensive Metabolic Pane erin 02-15-2022 Albumin [Mass/Vol] 3.7 g/dL Normal 3.2-5.5 [facility] Comment on above: Performed By: #### H S TROP, PT, PTT, CBC, CMP, MG, CK, CKMB #### [address] Albumin/Globulin [Mass ratio] 1.1 {ratio} Normal [facility] Comment on above: Performed By: #### H S TROP, PT, PTT, CBC, CMP, MG, CK, CKMB #### [address] ALP [Catalytic activity/Vol] 65 U/L Normal 32-92 [facility] Comment on above: Performed By: #### H S TROP, PT, PTT, CBC, CMP, MG, CK, CKMB #### [address] ALT [Catalytic activity/Vol] 22 U/L Normal 10-60 [facility] Comment on above: Performed By: #### H S TROP, PT, PTT, CBC, CMP, MG, CK, CKMB #### [address] AST [Catalytic activity/Vol] 20 U/L Normal 10-42 [facility] Comment on above: Performed By: #### H S TROP, PT, PTT, CBC, CMP, MG, CK, CKMB #### [address] Bilirubin [Mass/Vol] 0.6 mg/dL Normal 0.3-1.2 [facility] Comment on above: Performed By: #### H S TROP, PT, PTT, CBC, CMP, MG, CK, CKMB #### [address] Calcium [Mass/Vol] 9.1 mg/dL Normal 8.2-10.2 [facility] Comment on above: Performed By: #### H S TROP, PT, PTT, CBC, CMP, MG, CK, CKMB #### [address] Chloride [Moles/Vol] 100 mmol/L Normal 95-114 [facility] Comment on above: Performed By: #### H S TROP, PT, PTT, CBC, CMP, MG, CK, CKMB #### [address] CO2 [Moles/Vol] 27.4 mmol/L Normal 22.0-30.0 [facility] Comment on above: Performed By: #### H S TROP, PT, PTT, CBC, CMP, MG, CK, CKMB #### [address] Creatinine [Mass/Vol] 1.31 mg/dL High 0.64-1.27 [facility] Comment on above: Performed By: #### H S TROP, PT, PTT, CBC, CMP, MG, CK, CKMB #### [facility] [address] Creatinine Clr Calc Pharmacy 107.84 [facility] Comment on above: Performed By: #### H S TROP, PT, PTT, CBC, CMP, MG, CK, CKMB #### [facility] [address] Estimated GFR ( Polina > 60 [facility] Comment on above: Result Comment: GFR estimated reference range: According to KDOQI guidelines, <60 ml/min/1.73m2 is sufficient to diagnose a patient with chronic kidney disease. Performed By: #### H S TROP, PT, PTT, CBC, CMP, MG, CK, CKMB #### [facility] [address] Estimated GFR (Non- Am 57 [facility] Comment on above: Performed By: #### H S TROP, PT, PTT, CBC, CMP, MG, CK, CKMB #### [facility] [address] Globulin (S) [Mass/Vol] 3.3 g/dL [facility] Comment on above: Performed By: #### H S TROP, PT, PTT, CBC, CMP, MG, CK, CKMB #### [facility] [address] Glucose [Mass/Vol] 97 mg/dL Normal 70-100 [facility] Comment on above: Result Comment: [facility] Glucose Reference Range is dependent on time and content of last meal. Glucose of more than 200 mg/dL in a nonstressed, ambulatory subject supports the diagnosis of Diabetes Mellitus. ADA recommended reference range Performed By: #### H S TROP, PT, PTT, CBC, CMP, MG, CK, CKMB #### [facility] [address] Potassium [Moles/Vol] 3.7 mmol/L Normal 3.5-5.1 [facility] Comment on above: Performed By: #### H S TROP, PT, PTT, CBC, CMP, MG, CK, CKMB #### [address] Protein [Mass/Vol] 7.0 g/dL Normal 6.1-7.9 [facility] Comment on above: Performed By: #### H S TROP, PT, PTT, CBC, CMP, MG, CK, CKMB #### [address] Sodium [Moles/Vol] 138 mmol/L Normal 136-146 [facility] Comment on above: Performed By: #### H S TROP, PT, PTT, CBC, CMP, MG, CK, CKMB #### [address] Urea nitrogen [Mass/Vol] 15 mg/dL Normal 9-23 [facility] Comment on above: Performed By: #### H S TROP, PT, PTT, CBC, CMP, MG, CK, CKMB #### [address] Creatine Kinaseon 02-15-2022 CK [Catalytic activity/Vol] 98 U/L Normal 22-269 [facility] Comment on above: Performed By: #### H S TROP, PT, PTT, CBC, CMP, MG, CK, CKMB #### [address] Creatinine Kinase MBon 02-15 CK.MB [Mass/Vol] 2.9 ng/mL Normal 0.6-6.3 [facility] Comment on above: Performed By: #### H S TROP, PT, PTT, CBC, CMP, MG, CK, CKMB #### [address] CKMB Relative Index 2.9 % High 0.00-2.50 [facility] Comment on above: Performed By: #### H S TROP, PT, PTT, CBC, CMP, MG, CK, CKMB #### [address] ECG 12 lead ECGon 02-15-2022 ECG 12 lead ECG [facility] [place] [address] Electrocardiograph Report Signed Patient: Bj Adame MR#: [id number] 4 : 1970 Acct:[id number] Age/Sex: 51 / M ADM Date: 02/15/22 Loc: 4P Room: [address] [place] [address] Type: DIS IN Attending Dr: Jane Sosa [...] BY 59 BPM Confirmed by DEIDRE XIAO [facility], MIKEY ([id number]) on 02/17/2022 9:03:02 AM Referred By: Electronically Signed By:MIKEY JIANG MD [facility] Transcribed By: MUS Signed By Mikey Jiang MD, FACC 02/17/22 0903 Normal [facility] ECG 12 lead ECG [facility] [place] [address] Electrocardiograph Report Signed Patient: Bj Adame MR#: [id number] 4 : 1970 Acct:[id number] Age/Sex: 51 / M ADM Date: 02/15/22 Loc: 4P Room: [address] [place] [address] Type: DIS IN Attending Dr: Jane Sosa [...] MUS Signed By Iraj Reilly MD 02/15/22 1906 Normal [facility] Magnesiumon 02-15-2022 Magnesium [Mass/Vol] 1.9 mg/dL Normal 1.6-2.6 [facility] Comment on above: Result Comment: PERF ORMED BY: [place] [address] PATHOLOGIST MARBLE MASON TATYANA LUCIO M.D. Performed By: #### H S TROP, PT, PTT, CBC, CMP, MG, CK, CKMB #### [facility] [address] [place] [address] Partial Thromboplastin Timeo n 02-15-2022 aPTT Coag (Bld) [Time] 32.6 s Normal 25.1-36.5 [facility] Comment on above: Result Comment: PERF ORMED BY: [place] [address] PATHOLOGIST MARBLE MASON TATYANA LUCIO M.D. Performed By: #### H S TROP, PT, PTT, CBC, CMP, MG, CK, CKMB #### [facility] [address] [place] [address] [place] Prothrombin Time INRon 02-15 INR Coag (PPP) [Relative time] 1.1 {INR} Normal [facility] Comment on above: Result Comment: INR Therapeutic [...] PTT, CBC, CMP, MG, CK, CKMB #### [address] PT Coag (PPP) [Time] 12.2 s Normal 9.0-12.9 [facility] Comment on above: Performed By: #### H S TROP, PT, PTT, CBC, CMP, MG, CK, CKMB #### [address] Xiao Ag Negativeon 02-16-20 22 Xiao Ag Negative Negative Normal Negative [facility] Comment on above: Result Comment: This is a duplicate Xiao SARS Antigen ([employer]IM[employer]) result to be used for statistical tracking purpose only. PERFORMED BY: [place] [address] PATHOLOGIST MARBLE MASON TATYANA LUCIO M.D. Performed By: #### H S TROP, PT, PTT, CBC, CMP, MG, CK, CKMB #### [address] Thyroid Stimulating Hormoneo n 02-15-2022 TSH Qn 1.94 m[IU]/L Normal 0.45-5.33 [facility] Comment on above: Result Comment: PERF ORMED BY: [place] [address] PATHOLOGIST MARBLE MASON TATYAAN LUCIO M.D. Performed By: #### H S TROP, PT, PTT, CBC, CMP, MG, CK, CKMB #### [address] Troponin I High Sensitivityo n 02-15-2022 Troponin I High Sensitivity 13 pg/mL Normal 0-20 [facility] Comment on above: Result Comment: PERF ORMED BY: [place] [address] PATHOLOGIST MARBLE MASON TATYANA LUCIO M.D. Performed By: #### H S TROP, PT, PTT, CBC, CMP, MG, CK, CKMB #### [address] Troponin I High Sensitivity 10 pg/mL Normal 0-20 [facility] Comment on above: Result Comment: PERF ORMED BY: [place] [address] PATHOLOGIST MARBLE MASON TATYANA LUCIO M.D. Performed By: #### H S TROP, PT, PTT, CBC, CMP, MG, CK, CKMB #### [address] XR chest 1V portableon 02-15 XR chest 1V portable [facility] [place] [address] [place] [address] XRay Report Signed Patient: Bj Adame MR#: [id number] 4 : 1970 Acct:[id number] Age/Sex: 51 / M ADM Date: 02/15/22 [...] Yong Bangura M.D.02/15/2022 6:24 PM Dictation Location: [place] [address] Transcribed By: [facility] 02/15/221823 Dictated By: Yong Bangura DO 02/15/221817 Signed By: 02/15/221823 Normal [facility] Vital Signs Date Time Vital Sign Value Performing Clinician Facility 11-30-2024 09:04050 Body height 193.04 cm [facility] 11-30-2024 09:040500 Body mass index (BMI) [Ratio] 41.3 kg/m2 [facility] 11-30-2024 09:040500 Body weight 154.22 kg [facility] 11-30-2024 09:04-0500 Diastolic blood pressure 81 mm[Hg] [facility] 11-30-2024 09:04-0500 Heart rate 81 /min [facility] 11-30-2024 09:04-0500 Respiratory rate 12 /min [facility] 11-30-2024 09:04-0500 Systolic blood pressure 143 mm[Hg] [facility] 06-28-2024 16:21-0400 Diastolic blood pressure 84 mm[Hg] Jaswinder Bo MD Work Phone: [facility] 06-28-2024 16:21-0400 Systolic blood pressure 135 mm[Hg] Jaswinder Bo MD Work Phone: [facility] 06-28-2024 15:25-0400 Body height 193 cm Jaswinder Bo MD Work Phone: [facility] 06-28-2024 15:25-0400 Body mass index (BMI) [Ratio] 44.43 kg/m2 Jaswinder Bo MD Work Phone: [facility] 06-28-2024 15:25-0400 Body weight 165.56 kg Jaswinder Bo MD Work Phone: [facility] 06-28-2024 15:25-0400 Heart rate 84 /min Jaswinder Bo MD Work Phone: [facility] 05-29-2024 15:43-0400 Body height 193.04 cm [facility] 05-29-2024 15:43-0400 Body mass index (BMI) [Ratio] 45.1 kg/m2 [facility] 05-29-2024 15:43-0400 Body weight 167.94 kg [facility] 05-29-2024 15:43-0400 Diastolic blood pressure 93 mm[Hg] [facility] 05-29-2024 15:43-0400 Heart rate 80 /min [facility] 05-29-2024 15:43-0400 Respiratory rate 12 /min [facility] 05-29-2024 15:43-0400 Systolic blood pressure 146 mm[Hg] [facility] 12-03-2023 14:35-0500 Body height 193.04 cm [facility] 12-03-2023 14:35-0500 Body mass index (BMI) [Ratio] 45.5 kg/m2 [facility] 12-03-2023 14:35-0500 Body weight 169.7 kg [facility] 12-03-2023 14:35-0500 Diastolic blood pressure 92 mm[Hg] [facility] 12-03-2023 14:35-0500 Heart rate 115 /min [facility] 12-03-2023 14:35-0500 Respiratory rate 12 /min [facility] 12-03-2023 14:35-0500 Systolic blood pressure 132 mm[Hg] [facility] 10-21-2023 13:59-0500 Diastolic blood pressure 81 mm[Hg] Jaswinder Bo MD Work Phone: [facility] 10-21-2023 13:59-0500 Systolic blood pressure 132 mm[Hg] Jaswinder Bo MD Work Phone: [facility] 10-21-2023 13:29-0500 Body height 193 cm Jaswinder Bo MD Work Phone: [facility] 10-21-2023 13:29-0500 Body mass index (BMI) [Ratio] 44.92 kg/m2 Jaswinder Bo MD Work Phone: [facility] 10-21-2023 13:29-0500 Body weight 167.38 kg Jaswinder Bo MD Work Phone: [facility] 10-21-2023 13:29-0500 Heart rate 86 /min Jaswinder Bo MD Work Phone: [facility] 05-28-2023 14:30-0400 Body height 193.04 cm Devonte Ball Other [employer] Other 05-28-2023 14:30-0400 Body mass index (BMI) [Ratio] 43.45 kg/m2 Devonte Ball Other [employer] Other 05-28-2023 14:30-0400 Body weight 161.94 kg Devonte Ball Other [employer] Other 05-28-2023 14:30-0400 Diastolic blood pressure 87 mm[Hg] Devonte Ball Other [employer] Other 05-28-2023 14:30-0400 Respiratory rate 12 /min Devonte Ball Other [employer] Other 05-28-2023 14:30-0400 Systolic blood pressure 131 mm[Hg] Devonte Ball Other [employer] Other 11-26-2022 11:00-0500 Body height 193.04 cm Devonte Ball Other [employer] Other 11-26-2022 11:00-0500 Body mass index (BMI) [Ratio] 44.64 kg/m2 Devonte Ball Other [employer] Other 11-26-2022 11:00-0500 Body weight 166.38 kg Devonte Ball Other [employer] Other 11-26-2022 11:00-0500 Diastolic blood pressure 82 mm[Hg] Devonte Ball Other [employer] Other 11-26-2022 11:00-0500 Respiratory rate 12 /min Devonte Ball Other [employer] Other 11-26-2022 11:00-0500 Systolic blood pressure 126 mm[Hg] Devonte Ball Other [facility] [employer] Other 09-14-2022 09:22-0500 Diastolic blood pressure 89 mm[Hg] Devonte E Ball Work Phone: [facility] [employer] [address] DO Work Phone: 09-14-2022 09:22-0500 Systolic blood pressure 139 mm[Hg] Devonte E Ball Work Phone: [facility] [employer] 250 DO Work Phone: 09-14-2022 09:05-0500 Body height 193.04 cm Devonte E Ball Work Phone: [facility] [employer] 250 DO Work Phone: 09-14-2022 09:05-0500 Body mass index (BMI) [Ratio] 45.04 kg/m2 Devonte E Ball Work Phone: [facility] [employer] DO Work Phone: 09-14-2022 09:05-0500 Body surface area Derived from formula 2.88 m2 Devonte E Ball Work Phone: [facility] [employer] 250 DO Work Phone: 09-14-2022 09:05-0500 Body weight 167.83 kg Devonte E Ball Work Phone: [facility] [employer] 250 DO Work Phone: 09-14-2022 09:05-0500 Diastolic blood pressure 94 mm[Hg] Devonte E Ball Work Phone: [facility] [employer] DO Work Phone: 09-14-2022 09:05-0500 Heart rate 72 /min Devonte E Ball Work Phone: [facility] [employer] 250 DO Work Phone: 09-14-2022 09:05-0500 Systolic blood pressure 162 mm[Hg] Devonte E Ball Work Phone: [facility] [address] DO Work Phone: 03-25-2022 13:48-0400 Diastolic blood pressure 88 mm[Hg] Devonte E Ball Work Phone: [facility] [address] DO Work Phone: 03-25-2022 13:48-0400 Systolic blood pressure 138 mm[Hg] Devonte E Ball Work Phone: [facility] [employer] DO Work Phone: 03-25-2022 13:15-0400 Body height 193.04 cm Devonte E Ball Work Phone: [facility] [employer] 250 DO Work Phone: 03-25-2022 13:15-0400 Body mass index (BMI) [Ratio] 44.31 kg/m2 Devonte Zafar Ball Work Phone: [facility] [employer] 250 DO Work Phone: 03-25-2022 13:15-0400 Body surface area Derived from formula 2.86 m2 Devonte E Ball Work Phone: [facility] [employer] 250 DO Work Phone: 03-25-2022 13:15-0400 Body weight 165.11 kg Devonte Zafar Ball Work Phone: [facility] [employer] 250 DO Work Phone: 03-25-2022 13:15-0400 Diastolic blood pressure 88 mm[Hg] Devonte E Ball Work Phone: [facility] 250 DO Work Phone: 03-25-2022 13:15-0400 Heart rate 79 /min Devonte E Ball Work Phone: [facility] [employer] 250 DO Work Phone: 03-25-2022 13:15-0400 Systolic blood pressure 142 mm[Hg] Devonte Galvez Work Phone: [facility] 250 DO Work Phone: Encounters Encounter Date Encounter Type Care Provider Facility Start: 11-30-2024 End: 11-30-2024 ambulatory [facility] Work Phone: Start: 11-30-2024 End: 11-30-2024 Patient encounter procedure [facility] Physician [facility] Work Phone: Start: 06-28-2024 End: 06-28-2024 Office outpatient visit 25 minutes Jaswinder Bo MD Work Phone: [facility] Comment on above: Persistent atrial fi brillation (Multi) (Primary Dx); RBBB; Essential hypertension, benign; Dilated aortic root ([facility]-HCC); BMI 40.0-44.9, adult (Multi); Obstructive sleep apnea syndrome; Anticoagulated; Hypertriglyceridemia Start: 06-28-2024 End: 06-28-2024 ambulatory [facility] Start: 05-29-2024 End: 05-29-2024 ambulatory [facility] Work Phone: Start: 05-29-2024 End: 05-29-2024 Encounter for general adult medical examination without abnormal findings [facility] Start: 05-29-2024 End: 05-29-2024 Patient encounter procedure [facility] Physician [facility] Work Phone: Start: 12-03-2023 End: 12-03-2023 Patient encounter procedure [facility] Physician [facility] Work Phone: Start: 12-03-2023 End: 12-03-2023 ambulatory [facility] Work Phone: Start: 12-03-2023 Telephone encounter Devonte ACOSTA [facility] Start: 10-21-2023 End: 10-21-2023 Office outpatient visit 25 minutes Jaswinder Bo MD Work Phone: [facility] Comment on above: Persistent atrial fi brillation (CMS/HCC) (Primary Dx); Dilated aortic root (CMS/HCC); Essential hypertension, benign; Obstructive sleep apnea syndrome; BMI 40.0-44.9, adult (CMS/HCC); RBBB Start: 06-13-2023 End: 06-13-2023 ambulatory Devonte Galvez Other [employer] Other Start: 06-13-2023 Telephone encounter Devonte Galvez [facility] Start: 06-04-2023 End: 06-04-2023 ambulatory Devonte Galvez Other [employer] Other Start: 06-04-2023 Telephone encounter Devonte ACOSTA [facility] Start: 05-28-2023 End: 05-28-2023 ambulatory Devonte Galvez Other [employer] Other Start: 05-28-2023 Encounter for loreto l adult medical examination without abnormal findings Devonte Galvez [facility] Start: 05-28-2023 Periodic preventive med est patient 40-64yrs [address] [facility] Start: 04-05-2023 Rx Change Devonte bill Work Phone: [facility] 600 DO Work Phone: Start: 03-19-[address] DOCTOR BHARDWAJ Facility :[facility] Start: 12-24-2022 End: 12-24-2022 ambulatory NONE LISTED REQUEST Facility:[facility] Start: 12-14-2022 Rx Renewal Devonte bill Work Phone: [facility] 250 DO Work Phone: Start: 11-26-2022 End: 11-26-2022 ambulatory Devonte Galvez Other [facility] Other Start: 11-26-2022 Office outpatient vi sit [address] [facility] Start: 10-08-2022 End: 10-08-2022 ambulatory NONE LISTED REQUEST Facility:H1 Start: 09-14-2022 End: 09-15-[address] DEVONTE GALVEZ Facility:H1 Start: 09-14-2022 Office outpatient vi sit 25 minutes Devonte Galvez Work Phone: [facility] 250 DO Work Phone: Start: 09-14-2022 ambulatory Devonte Max cility: Start: 06-26-2022 Adult health examination Devonte Galvez Other [facility] [employer] Other Start: 06-24-2022 End: 06-25-[address] MOMIN LISTED REQUEST Facility:H1 Start: 03-25-2022 Office outpatient vi sit 25 minutes Devonte Galvez Work Phone: [facility] 250 DO Work Phone: Start: 03-25-2022 ambulatory Devonte Galvez Fa cility: Start: 02-18-[address] Mikey Jiang Facility:[id number] Start: 02-17-[address] Jax Aguirre Facility:[id number] Start: 02-16-[address] Jax Aguirre Facility:[id number] Start: 02-15-2022 End: 02-18-2022 Evaluation and management of inpatient Latanya Mischler Facility:[facility] Start: 02-15-[address] Mikey Jiang Faci lity:[id number] Procedures Date Procedure Procedure Detail Performing Clinician Start: 10-21-2023 Ecg routine ecg w/le ast 12 lds w/i&r Jaswinder Bo MD Work Phone: Start: 06-24-[address] NUZHAT GALVEZ Comment on above: Performed By: #### D ATPSA, DATBMP #### [facility] [address] [place] [address] Dr. Amish Chowdhury Start: 05-19-2022 End: 09-04-2022 Depression screening Devonte Galvez Other Start: 10-18-2020 Total colonoscopy Urban Galvez Work Phone: Cardioversion Devonte bill Work Phone: [facility] Charisma Fern all Work Phone: Plan of Treatment Date Care Activity Detail Author Start: 07-06-2029 DTaP/Tdap/Td Vaccine s (2 - Td or Tdap) DTaP/Tdap/Td Vaccines (2 - Td or Tdap) [facility] Start: 12-27-2024 End: 12-27-2024 Patient encounter procedure 12/27/2024 3:50 PM EDT Office Visit [address] [place] [address] Jaswinder Bo MD [facility] [address], [address] [place] [address] [facility] Start: 06-18-2024 COVID-19 Vaccine ( season) COVID-19 Vaccine ( season) [facility] Start: 06-18-2024 Influenza vaccination Influenz a Vaccine (#1) [facility] Start: 05-24-2024 End: 05-24-2024 Patient encounter procedure 05/24/2024 1:50 PM EDT Office Visit [address] [place] [address] Jaswinder Bo MD [facility] 2, [facility] [address] [place] [address] [facility] Start: 10-21-2023 FUV, Provider: Jaswinder Bo, Status: Pen, Time: 1:20 PM FUV, Provider: Jaswinder Bo, Status: Pen, Time: 1:20 PM -[facility] 600 DO Work Phone: Start: 06-18-2023 Influenza vaccination Influenz a Vaccine (#1) [facility] Start: 03-04-2023 FUV, Provider: Jaswinder Bo, Status: Pen, Time: 3:00 PM FUV, Provider: Jaswinder Bo, Status: Pen, Time: 3:00 PM [facility] 250 DO Work Phone: Start: 09-22-2022 FUV, Provider: Jaswinder Bo, Status: Pen, Time: 3:20 PM FUV, Provider: Jaswinder Bo, Status: Pen, Time: 3:20 PM [facility] 250 DO Work Phone: Start: 11-08-2021 COVID-19 Vaccine (2 - Booster for Lonny series) COVID-19 Vaccine (2 - Booster for Lonny series) [facility] Start: 2019 Zoster Vaccines (1 of 2) Zoste r Vaccines (1 of 2) [facility] Start: 1987 Diabetes mellitus screening Diabetes Screening [facility] Start: 1987 Hepatitis C screening Hepatitis C Sc reening [facility] Start: 1970 MMR Vaccines (1 of 1 - Standard series) MMR Vaccines (1 of 1 - Standard series) [facility] Start: 1969 HIV screening HIV Screening [facility] Start: 1969 Lipid panel Lipid Panel [facility] Start: 1969 Screening for malign ant neoplasm of colon [facility] Start: 1969 Yearly Adult Physical Yearly Adult P hysical [facility] Comprehensive metabo lic 2000 panel - Serum or Plasma [facility] Immunizations Immunization Date Immunization Notes Care Provider Winter guaman 09-13-2021 Lonny COVID-19 Vaccine 0.5 ML Intramuscular Suspension Devonte Galvez Work Phone: [facility] 08-18-2021 influenza, seasonal, injectable Devonte Galvez Work Phone: [facility] 250 DO Work Phone: Comment on above: Series: 08-18-2021 influenza virus vaccine, unspecified formulation Jaswinder Bo MD Work Phone: [facility] Work Phone: 07-23-2020 influenza, injectabl e, quadrivalent, preservative free Devonte Galvez Work Phone: [facility] 250 DO Work Phone: 01-04-2020 hepatitis A and hepatitis B vaccine Devonte Galvez Work Phone: [facility] 08-24-2019 hepatitis A and hepatitis B vaccine Devonte Galvez Work Phone: [facility] 250 DO Work Phone: 07-06-2019 hepatitis A and hepatitis B vaccine Devonte Galvez Work Phone: [place] [address] DO Work Phone: 07-06-2019 tetanus toxoid, redu navjot diphtheria toxoid, and acellular pertussis vaccine, adsorbed Devonte Galvez Work Phone: [facility] Payers Date Payer Category Payer Unknown 1970 Unknown [id number] 1970 Unknown [id number] 2. [id number] 1970 Unknown [id number] 2. [id number] 1969 Unknown [id number] . [id number] 1969 Unknown [id number] 2. [id number] 1969 Unknown [id number] 2. [id number] 1969 Unknown [id number] .16.84 [id number] 1969 Unknown [id number] 2.16.84 [id number] 1969 Unknown [id number] 2.16.84 [id number] 1969 Unknown [id number] 2.16.84 [id number] 1969 Unknown [id number] 2.16.8 [id number] 1959 Self-pay 1959 Unknown [id number] 1959 Unknown [id number] 2. [id number] Unknown [id number] 2.16.8 [id number] Unknown [id number] 2.16.84 [id number] Social History Date Type Detail Facility Start: 10-14-2023 End: 10-21-2023 No alcohol use No alcohol use [facility] [employer] 250 DO Work Phone: Start: 10-14-2023 End: 10-21-2023 Sex Assigned At [employer] [facility] [employer] Other Start: 02-16-2022 End: 10-14-2023 Tobacco smoking status NHIS Never smoked tobacco (finding) [facility] Start: 1970 Sex Assigned At Male [facility] Start: 10-14-2023 Tobacco use and exposure Smokeless tobacco non-user [facility] Work Phone: Start: 10-21-2023 End: 06-28-2024 Alcohol intake Lifetime non-drinker (finding) [facility] Work Phone: Start: 1970 Sex Assigned At Not on file [facility] Work Phone: Start: 10-11-2023 End: 06-28-2024 Exposure to SARS-CoV-2 (event) Not sure [facility] Start: 11-30-2024 Sex Male (finding) [facility] NEGATED: Highlighted row Denies Caffeine use Denies Caffeine use [facility] [employer] 250 DO Work Phone: Clinical Notes 11-26-2022 to 06-28-2024 Jaswinder Bo MD - 06/28/2024 3:20 PM EDTPatient InstructionsJaswinder Bo MD - 10/21/2023 1:20 PM ESTPatient Instructions Note Date & Type Note Facility 06-28-2024 History of Present illness Narrative Subjective Bj Adame is a 54 y.o. male Chief Complaint Follow-up HPI Patient is here for follow-up continue management for persistent atrial fibrillation, hypertension, long-term anticoagulation and sleep apnea. Since last time I saw him he denies any cardiac complaint of chest pain, palpitation, lightheadedness, dizziness or syncope. He remains active. His recent laboratory data noted and reviewed with him. His triglyceride is elevated. Assessment 1. Persistent atrial fibrillation status post ELVA guided cardioversion remain in normal sinus rhythm. Patient does have home heart rate monitoring device. He meet the criteria for anticoagulation. Remained in normal sinus rhythm 2. Hypertension controlled on home reading 3. Long-term anticoagulation tolerating that well without any side effect 4. Sleep apnea compliant with his CPAP 5. Morbid obesity with minor weight loss 6. Mildly dilated aortic root at 3.8 centimeter 7. Newly observed right bundle branch block. Does not appear to be of clinical significance 8. Recent lipid profile suggest hypertriglyceridemia Plan 1. I recommend the patient to continue present medical therapy with the addition of fish oil 2000 mg daily 2. I counseled him regarding losing weight, [...] months or earlier if the need arise with an EKG 6. We discussed ischemic evaluation but the patient elected to defer in view of excellent exercise tolerance and functional class I Review of Systems All other systems reviewed and are negative. Vitals: 06/28/24 1525 06/28/24 1621 BP: 140/80 135/84 BP Location: Left arm Patient Position: Sitting Pulse: 84 Weight: (!) 166 kg (365 lb) Height: 1.93 m (6' 4 ) Objective Physical Exam Constitutional: Appearance: Normal appearance. HENT: Nose: Nose normal. Neck: Vascular: No carotid bruit. Cardiovascular: Rate and Rhythm: Normal rate. Pulses: Normal pulses. Heart sounds: Normal heart sounds. Pulmonary: Effort: Pulmonary effort is normal. Abdominal: General: Bowel sounds are normal. Palpations: Abdomen is soft. Musculoskeletal: General: Normal range of motion. Cervical back: Normal range of motion. Right lower leg: No edema. Left lower leg: No edema. Skin: General: Skin is warm and dry. Neurological: General: No focal deficit present. Mental Status: He is alert. Psychiatric: Mood and Affect: Mood normal. Behavior: Behavior normal. Thought Content: Thought content normal. Judgment: Judgment normal. Allergies Patient has no known allergies. Current Medications Current Outpatient Medications: dilTIAZem CD (Cardizem CD) 360 mg 24 hr capsule, Take 1 capsule (360 mg) by mouth once daily., Disp: 90 capsule, Rfl: 3 fish oil ([place]-3) 60-90-500 mg capsule, Take 2 capsules (1,000 mg) by mouth 2 times a day., Disp: 360 capsule, Rfl: 3 hydroCHLOROthiazide (HYDRODiuril) 25 mg [...] Rfl: 3 Assessment/Plan 1. Persistent atrial fibrillation (Multi) Follow Up In Cardiology dilTIAZem CD (Cardizem CD) 360 mg 24 hr capsule rivaroxaban (Xarelto) 20 mg tablet 2. RBBB 3. Essential hypertension, benign Follow Up In Cardiology dilTIAZem CD (Cardizem CD) 360 mg 24 hr capsule hydroCHLOROthiazide (HYDRODiuril) 25 mg tablet valsartan (Diovan) 320 mg tablet 4. Dilated aortic root (CMS-HCC) 5. BMI 40.0-44.9, adult (Multi) 6. Obstructive sleep apnea syndrome 7. Anticoagulated 8. Hypertriglyceridemia fish oil ([place]-3) 60-90-500 mg capsule Scribe Attestation By signing my name below, I, Shama Shirley LPN, Scribe attest that this documentation has been prepared under the direction and in the presence of Jaswinder Bo MD. Provider Attestation - Scribe documentation All medical record entries made by the Scribe were at my direction and personally dictated by me. I have reviewed the chart and agree that the record accurately reflects my personal performance of the history, physical exam, discussion and plan. documented in this encounter [facility] Work Phone: 06-28-2024 Instructions Shama Lund LPN - 06/28/2024 3:20 PM EDT Please bring all medicines, vitamins, and herbal supplements with you when you come to the office. Prescriptions will not be filled unless you are compliant with your follow up appointments or have a follow up appointment scheduled as per instruction of your physician. Refills should be requested at the time of your visit. Fish Oil 6 months BMI was above normal measurement. Current weight: (!) 166 kg (365 lb) Weight change since last visit (-) denotes wt loss -4 lbs Weight loss needed to achieve BMI 25: 160 Lbs Weight loss needed to achieve BMI 30: 119.1 Lbs Provided instructions on dietary changes Provided instructions on exercise. documented in this encounter [facility] Work Phone: 10-21-2023 History of Present illness Narrative Subjective [...] Scribe Attestation By signing my name below, IJazz LPN , Scribe attest that this documentation has been prepared under the direction and in the presence of Jaswinder Bo MD. documented in this encounter [facility] Work Phone: 10-21-2023 Instructions Jerome Powell MA [...] of your visit. documented in this encounter [facility] Work Phone: 05-28-2023 Evaluation note Encounter Date Diagnosis Assessment Notes 11 Aug, 2023 Wellness examination (ICD-10 - Z00.00) Healthy diet [...] are maintaining regular scheduled appts with their make up operator helper. No bleeding complications May, Aortic dilatation (ICD-10 [...] PSA (prostate specific antigen) (ICD-10 - Z12.5) [employer] Other 02-09-2023 Evaluation note* Encounter Date Diagnosis [...] are maintaining regular scheduled appts with their make up operator helper. Nov, Obstructive sleep apnea (ICD-10 - G47.33) This patient is aware of the benefits associated with ZORAN: With continued use, the patient reduces the risk for RI, CVA, HTN, cardiac dysrhythmias and sudden cardiac [...] - I77.819) Control BP, yearly Echocardiogram Nov, senior care (current) use of anticoagulants (ICD-10 - Z79.01) No bleeding complications, avoid stimulants [employer] Other Evaluation noteNo InformationNort Aubrey Other Evaluation note* Diagnosis Onset Date Resolution Status Ascending aortic aneurysm ac [place] Elevated cholesterol acute Essential (primary) hypertension acute Obstructive sleep apnea acut e PAF (paroxysmal atrial fibrillation) acute [facility] Work Phone: Evaluation note* Diagnosis Persistent atrial fibrillation (CMS/HCC)- Primary Atrial fibrillation Dilated aortic root (CMS/HCC) Thoracic aneurysm without mention of rupture Essential hypertension, benign Obstructive sleep apnea syndrome Obstructive sleep apnea (adult) (pediatric) BMI 40.0-44.9, adult (CMS/HCC) RBBB documented in this encounter [facility] Work Phone: Evaluation note* Diagnosis Onset Date Resolution Status Ascending aortic aneurysm ac [place] Elevated cholesterol acute Essential (primary) hypertension acute Obstructive sleep apnea acut e PAF (paroxysmal atrial fibrillation) acute Screening PSA (prostate specific antigen) noneactive Wellness examination noneact shirley [facility] Work Phone: Evaluation note* Diagnosis Persistent atrial fibrillation (Multi)- Primary Atrial fibrillation RBBB Essential hypertension, benign Dilated aortic root (CMS-HCC) Thoracic aneurysm without mention of rupture BMI 40.0-44.9, adult (Multi) Obstructive sleep apnea syndrome Obstructive sleep apnea (adult) (pediatric) Anticoagulated Encounter for long-term (current) use of anticoagulants Hypertriglyceridemia Pure hyperglyceridemia documented in this encounter [facility] Work Phone: Evaluation note* Diagnosis Onset Date Resolution Status Admit Date Ascending aortic aneurysm acute November 30, 2024 8:54am Elevated cholesterol acute Febr uary 2024 8:54am Essential (primary) hypertension acute November 30, 2 025 8:54am Obstructive sleep apnea acute F ebruary 2024 8:54am PAF (paroxysmal atrial fibrillation) acute November 30, 2 025 8:54am [facility] Work Phone: History general Narrative - Reported* [...] COLONOSCOPY 2020 Hospitalization History SEE SURGICAL HX [employer] Other History of Present illness Narrative* Patient [...] months or earlier if the need arise [facility] [employer] DO Work Phone: History of Present illness [...] excellent exercise tolerance and functional class I -[facility] 250 DO Work Phone: Reason for referral (narrative)* Consultation (Routine) - Authorized Specialty Diagnoses / Procedures Referred By Contac t Referred To Contact Cardiology Diagnoses Essential hypertension, benign Procedures Follow Up In Cardiology Jaswinder Bo MD [facility] 2, [address] [address] Jaswinder Bo MD [facility] [address], [address] [address] Referral ID Status Reason Start Date Expiration Date V isits Requested Visits Authorized [id number] Authorized 06/28/2024 06/28/2025 1 1 [facility] Work Phone: Chief Complaint * [facility] ELVA/DCC. * BJ ADAME is being seen for follow-up of a hospitalization for. BJ ADAME is being seen for a 6 month follow-up of. Family History No Family History Records FoundUnknown Family Member Name Dates Details H/O aortic [...] Heart disease Unknown Summary Purpose Advance Directives No Advanced Directives Records Found Advance Directive Response Recorded Date/ Time Advance [...] Screening PSA (prostate specific antigen) Wellness examination Chief Complaint Admit Date 6 month f/u November 30, 2024 8:54am Reason for Visit Admit Date Ascending aortic aneurysm November 30, 2024 8:54am Elevated cholesterol November 30, 2024 8:54am Essential (primary) hypertension uar y 2024 8:54am Obstructive sleep apnea November 30, 025 8:54am PAF (paroxysmal atrial fibrillation) Feb ruary 2024 8:54am Reason for Referral Specialty Diagnoses / Procedures Referred By Quintin arias Referred To Contact Diagnoses Persistent atrial fibrillation (CMS/HCC) Jaswinder Bo MD [address] [place] [address] 2, [address] [address] Referral ID Status Reason Start Date Expiration Date Visits Re quested Visits Authorized [id number] Closed 1 1 Specialty Diagnoses / Procedures Referred By Quintin arias Referred To Contact Cardiology Diagnoses Persistent atrial fibrillation (CMS/HCC) Procedures Follow Up In Cardiology Jaswinder Bo MD [facility] 2, [address] [address] TrabJaswinder starr MD [address] [facility] 2, [place] [address] [place] [address] Referral ID Status Reason Start Date Expiration Date V isits Requested Visits Authorized [id number] Authorized 10/21/2023 10/20/2024 1 1 Specialty Diagnoses / Procedures Referred By Contac t Referred To Contact Diagnoses Persistent atrial fibrillation (CMS/HCC) Procedures ECG 12 Lead Jaswinder Bo MD [address] [facility] 2, [address] [place] [address] Referral ID Status Reason Start Date Expiration Date V isits Requested Visits Authorized [id number] Pending Review 10/21/2023 10/20/2024 1 1 Additional Source Comments (unrecognized sect ion and content) No Status Records FoundNo Status Records FoundNo Status Records FoundNo Status Records FoundNo Status Records Found INFORMATION SOURCE (unrecogn ized section and content) DATE CREATED AUTHOR 09/14/2022 [facility] DATE CREATED AUTHOR AUTHOR'S ORGANIZ ATION 09/14/2022 [employer] DATE CREATED AUTHOR AUTHOR'S ORGANIZ ATION 11/21/2022 [facility] DATE CREATED AUTHOR AUTHOR'S ORGANIZ ATION 03/26/2023 [facility] DATE CREATED AUTHOR AUTHOR'S ORGANIZ ATION 12/08/2024 [facility] Ambulatory REASON FOR VISIT (unrecogniz ed section and content) Reason Comments Follow-up 7-8m w ekg Specialty Diagnoses / Procedures Referred By Contac t Referred To Contact Diagnoses Persistent atrial fibrillation (CMS/HCC) Procedures ECG 12 Lead Jaswinder Bo MD [address] [facility] [address], [place] [address] [place] [address] Referral ID Status Reason Start Date Expiration Date V isits Requested Visits Authorized [id number] Pending Review 10/21/2023 10/20/2024 1 1 Reason Comments Follow-up 7-8 m Specialty Diagnoses / Procedures Referred By Contac t Referred To Contact Cardiology Diagnoses Persistent atrial fibrillation (Multi) Procedures Follow Up In Cardiology Jaswinder Bo MD [address], [facility] [address] [place] [address] Jaswinder Bo MD [facility] 2, [facility] [address] [place] [address] Referral ID Status Reason Start Date Expiration Date V isits Requested Visits Authorized [id number] Authorized 10/21/2023 10/20/2024 1 1 Care Teams (unrecognized sec tion and content) Team Status: Active Member Role Status Dates Devonte Galvez DO Primary Care Provider Active Team Status: Inactive Member Role Status Dates Devonte Galvez DO Primary Care Provide r, Attending Provider Active Start: December 03, 2023 End: December 03, 2023 [employer] Relationship Specialty Start Date End Date Devonte Galvez DO [address] [place] [address] PCP - General Internal Medicine 10/21/23 Team Status: Inactive Member Role Status Dates Devonte Galvez DO Primary Care Provide r, Attending Provider Active Start: May 29, 2024 End: May 29, 2024 [employer] Relationship Specialty Start Date End Date Devonte Galvez DO PCP - General Internal Medicine 10/21/23 Team Status: Inactive Member Role Status Dates Devonte Galvez DO Primary Care Provide r, Attending Provider Active Start: November 30, 2024 End: November 30, 2024 Goals (unrecognized section and content) Goals [...] BE BASED ON THE PRIMARY CLINICAL RECORDS. [facility] [employer] [facility]. provides no warranty or guarantee of the accuracy or completeness of information in this document.
--- NOTE | 2025-01-12 15:14 | CT_ITS ---
The [address] [address] Patient Name: BJ ADAME MRN: [id number] date: 1970 Sex: M Assigned Patient Location: CT Current Patient Location: CT Accession/Order Number: [id number] Exam Date: 01/12/2025 16:10 Report Date: 01/12/2025 16:12 At the request of: DEMETRIUS FORREST DO Procedure: CT angio chest CTA chest CLINICAL DATA: Asymmetry aortic aneurysm.. TECHNIQUE: Intravenous contrast-enhanced CT angiography of the chest was performed. Axial, sagittal, coronal, and 3D-dimensional reconstructions were created and reviewed. These CT exams were performed using one or more of the following dose reduction techniques: Automated exposure control, adjustment of the mA and/or kV according to patient size, or use of iterative reconstruction technique. COMPARISON: None. FINDINGS: Chest: Mediastinum:The aorta appears normal in caliber with the ascending thoracic aorta measuring 4.3 cm. No aneurysm, dissection or rupture is seen. Pulmonary trunk appears nondilated. No pericardial effusion. No lymphadenopathy. The esophagus is grossly unremarkable. Lungs:No consolidation pneumothorax or pleural effusion. No suspicious pulmonary nodule. Abd: No acute findings.[ Soft tissues/Bones: No acute findings. Osseous structures demonstrate degenerative change. CT/CT angio chest IMPRESSION: No CT evidence of thoracic aortic aneurysm by ACR criteria. No acute process is noted. Impression dictated by: Rodríguez Gandhi Jr., D.O.01/12/2025 4:12 PM Dictation Location: [employer] Electronically authenticated by: [id number] Date: 01/12/2025 16:12
== END 2025-01-12 08:54 | disposition home or self-care (01) ==
LOC: CT 09:05
PROVIDERS: PCP Internal Medicine; Visit Provider Internal Medicine
DX: I71.21 Aneurysm of the ascending aorta, without rupture (principal)
CPT/HCPCS: 71275; Q9967